=== PATIENT | male | born 1960 | race Caucasian/White ===

== ENCOUNTER → 2016-12-30 | Outpatient (CLI) | payer BC ==
[~2016-12-30] MED LIST: ALL300 PO; ATOR-22 PO; CALC667C4 PO; CARV12.52 PO; CINA0.42 PO; METO5TAB25 PO; NXM/40 PO; SUCR1TAB29 PO
== END | disposition home or self-care (01) ==
LOC: C.LABPBG 09:39
PROVIDERS: ATTEND Internal Medicine
DX: N18.4 Chronic kidney disease, stage 4 (severe) (principal)

== ENCOUNTER → 2017-01-04 | Outpatient (CLI) | payer BC ==
--- NOTE | 2017-01-04 16:09 | DIAGNOSTIC IMAGING REPORT ---
ABDOMEN AND PELVIS CT WITHOUT CONTRAST CT DOSE: 1066.80 mGycm HISTORY: Nephrocalcinosis flank pain TECHNIQUE: Multiaxial CT images of the abdomen and pelvis were performed without contrast. COMPARISON STUDY: 02/15/2006 FINDINGS: Liver spleen and pancreas are unremarkable in general configuration. There is a trace amount of air within the gallbladder neck as well as one small focus within the gallbladder fundus. There is trace amount of air within the left hepatic ductal system. Bowel pattern is considered nonobstructive. The appendix is normal. There is no evidence for an obstructing urinary tract calculus. Kidneys show a showed evidence for stone or progressive atrophy compared to the prior study. IMPRESSION: 1. Trace amount of air within the gallbladder and biliary ductal system possibly a postoperative or postsphincterotomy bases. 2. This finding should be correlated with patient's clinical history. 3. Nonobstructive bowel pattern with the appendix normal. 4. Progressive atrophy of the kidneys with no evidence for an obstructing hernia tract calculus. Electronically signed by: Jaziel Hernandez M.D. 01/04/2017 4:07 PM Dictated Date/Time: 01/04/2017 4:02 PM
== END | disposition home or self-care (01) ==
LOC: C.CTS 15:44
PROVIDERS: ATTEND Internal Medicine
DX: I10 Essential (primary) hypertension (principal); I27.2 Other secondary pulmonary hypertension; N18.4 Chronic kidney disease, stage 4 (severe); Z01.810 Encounter for preprocedural cardiovascular examination; N26.1 Atrophy of kidney (terminal)

== ENCOUNTER → 2017-03-18 | Outpatient (CLI) | payer BC ==
--- NOTE | 2017-03-18 16:21 | DIAGNOSTIC IMAGING REPORT ---
CHEST 2 VIEWS ROUTINE HISTORY: N18.4 Chronic kidney disease, stage IV (severe)I42.0 Dilated cardiomyopathy COMPARISON: Chest 12/13/2014. FINDINGS: Stable 11 mm calcified granuloma within the left upper lobe. No pleural effusions. No pneumothorax. Moderate cardiomegaly has slightly improved. No focal lung consolidations to suggest pneumonia. No evidence for pulmonary edema. Stable mild engorgement of the central pulmonary vessels. IMPRESSION: Slight improvement in the moderate cardiomegaly. No acute process within the chest. Electronically signed by: Juan Thompson M.D. 03/18/2017 4:20 PM Dictated Date/Time: 03/18/2017 4:18 PM
== END | disposition home or self-care (01) ==
LOC: C.RAD1850 15:56
PROVIDERS: ATTEND Internal Medicine
DX: N18.4 Chronic kidney disease, stage 4 (severe) (principal); I42.0 Dilated cardiomyopathy

== ENCOUNTER → 2017-03-25 | Outpatient (CLI) | payer BC ==
[2017-03-25 13:00] LABS: HEMATOCRIT 39.2 % (42-52); MEAN CELL VOLUME 102.3 fL (80-100); MEAN CORPUSCULAR HEMOGLOBIN 33.4 pg (25-34); MEAN CORPUSCULAR HGB CONC 32.7 g/dl (32-36); PLATELET COUNT 106 K/uL (130-400); RED BLOOD COUNT 3.83 M/uL (4.7-6.1)
[2017-03-25 13:04] LABS: INR 1.1 (0.9-1.1); PARTIAL THROMBOPLASTIN RATIO 1.1; PROTHROMBIN TIME (PATIENT) 11.7 SECONDS (9.0-12.0)
[2017-03-25 13:17] LABS: BASO % 0.2 %; BASO ABS # 0.01 K/uL (0-0.2); COMPLETE YES; IG% 0.2 %; LYMPH % 24.2 %; LYMPH ABS # 1.45 K/uL (1.2-3.4); NEUT % 59.4 %
[2017-03-25 13:44] LABS: BLOOD UREA NITROGEN 38 mg/dl (7-18); BUN/CREATININE RATIO 4.4 (10-20); CALCIUM 9.1 mg/dl (8.5-10.1); CARBON DIOXIDE 31 mmol/L (21-32); CHLORIDE 99 mmol/L (98-107); GLUCOSE 112 mg/dl (70-99); POTASSIUM 4.7 mmol/L (3.5-5.1); SODIUM 139 mmol/L (136-145)
== END | disposition home or self-care (01) ==
LOC: C.LABPBG 08:35
PROVIDERS: ATTEND Internal Medicine
DX: Z01.810 Encounter for preprocedural cardiovascular examination (principal); D64.9 Anemia, unspecified; N18.4 Chronic kidney disease, stage 4 (severe); I27.2 Other secondary pulmonary hypertension; I42.0 Dilated cardiomyopathy

== ENCOUNTER 2017-04-21 12:00 | Inpatient (IN) | payer BC ==
[~2017-04-21] VITALS: Ht 182.9 cm; Wt 100.9 kg
[~2017-04-21 12:00] MED LIST changes: -NXM/40 PO; -SUCR1TAB29 PO
[2017-04-21] MEDS ORDERED: OCTREOTIDE IV BOLUS & DRIP IV STA (12:14)
[2017-04-21] MEDS ORDERED: SODIUM CHLORIDE 0.9% 1000ML 1,000 ML IV STA (12:14)
[2017-04-21 12:24] LABS: BASO % 0.3 %; BASO ABS # 0.03 K/uL (0-0.2); COMPLETE YES; EOS % 3.6 %; HEMATOCRIT 30.5 % (42-52); IG% 0.3 %; LYMPH % 11.5 %; LYMPH ABS # 1.11 K/uL (1.2-3.4); MEAN CORPUSCULAR HEMOGLOBIN 33.1 pg (25-34); MEAN CORPUSCULAR HGB CONC 32.8 g/dl (32-36); MEAN PLATELET VOLUME 10.5 fL (7.4-10.4); MONO % 5.8 %; NEUT % 78.5 %; PLATELET COUNT 109 K/uL (130-400); RED BLOOD COUNT 3.02 M/uL (4.7-6.1); WHITE BLOOD COUNT 9.68 K/uL (4.8-10.8)
[2017-04-21 12:35] LABS: INR 1.1 (0.9-1.1); PARTIAL THROMBOPLASTIN RATIO 0.9; PROTHROMBIN TIME (PATIENT) 12.2 SECONDS (9.0-12.0)
--- NOTE | 2017-04-21 12:44 | DIAGNOSTIC IMAGING REPORT ---
SINGLE VIEW CHEST CLINICAL HISTORY: GI bleeding. FINDINGS: An AP, portable, upright chest radiograph is compared to study dated 03/18/2017. The examination is degraded by portable technique and patient rotation. The heart is markedly enlarged and there is atherosclerotic calcification of the thoracic aorta. The pulmonary vasculature is noncongested. No airspace consolidation, large pleural effusion, or pneumothorax is seen. A calcified granuloma in the left upper lobe is similar to previous. The skeletal structures appear osteopenic. The bony thorax is grossly intact. IMPRESSION: Marked cardiomegaly with no acute cardiopulmonary abnormality. Electronically signed by: Dameon Bunn M.D. 04/21/2017 12:43 PM Dictated Date/Time: 04/21/2017 12:42 PM
[2017-04-21] MEDS ORDERED: PANTOprazole INJ 80 MG in DEXTROSE 5% 100ML IV ONE (12:45)
[2017-04-21] MEDS ORDERED: OCTREOTIDE ACETATE INJ 100 MCG in SYRINGE 9 ML IV ONE (12:45)
[2017-04-21] MEDS ORDERED: OCTREOTIDE ACETATE INJ 500 MCG in NSS 100ML IV SCH (12:45)
[2017-04-21 12:59] LABS: BUN/CREATININE RATIO 3.6 (10-20); CALCIUM 8.6 mg/dl (8.5-10.1); CKMB/CK RATIO 2.1 (0-3.0); CREATININE 5.7 mg/dl (0.60-1.40); POTASSIUM 4.7 mmol/L (3.5-5.1)
[2017-04-21] MEDS ORDERED: PANTOprazole INJ 40 MG in DEXTROSE 5% 100ML IV SCH (13:00)
--- NOTE | 2017-04-21 14:29 | NEPHROLOGY CONSULTATION ---
DATE OF CONSULTATION: 04/21/2017 DATE OF CONSULTATION: 04/21/2017 SUBJECTIVE: Mr. Carbajal is a 56-year-old gentleman from [place], [place]. He has been a long time patient of mine. I have managed the problems and complications of his end-stage renal disease. Mr. Carbajal has a history of chronic kidney disease dating back many years. He never had a kidney biopsy. Presumably his chronic kidney disease is secondary to chronic glomerulonephritis. He had a sister who had end-stage renal disease as well and had had 2 heart transplants. She also had cardiac issues and had a heart transplant. She has since . Nonetheless, Mr. Carbajal has done remarkably well over the years. He progressed to end-stage renal disease in September of 2014 and was begun on maintenance dialysis at that time. Currently he is dialyzed at the [facility]. He dialyzes 3 times per week. He has been remarkably stable on dialysis. Even prior to initiating dialysis he has been on a transplant list at [facility]. There are some concerns about his acceptability as a transplant candidate because of previously recognized pulmonary hypertension as well as a low cardiac ejection fraction. Nonetheless, Mr. Carbajal has had no problems with shortness of breath. He has never had any indication of congestive heart failure. He has no problems with chest pain and he has not been recognized as having chronic pulmonary disease other than the elevated pulmonary artery pressure. During a recent cardiac catheterization, his AV fistula was occluded and there was a dramatic decrease in the degree of his elevated pulmonary artery pressure. Therefore, that change made him a more acceptable dialysis candidate. However, his ejection fraction is just below an acceptable range. Nonetheless, his evaluation for transplant is ongoing both at [facility] in [place] as well as the [facility] in [place]. As noted, his dialysis treatments are uncomplicated. He feels remarkably well. He works 5-6 days a week. 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 He remains physically active as a worker in that company as well. He leaves dialysis treatments and go straight to work for he will put in an additional 8 hours a day or more doing relatively heavy work. He has a secondary anemia associated with his dialysis treatments. That has been controlled with erythrocyte stimulating agents. His other health issues include a history of hypertension, but his blood pressure is controlled with dialysis. He also has a history of hypercholesterolemia. That is controlled with atorvastatin 20 mg daily. He also has a history of gout but that has been controlled well with allopurinol 300 mg daily. His immediate problem is one of generalized weakness, orthostasis and hematemesis and bloody stools. Apparently, his symptoms began late last week. Even before that he was complaining of some low back pain principally on the right side of his abdomen. He was treated with a Medrol Dosepak with prompt relief. He had no symptoms of abdominal pain or nausea at that time. He was seen by me as well as my PA, Ira Atkinson, on . At that time he was feeling remarkably well. On 04/16/2017, he felt nauseated during his dialysis treatment. He went on to develop pain in the abdomen just to the umbilicus. He had no vomiting. That evening he went out to eat. He continued to have some pain, but the discomfort was not severe. He had no problems with hematochezia and no problems with hematemesis. On Wednesday, he developed a more intense pain that he described as being "terrible." He said that the pain was severe and sharp in the right side of his abdomen just to the right of the umbilicus. The pain tended to wax and wane. There was no radiation of the discomfort. He did not eat Wednesday or Wednesday during the day. He felt better Wednesday evening. He apparently had some toast to eat and felt fine. On Wednesday04/19/2017 he said that he felt better and ate normally with no problems. However, the following day, 04/20/2017, he said that he felt fine and worked regularly. However, the pain returned late in the morning. It was somewhat severe. This morning he had a normal bowel movement. He went to dialysis. His dialysis treatment was uncomplicated, the nurses said that he looked fine and seemed to feel fine. He went to work but redeveloped his pain and went home. He had 2 bowel movements when he was home which were "dark red to purple". He also vomited blood on 2 occasions. After having one of his bowel movements he apparently passed out. This was observed by his when she heard him fall. She called an ambulance and he was brought to the hospital. Mr. Carbajal has a history of gastrointestinal disease. In 1999, he was complaining of abdominal pain. He underwent an EGD at that time. A biopsy of his duodenum and stomach were done. That showed changes of atrophy in the gastric antrum. He also had changes of mild chronic duodenitis. No particular therapy was given other than proton pump inhibitors. He took them for a brief period of time but had no further difficulties. During a hospitalization here in January of 2006 he was complaining of abdominal pain. An EGD was done at that time which showed evidence of a circumferential ulceration in the distal 2 cm of his esophagus. The duodenal mucosa was reported as being swollen and somewhat obstructive. A deep ulcer was noted in the pulse bulbar duodenum. He was treated with b.i.d. proton pump inhibitors with resolution of his symptoms. He discontinued the regular use of proton pump inhibitors several years ago. Of note, is the fact that in 2005 he was to Helicobacter pylori negative. He does not use nonsteroidal anti-inflammatory drugs. Specifically, he does not use aspirin because it gives him symptoms of dyspepsia. Additionally, he has not used any Advil or Aleve recently for his back pain. The remainder of his past medical history is as noted above. He has an anemia which is generally associated with his chronic kidney disease. He has the history of gout controlled with allopurinol. He has a history of herpes simplex type 1. He has a history of hypercholesterolemia and hypertension, both under good control. He has the history of pulmonary hypertension as described above and a low ejection fraction. However, his recent cardiac catheterization showed no evidence of significant atherosclerotic coronary disease. SURGICAL HISTORY: He has the history of the creation of AV fistula in his left upper arm for maintenance dialysis. He has had no other significant procedures done. CURRENT MEDICATIONS: His regular outpatient medications include allopurinol 300 mg daily, calcium acetate 667 mg 3 with each meal, Coreg 25 mg twice daily, Lipitor 20 mg at bedtime, and Sensipar 60 mg daily. ALLERGIES: No known drug allergies. TRANSFUSIONS: None to date. IMMUNIZATIONS: Routine childhood immunizations. He has had Pneumovax and influenza vaccine. FAMILY HISTORY: As noted above. He had a sister with end-stage renal disease as well as heart disease. His father is diabetic and hypertensive but those issues are well controlled. He has mild chronic renal insufficiency which has not been progressive. His mother is healthy. His children are healthy as well. SOCIAL HISTORY: Does not smoke and does not regularly drink alcohol. 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 REVIEW OF SYSTEMS: Unremarkable other than that noted above. OBJECTIVE: GENERAL: On physical exam, Mr. Carbajal appears to be acutely ill. He was lying in bed and during my interview and examination he did vomit some small amount of grossly bloody material. VITAL SIGNS: His blood pressure was 100/65, his pulse 60 and regular, respiratory rate 17, his pulse ox 99% on room air. His skin shows normal skin turgor. There is no rash or infiltrative skin disease. He does not appear pale to me. He has a left arm AV fistula which is functioning well with multiple dialysis needle tract leyva over the fistula. LYMPHATICS: Show no palpable lymphadenopathy. HEAD: Normal. EYES: Grossly normal. The ocular fundi were not examined. EARS, NOSE, MOUTH AND THROAT: Unremarkable. His oral mucous membranes are moist. NECK: Supple. He has no jugular venous distention lying at about 30 degrees. He has no carotid bruit and no thyromegaly. CHEST: Clear to auscultation. CARDIAC EXAMINATION: Shows a regular rhythm. S1 and S2 are normal. He has a grade 2/6 systolic murmur at the base radiating toward the neck. He also has a murmur radiating into his left chest from his left upper arm AV fistula. When the fistula is occluded that murmur disappears. ABDOMEN: Shows some tenderness in the right upper quadrant to deep palpation. He has no organomegaly or mass. Bowel sounds are present. EXTREMITIES: Show no cyanosis, clubbing or peripheral edema. Peripheral pulses are intact. He has a left upper arm AV fistula which functions well. NEUROLOGIC EXAMINATION: Completely normal with normal and symmetrical deep tendon reflexes throughout. His sensory exam has been normal to vibration and light touch. PERTINENT LABORATORY WORK: Back today shows a white count of 9680, with an essentially normal differential. His hemoglobin is 10.0. His hematocrit 30.5. His MCV is 101, his MCH 33.1. Platelet count is 109,000. His prothrombin time is 12.2 with an INR of 1.1. His PTT 23.9 with a PTTR of 0.9. Clinical chemistries show a sodium of 140 mmol/L, potassium 4.7 mmol/L, chloride 102 mmol/L, and CO2 content 33 mmol/L. His BUN is 21 and his creatinine 5.70. A random blood sugar was 117. His serum calcium is 8.6. His total bilirubin 0.7, direct bilirubin 0.2. His AST is 12. His ALT is 15. His alkaline phosphatase 77. His total CK is 43. His CK-MB is 0.9. His troponin is 0.314, his total protein 6.6, his albumin 3.2, his lipase 195. Electrocardiogram shows no acute changes. His chest x-ray done in the Emergency Room showed cardiomegaly without any acute cardiopulmonary changes. ASSESSMENT: Mr. Carbajal is a 56-year-old gentleman with a history of end-stage renal disease presumably from chronic glomerulonephritis. He is stable on dialysis and is being evaluated for transplant. He has a degree of pulmonary hypertension which to a significant degree is associated with a very large AV fistula in his left arm. He also has a reduced ejection fraction he has had for some time. He has cardiomegaly. He does not have coronary disease as documented with a recent cardiac catheterization. He now presents with abdominal pain and hematemesis in association with a history of a duodenal ulcer. I suspect that that is the source of his current GI bleeding. He did have a colonoscopy done 3 years ago which showed some diverticulosis but no other abnormalities other than a small hyperplastic polyp that was removed. RECOMMENDATIONS: He has already been started on Protonix. GI consultation should be obtained. Because of his pending transplant status any transfusion that would be necessary should be done with leukocyte poor irradiated cells. Leukocyte filter should be used as well. His regular medications should be resumed as soon as he is capable of eating. Daily partial metabolic profiles should be done to monitor his potassium given his GI bleeding. No other immediate recommendations. I will follow along with you. He will be dialyzed according to his regular schedule.
[2017-04-21] MEDS ORDERED: ONDANSETRON INJ 2 MG/ML 2 ML VIAL ONE (14:42)
[2017-04-21] MEDS ORDERED: ONDANSETRON INJ 2 MG/ML 2 ML VIAL IV STA (14:42)
[2017-04-21] MEDS ORDERED: METOCLOPRAMIDE HCL INJ 5 MG/ML 2 ML VIAL IV STA (14:51)
[2017-04-21] MEDS ORDERED: ACETAMINOPHEN 325 MG TAB PO PRN (15:00)
--- NOTE | 2017-04-21 15:13 | History and Physical ---
History & Physical Date & Time of Service: Apr 21, 2017 at 15:06 Chief Complaint: Gi Bleed Primary Care Physician: Nakul Becerra M.D. History of Present Illness Source: patient, family, clinic records, hospital records This patient is a pleasant 56-year-old male that came to the emergency department by ambulance from dialysis today with an episode of hematemesis and syncope. The patient is currently complaining of severe nausea. He did have abdominal pain. That has dissipated. He also had an episode of fairly bright red blood in his stool 4 days ago. The patient is followed by Dr. Becerra from nephrology. The patient denies any NSAID use given his kidney disease. He also denies any alcohol or nicotine use. The patient reportedly had a normal colonoscopy a few years back. Past Medical/Surgical History Medical Problems: (1) Hypertension Status: Chronic (2) Kidney disease Status: Chronic Dilated cardiomyopathy with an ejection fraction of 40% ESRD dialysis Wednesday, Wednesday, Wednesday Status with arthroscopic of the knee Family History Diabetes mellitus FH: heart disease Kidney disease Social History Smoking Status: Never Smoker Smokeless Tobacco Use: No Alcohol Use: none Drug Use: none Occupational Status: employed Immunizations History of Influenza Vaccine: Yes History of Tetanus Vaccine?: Unknown History of Pneumococcal: No History of Hepatitis B Vaccine: No Multi-Drug Resistant Organisms History of MDRO: No Allergies Coded Allergies: No Known Allergies (Verified , 04/21/17) Home Medications Scheduled Allopurinol (Zyloprim *), 300 MG PO QAM Atorvastatin (Lipitor), 20 MG PO QAM Calcium Acetate (Phoslo 667 Mg), 3 CAP PO TID Carvedilol (Coreg), 1 TAB PO BID Cinacalcet (Sensipar), 30 MG PO HS Review of Systems 10 system review performed and negative unless noted in HPI or below Physical Exam Vital Signs Date Time Temp Pulse Resp B/P (MAP) Pulse Ox O2 Delivery O2 Flow Rate FiO2 04/21/17 14:20 62 14 100 04/21/17 14:01 109/73 04/21/17 13:59 110/72 04/21/17 13:50 64 12 100 04/21/17 13:45 62 12 110/72 100 04/21/17 13:30 66 15 99 04/21/17 13:15 64 14 95 04/21/17 13:00 76 20 100 04/21/17 12:45 59 17 98 04/21/17 12:42 60 17 100/65 99 Room Air 04/21/17 12:31 97/62 04/21/17 12:30 60 12 100 04/21/17 12:22 94/57 04/21/17 12:15 58 19 100 04/21/17 12:11 60 04/21/17 12:08 36.6 60 16 104/65 100 Room Air 04/21/17 12:04 104/65 General Appearance: + moderate distress (diaphoretic) Head: normocephalic Eyes: EOMI ENT: + pertinent finding (oral mucosa dry) Neck: no JVD Respiratory/Chest: lungs clear Cardiovascular: regular rate, rhythm Abdomen/GI: non tender, soft, + pertinent finding (bowel sounds hypoactive. No guarding or rebound tenderness.) Extremities/Musculoskelatal: no calf tenderness, no pedal edema Neurologic/Psych: no motor/sensory deficits, oriented x 3 Skin: + pertinent finding (warm and moist) Diagnostics Laboratory Results Results Past 24 Hours Test 04/21/17 12:07 04/21/17 14:51 Range/Units White Blood Count 9.68 4.8-10.8 K/uL Red Blood Count 3.02 4.7-6.1 M/uL Hemoglobin 10.0 14.0-18.0 g/dL Hematocrit 30.5 42-52 % Mean Corpuscular Volume 101.0 80-100 fL Mean Corpuscular Hemoglobin 33.1 25-34 pg Mean Corpuscular Hemoglobin Concent 32.8 32-36 g/dl Platelet Count 109 130-400 K/uL Mean Platelet Volume 10.5 7.4-10.4 fL Neutrophils (%) (Auto) 78.5 % Lymphocytes (%) (Auto) 11.5 % Monocytes (%) (Auto) 5.8 % Eosinophils (%) (Auto) 3.6 % Basophils (%) (Auto) 0.3 % Neutrophils # (Auto) 7.60 1.4-6.5 K/uL Lymphocytes # (Auto) 1.11 1.2-3.4 K/uL Monocytes # (Auto) 0.56 0.11-0.59 K/uL Eosinophils # (Auto) 0.35 0-0.5 K/uL Basophils # (Auto) 0.03 0-0.2 K/uL RDW Standard Deviation 53.0 36.4-46.3 fL RDW Coefficient of Variation 14.6 11.5-14.5 % Immature Granulocyte % (Auto) 0.3 % Immature Granulocyte # (Auto) 0.03 0.00-0.02 K/uL Prothrombin Time 12.2 9.0-12.0 SECONDS Prothromb Time International Ratio 1.1 0.9-1.1 Activated Partial Thromboplast Time 23.9 21.0-31.0 SECONDS Partial Thromboplastin Ratio 0.9 Sodium Level 140 136-145 mmol/L Potassium Level 4.7 3.5-5.1 mmol/L Chloride Level 102 98-107 mmol/L Carbon Dioxide Level 33 21-32 mmol/L Anion Gap 5.0 3-11 mmol/L Blood Urea Nitrogen 21 7-18 mg/dl Creatinine 5.70 0.60-1.40 mg/dl Est Creatinine Clear Calc Drug Dose 18.5 ml/min Estimated GFR () 11.9 Estimated GFR (Non- 10.3 BUN/Creatinine Ratio 3.6 10-20 Random Glucose 117 70-99 mg/dl Calcium Level 8.6 8.5-10.1 mg/dl Total Bilirubin 0.7 0.2-1 mg/dl Direct Bilirubin 0.2 0-0.2 mg/dl Aspartate Amino Transf (AST/SGOT) 12 15-37 U/L Alanine Aminotransferase (ALT/SGPT) 15 12-78 U/L Alkaline Phosphatase 77 45-117 U/L Total Creatine Kinase 43 39-308 U/L Creatine Kinase MB 0.9 0.5-3.6 ng/ml Creatine Kinase MB Ratio 2.1 0-3.0 Troponin I 0.314 0-0.045 ng/ml Total Protein 6.6 6.4-8.2 gm/dl Albumin 3.2 3.4-5.0 gm/dl Lipase 195 73-393 U/L Diagnostic Radiology SINGLE VIEW CHEST CLINICAL HISTORY: GI bleeding. FINDINGS: An AP, portable, upright chest radiograph is compared to study dated 03/18/2017. The examination is degraded by portable technique and patient rotation. The heart is markedly enlarged and there is atherosclerotic calcification of the thoracic aorta. The pulmonary vasculature is noncongested. No airspace consolidation, large pleural effusion, or pneumothorax is seen. A calcified granuloma in the left upper lobe is similar to previous. The skeletal structures appear osteopenic. The bony thorax is grossly intact. IMPRESSION: Marked cardiomegaly with no acute cardiopulmonary abnormality. EKG Sinus bradycardia 55 bpm No ischemic changes noted Impression Assessment and Plan 56-year-old male presented to the emergency department with an episode of syncope, hematemesis and bright red blood in his stool. Cause of his GI bleed is unknown as the patient does not take any NSAIDs or anticoagulation. GI bleed -Admit to telemetry -Protonix drip -GI consult-discussed with Dr. Chaves the plans on taking the patient to the OR for scope today pending clearance from anesthesia -NPO -Reglan 10 mg IV now -Zofran 4 mg IV every 6 hours prn Elevated troponin-likely a mixture of demand ischemia and end-stage renal disease -tele monitoring -Cardiac enzymes 3 -Repeat EKG in the morning or chest pain occurs -Continue carvedilol 25 mg po BID Dilated cardiomyopathy with an ejection fraction of 40% -This must be taken into consideration with fluid resuscitation and the patient is going to receive blood products ESRD -Nephrology consult -Continue Sensipar 30 mg daily -Continue PhosLo 667 mg 3 tabs TID DVT prophylaxis -Chemical means contraindicated -Teds, SCDs CODE STATUS -LEVEL I FULL CODE This chart was completed in part utilizing [employer] Speech Voice Recognition software. Attempts were made to minimize the grammatical errors, random word insertions, pronoun errors and incomplete sentences. Any formal questions or concerns about the content, text or information contained within the body of this dictation should be directly addressed to the provider for clarification. Attending Addendum: I have physically seen and examined this patient, have directed the physician assistants medical activities, and agree with the H&P as noted above with the following exceptions: NONE The patient is awake, well-developed and adequately nourished, alert and oriented 3, normocephalic and atraumatic, mildly diaphoretic, lying in bed and in otherwise no acute distress. HEENT--PERRL, EOMI, mucous membranes and oropharynx dry. Neck--supple, no JVD or bruits, thyroid normal, trachea midline, no adenopathy. Heart--normal S1 and S2, no extra beats, no murmurs, rubs or gallops. Lungs--clear bilaterally with good air movement, no respiratory distress, no accessory muscle use. Abdomen--normal bowel sounds and soft, nontender and nondistended, no hernias or masses, no organomegaly. Extremities--no cyanosis, clubbing or edema. There are good distal pulses b/l. Dermatologic--normal skin turgor, normal color, warm and dry, no abnormal lymph nodes, no rash. Neurologic--cranial nerves II through XII grossly intact. Rheumatologic--normal range of motion. Psychiatric--normal affect. Assessment and Plan: 1. GI bleed--admit to telemetry for close monitoring. H&H every 6 hours for next 24 hours. Protonix bolus then drip. Nothing by mouth status. Zofran 4 mg IV every 6 hours when necessary. GI consult with Dr. Rodolfo Chaves with plans to take patient to the OR for scoping procedure today. 2. Hypertension/elevated troponin/dilated cardiomyopathy with ejection fraction 40%--The patient will be admitted to telemetry for serial cardiac enzymes, cardiac rhythm monitoring and a 2-D echocardiogram with Dopplers. May be associated with supply demand mismatch and/or end-stage renal disease. Continue carvedilol 25 mg by mouth twice a day. Level of Care Telemetry Advanced Directives Existing Advance Directive: No Existing Living Will: No Existing Power of Sales Representative [employer]arel: No Resuscitation Status FULL RESUSCITATION VTE Prophylaxis VTE Risk Assessment Done? Y/N: Yes Risk Level: Low Given or contraindicated: T.E.D. Stockings, SCD's, Contraindicated Social Service Consult None Apply
[2017-04-21 15:37] LABS: HEMATOCRIT 29.3 % (42-52)
[2017-04-21] MEDS ORDERED: LIDOCAINE HCL 2% 2 ML VIAL (20MG/ML) ONE (16:14)
[2017-04-21] MEDS ORDERED: SUCCINYLCHOLINE CHLORIDE 20 MG/ML 10 ML VIAL IV ONE (16:14)
[2017-04-21] MEDS ORDERED: PROPOFOL IV EMULSION 10 MG/ML 20 ML VIAL IV ONE (16:14)
--- NOTE | 2017-04-21 16:15 | Gastrointestinal Consultation ---
Gastrointestinal Consultation Date of Consultation: Apr 21, 2017 Attending Physician: Radha Barnes PA-C Consulting Physician: Dr. Chaves/LISSET Bruce Reason for Consultation: GIB History of Present Illness Patient is a 56 year old male with a history of end-stage renal disease presumably from glomerulonephritis receiving dialysis on MWF. He had reported some nausea at dialysis last Wednesday. Over the weekend, he states he was having some mild abdominal pains with some bright red rectal bleeding. The abdominal pain has since resolved. He again reported nausea on Wednesday but was well enough to work yesterday. Today, he states he was having having several bowel movements that were bloody. After dialysis, he went to work but left early as he was feeling dizzy and lightheaded and syncopal. At home, he passed a few more bloody stools and then began vomiting. Per his , the emesis was bloody mixed with clots. Hemoglobin one month ago was noted to be 12.8 and down to 10.0 on arrival with repeat down to 9.7. Hematocrit is 29.3. His blood pressure is adequate at 127/73 and pulse rate is 65. He is 100% O2 sat on room air. He denies any chest pain, palpitations, shortness of breath or cough. No abdominal pain at present. Last emesis was approximately one hour ago. He has been started on Protonix and Octreotide drips. Denies any alcohol, aspirin or NSAID use. Past medical history is significant for a duodenal ulceration in the early . Last colonoscopy was performed by Dr. Timmons in 2012 and significant only for a single hyperplastic polyp and mild diverticulosis. Past Medical/Surgical History Past Medical History: 1. Hypertension 2. ESRD 3. Duodenal ulcer 4. Diverticulosis Past Surgical History: 1. EGD 2. Colonoscopy 3. Knee arthroscopy 4. AV fistula Family History Diabetes mellitus FH: heart disease Kidney disease Negative for GI malignancy or IBD Social History Smoking Status: Never Smoker Alcohol Use: none Drug Use: none Marital Status: Occupation Status: employed Allergies Coded Allergies: No Known Allergies (Verified , 04/21/17) Current Medications Home Meds and Scripts Medications Dose Route/Sig Max Daily Dose Days Date Category Coreg (Carvedilol) 12.5 Mg Tab 1 Tab PO BID 04/23/15 Reported Sensipar (Cinacalcet) 30 Mg Tab 30 Mg PO HS 10/23/14 Reported Phoslo 667 Mg (Calcium Acetate) 667 Mg Cap 3 Cap PO TID 10/23/14 Reported Lipitor (Atorvastatin Calcium) 20 Mg Tab 20 Mg PO QAM 10/01/08 Reported Zyloprim * (Allopurinol) 300 Mg Tab 300 Mg PO QAM 10/01/08 Reported Review of Systems See HPI for pertinent positives & negatives. A total of 10 systems reviewed and were otherwise negative. Physical Exam Date Time Temp Pulse Resp B/P (MAP) Pulse Ox O2 Delivery O2 Flow Rate FiO2 04/21/17 15:25 72 18 100 04/21/17 15:10 69 14 93 04/21/17 15:01 123/73 04/21/17 14:55 65 15 96 04/21/17 14:40 61 12 100 04/21/17 14:25 60 6 99 04/21/17 14:20 62 14 100 04/21/17 14:01 109/73 04/21/17 13:59 110/72 04/21/17 13:50 64 12 100 04/21/17 13:45 62 12 110/72 100 04/21/17 13:30 66 15 99 04/21/17 13:15 64 14 95 04/21/17 13:00 76 20 100 04/21/17 12:45 59 17 98 04/21/17 12:42 60 17 100/65 99 Room Air 04/21/17 12:31 97/62 04/21/17 12:30 60 12 100 04/21/17 12:22 94/57 04/21/17 12:15 58 19 100 04/21/17 12:11 60 04/21/17 12:08 36.6 60 16 104/65 100 Room Air 04/21/17 12:04 104/65 General Appearance: WD/WN, no apparent distress Eyes: EOMI ENT: hearing grossly normal Neck: supple Respiratory/Chest: lungs clear, normal breath sounds, no respiratory distress Cardiovascular: regular rate, rhythm, no gallop, no murmur Abdomen: non tender, soft, + abnormal bowel sounds (hyperactive) Extremities: normal inspection Neurologic/Psych: alert, normal mood/affect, oriented x 3 Skin: warm/dry Laboratory Results Last 24 Hours Test 04/21/17 12:07 04/21/17 15:15 White Blood Count 9.68 K/uL Red Blood Count 3.02 M/uL Hemoglobin 10.0 g/dL 9.7 g/dL Hematocrit 30.5 % 29.3 % Mean Corpuscular Volume 101.0 fL Mean Corpuscular Hemoglobin 33.1 pg Mean Corpuscular Hemoglobin Concent 32.8 g/dl Platelet Count 109 K/uL Mean Platelet Volume 10.5 fL Neutrophils (%) (Auto) 78.5 % Lymphocytes (%) (Auto) 11.5 % Monocytes (%) (Auto) 5.8 % Eosinophils (%) (Auto) 3.6 % Basophils (%) (Auto) 0.3 % Neutrophils # (Auto) 7.60 K/uL Lymphocytes # (Auto) 1.11 K/uL Monocytes # (Auto) 0.56 K/uL Eosinophils # (Auto) 0.35 K/uL Basophils # (Auto) 0.03 K/uL RDW Standard Deviation 53.0 fL RDW Coefficient of Variation 14.6 % Immature Granulocyte % (Auto) 0.3 % Immature Granulocyte # (Auto) 0.03 K/uL Prothrombin Time 12.2 SECONDS Prothromb Time International Ratio 1.1 Activated Partial Thromboplast Time 23.9 SECONDS Partial Thromboplastin Ratio 0.9 Sodium Level 140 mmol/L Potassium Level 4.7 mmol/L Chloride Level 102 mmol/L Carbon Dioxide Level 33 mmol/L Anion Gap 5.0 mmol/L Blood Urea Nitrogen 21 mg/dl Creatinine 5.70 mg/dl Est Creatinine Clear Calc Drug Dose 18.5 ml/min Estimated GFR () 11.9 Estimated GFR (Non- 10.3 BUN/Creatinine Ratio 3.6 Random Glucose 117 mg/dl Calcium Level 8.6 mg/dl Total Bilirubin 0.7 mg/dl Direct Bilirubin 0.2 mg/dl Aspartate Amino Transf (AST/SGOT) 12 U/L Alanine Aminotransferase (ALT/SGPT) 15 U/L Alkaline Phosphatase 77 U/L Total Creatine Kinase 43 U/L Creatine Kinase MB 0.9 ng/ml Creatine Kinase MB Ratio 2.1 Troponin I 0.314 ng/ml Total Protein 6.6 gm/dl Albumin 3.2 gm/dl Lipase 195 U/L Impression Patient is a 56 year old male with ESRD on dialysis brought to the ER via EMS with syncope, bloody stools, nausea with vomiting and hematemesis. Plan 1. Keep NPO for now. 2. Continue PPI and Octreotide ggts for now. 3. EGD emergently with Dr. Chaves in the OR. 4. Additional recommendations pending results of testing. Thank you for allowing us to participate in the care of this pleasant patient. If you have any questions or concerns, please do not hesitate to contact me. Agree with LISSET Bruce as above Abd: Soft, NT, ND, hyperactive bowel sounds Discussed Case with Radha Cameron, PAC and recommended Protonix gtt, NPO and Reglan 10mg IV x 1 Emergent EGD now
--- NOTE | 2017-04-21 17:17 | EMERGENCY ROOM VISIT NOTE ---
History Report prepared by Aysha: Kina Clifford Under the Supervision of: Dr. Luis Alberto Putnam D.O. First contact with patient: 12:04 Chief Complaint: GI ASSESSMENT Stated Complaint: GI BLEED History of Present Illness The patient is a 56 year old male who presents to the Emergency Room with complaints of persistent hematemesis starting 1030 today. The patient presents to the ED by EMS. He received fluids and Zofran in route. He was not feeling well last week. He had some nausea and an episode of bloody stools 4 days ago. Today he was feeling well in the morning. He went to dialysis today and upon returning home he was feeling unwell. He had bloody stools today. He had an episode of syncope while in the bathroom. He then started having hematemesis. The blood was dark red. He reports nausea, weakness, and lightheadedness. He did not eat today. He is not on blood thinners. He has a history of kidney disease and high cholesterol. He denies any history of liver problems. He had an endoscopy several years ago which was normal. He has had a colonoscopy in the past which was normal. Source of History: patient, spouse/significant other Onset: 1030 Position: other (global) Quality: other (hematemesis) Timing: other (persistent) Associated Symptoms: + nausea, + weakness Note: Pt reports bloody stool, lightheadedness, syncope. Review of Systems See HPI for pertinent positives & negatives. A total of 10 systems reviewed and were otherwise negative. Past Medical & Surgical Medical Problems: (1) GI bleed (2) Hypertension (3) Kidney disease Family History Diabetes mellitus FH: heart disease Kidney disease Social History Smoking Status: Never Smoker Drug Use: none Occupation Status: employed Current/Historical Medications Scheduled Allopurinol (Zyloprim *), 300 MG PO QAM Atorvastatin (Lipitor), 20 MG PO QAM Calcium Acetate (Phoslo 667 Mg), 3 CAP PO TID Carvedilol (Coreg), 1 TAB PO BID Cinacalcet (Sensipar), 30 MG PO HS Allergies Coded Allergies: No Known Allergies (Verified , 04/21/17) Physical Exam Vital Signs Date Time Temp Pulse Resp B/P (MAP) Pulse Ox O2 Delivery O2 Flow Rate FiO2 04/21/17 16:15 67 14 99 04/21/17 16:01 124/76 8/2/17 16:00 70 22 100 04/21/17 15:45 65 14 98 04/21/17 15:30 66 18 100 04/21/17 15:25 72 18 100 04/21/17 15:10 69 14 93 04/21/17 15:01 123/73 04/21/17 14:55 65 15 96 04/21/17 14:40 61 12 100 04/21/17 14:25 60 6 99 04/21/17 14:20 62 14 100 04/21/17 14:01 109/73 04/21/17 13:59 110/72 04/21/17 13:50 64 12 100 04/21/17 13:45 62 12 110/72 100 04/21/17 13:30 66 15 99 04/21/17 13:15 64 14 95 04/21/17 13:00 76 20 100 04/21/17 12:45 59 17 98 04/21/17 12:42 60 17 100/65 99 Room Air 04/21/17 12:31 97/62 04/21/17 12:30 60 12 100 04/21/17 12:22 94/57 04/21/17 12:15 58 19 100 04/21/17 12:11 60 04/21/17 12:08 36.6 60 16 104/65 100 Room Air 04/21/17 12:04 104/65 Physical Exam CONSTITUTIONAL/VITAL SIGNS: Reviewed / noted above. GENERAL: Non-toxic in appearance. INTEGUMENTARY: Warm, dry, and slightly pale. HEAD: Normocephalic. EYES: without scleral icterus or trauma. ENT/OROPHARYNX: clear and moist. LYMPHADENOPATHY/NECK: Is supple without lymphadenopathy or meningismus. RESPIRATORY: Lungs clear and equal. CARDIOVASCULAR: Regular rate and rhythm. GI/ABDOMEN: Soft and nontender. No organomegaly or pulsatile mass. No rebound or guarding. Normal bowel sounds. EXTREMITIES: Warm and well perfused. BACK: No CVA tenderness. NEUROLOGICAL: Intact without focal deficits. PSYCHIATRIC: normal affect. MUSCULOSKELETAL: Normally developed with good muscle tone. Medical Decision & Procedures ER Provider Diagnostic Interpretation: X ray results and stated below per my interpretation and radiology interpretation. SINGLE VIEW CHEST CLINICAL HISTORY: GI bleeding. FINDINGS: An AP, portable, upright chest radiograph is compared to study dated 03/18/2017. The examination is degraded by portable technique and patient rotation. The heart is markedly enlarged and there is atherosclerotic calcification of the thoracic aorta. The pulmonary vasculature is noncongested. No airspace consolidation, large pleural effusion, or pneumothorax is seen. A calcified granuloma in the left upper lobe is similar to previous. The skeletal structures appear osteopenic. The bony thorax is grossly intact. IMPRESSION: Marked cardiomegaly with no acute cardiopulmonary abnormality. Electronically signed by: Dameon Bunn M.D. 04/21/2017 12:43 PM Dictated Date/Time: 04/21/2017 12:42 PM Laboratory Results 04/21/17 12:07 Red Blood Count 3.02, Mean Corpuscular Volume 101.0, Mean Corpuscular Hemoglobin 33.1, Mean Corpuscular Hemoglobin Concent 32.8, Mean Platelet Volume 10.5, Neutrophils (%) (Auto) 78.5, Lymphocytes (%) (Auto) 11.5, Monocytes (%) ( Auto) 5.8, Eosinophils (%) (Auto) 3.6, Basophils (%) (Auto) 0.3, Neutrophils # ( Auto) 7.60, Lymphocytes # (Auto) 1.11, Monocytes # (Auto) 0.56, Eosinophils # ( Auto) 0.35, Basophils # (Auto) 0.03 04/21/17 15:15 04/21/17 12:07 Test 04/21/17 12:07 White Blood Count 9.68 K/uL (4.8-10.8) Red Blood Count 3.02 M/uL (4.7-6.1) Hemoglobin 10.0 g/dL (14.0-18.0) Hematocrit 30.5 % (42-52) Mean Corpuscular Volume 101.0 fL (80-100) Mean Corpuscular Hemoglobin 33.1 pg (25-34) Mean Corpuscular Hemoglobin Concent 32.8 g/dl (32-36) Platelet Count 109 K/uL (130-400) Mean Platelet Volume 10.5 fL (7.4-10.4) Neutrophils (%) (Auto) 78.5 % Lymphocytes (%) (Auto) 11.5 % Monocytes (%) (Auto) 5.8 % Eosinophils (%) (Auto) 3.6 % Basophils (%) (Auto) 0.3 % Neutrophils # (Auto) 7.60 K/uL (1.4-6.5) Lymphocytes # (Auto) 1.11 K/uL (1.2-3.4) Monocytes # (Auto) 0.56 K/uL (0.11-0.59) Eosinophils # (Auto) 0.35 K/uL (0-0.5) Basophils # (Auto) 0.03 K/uL (0-0.2) RDW Standard Deviation 53.0 fL (36.4-46.3) RDW Coefficient of Variation 14.6 % (11.5-14.5) Immature Granulocyte % (Auto) 0.3 % Immature Granulocyte # (Auto) 0.03 K/uL (0.00-0.02) Prothrombin Time 12.2 SECONDS (9.0-12.0) Prothromb Time International Ratio 1.1 (0.9-1.1) Activated Partial Thromboplast Time 23.9 SECONDS (21.0-31.0) Partial Thromboplastin Ratio 0.9 Anion Gap 5.0 mmol/L (3-11) Est Creatinine Clear Calc Drug Dose 18.5 ml/min Estimated GFR () 11.9 Estimated GFR (Non- 10.3 BUN/Creatinine Ratio 3.6 (10-20) Calcium Level 8.6 mg/dl (8.5-10.1) Total Bilirubin 0.7 mg/dl (0.2-1) Direct Bilirubin 0.2 mg/dl (0-0.2) Aspartate Amino Transf (AST/SGOT) 12 U/L (15-37) Alanine Aminotransferase (ALT/SGPT) 15 U/L (12-78) Alkaline Phosphatase 77 U/L (45-117) Total Creatine Kinase 43 U/L (39-308) Creatine Kinase MB 0.9 ng/ml (0.5-3.6) Creatine Kinase MB Ratio 2.1 (0-3.0) Troponin I 0.314 ng/ml (0-0.045) Total Protein 6.6 gm/dl (6.4-8.2) Albumin 3.2 gm/dl (3.4-5.0) Lipase 195 U/L (73-393) Laboratory results as stated above per my review. Medications Administered Medications (Trade) Dose Ordered Sig/Inés Route Start Time Stop Time Status Last Admin Dose Admin Sodium Chloride 1,000 ml @ 999 mls/hr Q1H1M STAT IV 04/21/17 12:14 04/21/17 13:14 DC 04/21/17 12:14 999 MLS/HR Octreotide Acetate 100 mcg/ Syringe 10 ml @ 3 mls/min NOW ONCE IV 04/21/17 12:45 04/21/17 12:48 DC 04/21/17 12:54 3 MLS/MIN Octreotide Acetate 500 mcg/ Sodium Chloride 105 ml @ 10 mls/hr [id number] IV 04/21/17 12:45 04/21/17 23:14 04/21/17 12:54 10 MLS/HR Pantoprazole Sodium 80 mg/ Dextrose 120 ml @ 480 mls/hr NOW ONCE IV 04/21/17 12:45 04/21/17 12:59 DC 04/21/17 12:54 480 MLS/HR Pantoprazole Sodium 40 mg/ Dextrose 100 ml @ 20 mls/hr Q5H IV 04/21/17 13:00 04/21/17 17:59 04/21/17 12:54 20 MLS/HR Ondansetron HCl (Zofran Inj) 4 mg NOW STAT IV 04/21/17 14:42 04/21/17 14:44 DC 04/21/17 14:42 4 MG Metoclopramide HCl (Reglan Inj) 10 mg NOW STAT IV 04/21/17 14:51 04/21/17 14:52 DC 04/21/17 14:51 10 MG ECG Indication: syncope Rate (beats per minute): 55 Rhythm: sinus bradycardia Findings: no ectopy, other (no acute injury) ED Course 1205: Previous medical records were reviewed. The patient was evaluated in room B1. A complete history and physical examination was performed. 1214: NSS 1000 ml @ 999 mls/hr IV. 1223: I discussed the patient's case with [place]. [place]erra [facility] [place]. He will evaluate the patient. 1229: I discussed the patient's case with KANDI Fraire gastroenterology. She will come evaluate the patient. 1245: Pantoprazole Sodium 80 mg/Dextrose 120 ml @ 480 mls/hr IV, Octreotide Acetate 500 mcg/Sodium Chloride 105 ml @ 10 mls/hr IV, Octreotide Acetate 100 mcg/Syringe 10 ml @ 3 mls/min IV. 1300: Pantoprazole Sodium 40 mg/Dextrose 100 ml @ 20 mls/hr IV. 1409: I discussed the patient's case with Dr. Lopez, [facility] [place]. The patient will be evaluated for further treatment and disposition. 1420: On reevaluation, the patient is stable. I discussed the results and findings with the patient and his . They verbalized agreement of the treatment plan. The patient will be evaluated for further management and care. Medical Decision Differential diagnosis: Etiologies such as diverticulosis, AVM, coagulopathy, colitis, inflammatory bowel disease, malignancy, Marlys-Mccarthy tear, esophagitis, peptic ulcer disease , variceal bleed, gastritis, epistaxis, fissure, hemorrhoids, as well as others were entertained. This is a 56-year-old male who presents to the ED with a chief complaint of GI bleed. The patient states that he has not felt well for about a week. He states that on Wednesday he had a bloody bowel movement. His symptoms resolved until today. After dialysis today, the patient had a bloody bowel movement. He vomited some blood shortly thereafter and had a syncopal episode. He was brought into the ED for evaluation. The patient denies any additional symptoms at this time. No chest pains or shortness of breath. He denies any previous history of GI bleeds. The patient's physical exam was relatively unremarkable. He is not on anticoagulants. Hemoglobin was 10. Troponin is slightly elevated. Chemistry panel was unremarkable. The patient was demented and was stable. I spoke with the hospitalist. Dr. Becerra saw the patient in the emergency department. I also spoke with the GI service. The patient will be admitted for further evaluation and care. Medication Reconcilliation Current Medication List: was personally reviewed by me Blood Pressure Screening Patient's blood pressure: Normal blood pressure Blood pressure disposition: Did not require urgent referral Consults Time Called: 1220 Consulting Physician: Dr. Becerra [facility] [place] Returned Call: [phone] I discussed the patient's case with him. He will evaluate the patient. Additional Consults: Time Called: 1227 Consulted Physician: KANDI Fraire gastroenterology Returned Call: [phone] Additional Comments: I discussed the patient's case with KANDI Fraire gastroenterology. She will come evaluate the patient. Time Called: 1358 Consulted Physician: SERGIO Vasquez hospitalist Returned Call: [phone] Additional Comments: Discussed the patient's case. The patient will be evaluated for further treatment and disposition. Impression Primary Impression: GI bleed Scribe Attestation The scribe's documentation has been prepared under my direction and personally reviewed by me in its entirety. I confirm that the note above accurately reflects all work, treatment, procedures, and medical decision making performed by me. Departure Information Dispostion Being Evaluated By Hospitalist Referrals Nakul Becerra M.D. (PCP) Patient Instructions My [facility]
--- NOTE | 2017-04-21 17:19 | GI REPORT ---
Procedure Date: 04/21/2017 4:17 PM Procedure: Upper GI endoscopy Indications: Coffee-ground emesis, Melena, Active gastrointestinal bleeding Medicines: General Anesthesia Complications: No immediate complications. Estimated Blood Loss: Estimated blood loss: none. Procedure: Pre-Anesthesia Assessment: - Prior to the procedure, a History and Physical was performed, and patient medications and allergies were reviewed. The patient's tolerance of previous anesthesia was also reviewed. The risks and benefits of the procedure and the sedation options and risks were discussed with the patient. All questions were answered, and informed consent was obtained. Prior Anticoagulants: The patient has taken no previous anticoagulant or antiplatelet agents. ASA Grade Assessment: E - Emergency. After reviewing the risks and benefits, the patient was deemed in satisfactory condition to undergo the procedure. After obtaining informed consent, the endoscope was passed under direct vision. Throughout the procedure, the patient's blood pressure, pulse, and oxygen saturations were monitored continuously. The Scope was introduced through the mouth, and advanced to the second part of duodenum. The upper GI endoscopy was accomplished without difficulty. The patient tolerated the procedure well. Findings: A non-obstructing Schatzki ring (acquired) was found at the gastroesophageal junction. The entire examined stomach was normal. Biopsies were taken with a cold forceps for histology. One oozing cratered duodenal ulcer with a visible vessel was found in the duodenal bulb. The lesion was 10 mm in largest dimension. Area was successfully injected with 2 mL of a 1:10,000 solution of epinephrine for hemostasis. Fulguration to ablate the remaining base of the lesion by heater probe was successful. Impression: - Non-obstructing Schatzki ring. - Normal stomach. Biopsied. - One oozing duodenal ulcer with a visible vessel. Injected. Treated with a heater probe. Recommendation: - Admit the patient to hospital [facility] for ongoing care. - Clear liquid diet today. - Give Protonix (pantoprazole): initiate therapy with 80 mg IV bolus, then 8 mg/hr IV by continuous infusion for 3 days. - Await pathology results. Rodolfo Chaves DO 04/21/2017 5:18:48 PM This report has been signed electronically. Note Initiated On: 04/21/2017 4:17 PM I attest to the content of the Intraoperative Record and orders documented therein, exceptions below
[2017-04-21] MEDS ORDERED: EpINEphrine INJ 1MG/ML AMP 1 MG/ML AMP INJ ONE (17:23)
[2017-04-21] MEDS ORDERED: EpHEDrine SULFATE INJ 50 MG/ML AMP IV PRN (17:30)
[2017-04-21] MEDS ORDERED: FENTANYL CITRATE INJ 50 MCG/1 ML 2 ML VIAL IV PRN (17:30)
[2017-04-21] MEDS ORDERED: HYDROmorphone INJ 1 MG/ML SYR IV PRN (17:30)
[2017-04-21] MEDS ORDERED: ATROPINE SULFATE 0.1 MG/ML 5ML SYR IV PRN (17:30)
[2017-04-21] MEDS ORDERED: ONDANSETRON INJ 2 MG/ML 2 ML VIAL IV PRN (17:30)
[2017-04-21] MEDS: PANTOprazole INJ 40 MG in DEXTROSE 5% 100ML IV SCH ×2 (17:45→21:51)
--- NOTE | 2017-04-21 18:16 | Anesthesiology Progress Note ---
Anesthesia Post Op Note Date & Time Apr 21, 2017 at 18:15 Vital Signs Pain Intensity: 0 Vital Signs Past 12 Hours Date Time Temp Pulse Resp B/P (MAP) Pulse Ox O2 Delivery O2 Flow Rate FiO2 04/21/17 17:50 36.9 67 16 118/70 100 Nasal Cannula 2 04/21/17 17:40 66 15 119/71 100 Oxymask 6 04/21/17 17:30 71 15 119/66 100 Oxymask 10 04/21/17 17:20 36.2 72 19 115/75 100 Oxymask 10 04/21/17 16:15 67 14 99 04/21/17 16:01 124/76 04/21/17 16:00 70 22 100 04/21/17 15:45 65 14 98 04/21/17 15:30 66 18 100 04/21/17 15:25 72 18 100 04/21/17 15:10 69 14 93 04/21/17 15:01 123/73 04/21/17 14:55 65 15 96 04/21/17 14:40 61 12 100 04/21/17 14:25 60 6 99 04/21/17 14:20 62 14 100 04/21/17 14:01 109/73 04/21/17 13:59 110/72 04/21/17 13:50 64 12 100 04/21/17 13:45 62 12 110/72 100 04/21/17 13:30 66 15 99 04/21/17 13:15 64 14 95 04/21/17 13:00 76 20 100 04/21/17 12:45 59 17 98 04/21/17 12:42 60 17 100/65 99 Room Air 04/21/17 12:31 97/62 04/21/17 12:30 60 12 100 04/21/17 12:22 94/57 04/21/17 12:15 58 19 100 04/21/17 12:11 60 04/21/17 12:08 36.6 60 16 104/65 100 Room Air 04/21/17 12:04 104/65 Notes Mental Status: alert / awake / arousable, participated in evaluation Pt Amnestic to Procedure: Yes Nausea / Vomiting: adequately controlled Pain: adequately controlled Airway Patency, RR, SpO2: stable & adequate BP & HR: stable & adequate Hydration State: stable & adequate Anesthetic Complications: no major complications apparent
[2017-04-21 19:11] VITALS: BP 115/69; PULSE 69; TEMP 36.7; Ht 182.9 cm; Wt 100.9 kg
[2017-04-21 19:38] VITALS: O2SAT 100
[2017-04-21 21:41] LABS: HEMATOCRIT 25.6 % (42-52)
[2017-04-21] MEDS: CARVEDILOL 12.5 MG TAB PO SCH (21:50)
[2017-04-21 22:06] LABS: CKMB/CK RATIO 3.1 (0-3.0)
[2017-04-21 22:47] VITALS: O2SAT 96
[2017-04-21 23:47] VITALS: BP 114/65; PULSE 73; TEMP 36.9; O2SAT 99
[2017-04-21] MEDS: SENSIPAR~ORDER AWAITING ACTION SCH (23:53)
[2017-04-22] VITALS (7 sets, daily range): BP systolic 89–125; BP diastolic 38–77; PULSE 57–68; TEMP 36.5–37; O2SAT 97–100
[2017-04-22] MEDS: PANTOprazole INJ 40 MG in DEXTROSE 5% 100ML IV SCH ×4 (03:38→19:13)
[2017-04-22 04:30] LABS: HEMATOCRIT 26.1 % (42-52)
[2017-04-22 05:06] LABS: BUN/CREATININE RATIO 4.3 (10-20); CALCIUM 8.3 mg/dl (8.5-10.1); CKMB/CK RATIO 3.9 (0-3.0); CREATININE 7.4 mg/dl (0.60-1.40); POTASSIUM 5.1 mmol/L (3.5-5.1)
[2017-04-22] MEDS: SENSIPAR~ORDER AWAITING ACTION SCH ×2 (08:00→15:40)
[2017-04-22] MEDS: CALCIUM ACETATE 667MG GELCAP PO SCH ×3 (08:00→17:03)
--- NOTE | 2017-04-22 08:33 | Anesthesiology Progress Note ---
Anesthesia Post Op Note Date & Time Apr 22, 2017 at 08:33 Vital Signs Pain Intensity: 0.0 Vital Signs Past 12 Hours Date Time Temp Pulse Resp B/P (MAP) Pulse Ox O2 Delivery O2 Flow Rate FiO2 04/22/17 08:22 Room Air 04/22/17 07:50 36.7 65 16 125/77 (93) 98 Room Air 04/22/17 04:08 36.7 62 16 99/65 (76) 97 Room Air 04/22/17 04:00 Room Air 04/22/17 00:00 Room Air 04/21/17 23:47 36.9 73 18 114/65 (81) 99 04/21/17 22:47 96 Room Air Notes Mental Status: alert / awake / arousable Pt Amnestic to Procedure: No Nausea / Vomiting: adequately controlled Pain: adequately controlled Airway Patency, RR, SpO2: stable & adequate BP & HR: stable & adequate Hydration State: stable & adequate
[2017-04-22] MEDS: CARVEDILOL 12.5 MG TAB PO SCH ×2 (08:51→21:17)
--- NOTE | 2017-04-22 09:19 | Gastroenterology Progress Note ---
Progress Note Date of Service: Apr 22, 2017 Subjective Pt evaluation today including: conversation w/ patient, physical exam, chart review, lab review, review of studies, review of inpatient medication list Patient reports feeling well today status post EGD last evening with Dr. Chaves with finding of duodenal ulcer and visible vessel requiring hemostasis. No further episodes of any bleeding or vomiting. H&H has stabilized and was noted to be 8.4 today. Patient remains on a Protonix drip at 8 mg/hr. Tolerating clear liquids. No other complaints. Review of Systems Constitutional: No problem reported Respiratory: No problem reported Cardiac: No problem reported Abdomen: + see HPI Medications Current Inpatient Medications Medications (Trade) Dose Ordered Sig/Inés Route Start Time Stop Time Status Last Admin Dose Admin Acetaminophen (Tylenol Tab) 650 mg Q4H PRN PO 04/21/17 15:00 05/21/17 14:59 Ondansetron HCl (Zofran Inj) 4 mg Q6H PRN IV 04/21/17 15:00 05/21/17 14:59 Calcium Acetate (Phoslo Cap) 2,001 mg TIDM PO 04/22/17 08:00 05/22/17 07:59 Carvedilol (Coreg Tab) 12.5 mg BID PO 04/21/17 21:00 05/21/17 20:59 04/22/17 08:51 12.5 MG Miscellaneous Information (Order Awaiting Action) 1 ea QS N/A 04/22/17 00:00 05/22/17 00:00 Pantoprazole Sodium 40 mg/ Dextrose 100 ml @ 20 mls/hr Q5H IV 04/21/17 17:45 05/21/17 17:44 04/22/17 08:51 20 MLS/HR Objective Vital Signs Date Time Temp Pulse Resp B/P (MAP) Pulse Ox O2 Delivery O2 Flow Rate FiO2 04/22/17 08:22 Room Air 04/22/17 07:50 36.7 65 16 125/77 (93) 98 Room Air 04/22/17 04:08 36.7 62 16 99/65 (76) 97 Room Air 04/22/17 04:00 Room Air 04/22/17 00:00 Room Air 04/21/17 23:47 36.9 73 18 114/65 (81) 99 04/21/17 22:47 96 Room Air 04/21/17 19:38 100 Room Air 2.0 04/21/17 19:11 36.7 69 20 115/69 04/21/17 17:50 36.9 67 16 118/70 100 Nasal Cannula 2 04/21/17 17:40 66 15 119/71 100 Oxymask 6 04/21/17 17:30 71 15 119/66 100 Oxymask 10 04/21/17 17:20 36.2 72 19 115/75 100 Oxymask 10 04/21/17 16:15 67 14 99 04/21/17 16:01 124/76 04/21/17 16:00 70 22 100 04/21/17 15:45 65 14 98 04/21/17 15:30 66 18 100 04/21/17 15:25 72 18 100 04/21/17 15:10 69 14 93 04/21/17 15:01 123/73 04/21/17 14:55 65 15 96 04/21/17 14:40 61 12 100 04/21/17 14:25 60 6 99 04/21/17 14:20 62 14 100 04/21/17 14:01 109/73 04/21/17 13:59 110/72 04/21/17 13:50 64 12 100 04/21/17 13:45 62 12 110/72 100 04/21/17 13:30 66 15 99 04/21/17 13:15 64 14 95 04/21/17 13:00 76 20 100 04/21/17 12:45 59 17 98 04/21/17 12:42 60 17 100/65 99 Room Air 04/21/17 12:31 97/62 04/21/17 12:30 60 12 100 04/21/17 12:22 94/57 04/21/17 12:15 58 19 100 04/21/17 12:11 60 04/21/17 12:08 36.6 60 16 104/65 100 Room Air 04/21/17 12:04 104/65 Physical Exam General Appearance: no apparent distress Eyes: EOMI Respiratory/Chest: lungs clear, normal breath sounds, no respiratory distress Cardiovascular: regular rate, rhythm Abdomen: normal bowel sounds, non tender, soft Extremities: no pedal edema Neurologic/Psych: alert, normal mood/affect, oriented x 3 Skin: warm/dry Laboratory Results Last 24 Hours Test 04/21/17 12:07 04/21/17 15:15 04/21/17 21:16 04/22/17 04:03 White Blood Count 9.68 K/uL Red Blood Count 3.02 M/uL Hemoglobin 10.0 g/dL 9.7 g/dL 8.5 g/dL 8.4 g/dL Hematocrit 30.5 % 29.3 % 25.6 % 26.1 % Mean Corpuscular Volume 101.0 fL Mean Corpuscular Hemoglobin 33.1 pg Mean Corpuscular Hemoglobin Concent 32.8 g/dl Platelet Count 109 K/uL Mean Platelet Volume 10.5 fL Neutrophils (%) (Auto) 78.5 % Lymphocytes (%) (Auto) 11.5 % Monocytes (%) (Auto) 5.8 % Eosinophils (%) (Auto) 3.6 % Basophils (%) (Auto) 0.3 % Neutrophils # (Auto) 7.60 K/uL Lymphocytes # (Auto) 1.11 K/uL Monocytes # (Auto) 0.56 K/uL Eosinophils # (Auto) 0.35 K/uL Basophils # (Auto) 0.03 K/uL RDW Standard Deviation 53.0 fL RDW Coefficient of Variation 14.6 % Immature Granulocyte % (Auto) 0.3 % Immature Granulocyte # (Auto) 0.03 K/uL Prothrombin Time 12.2 SECONDS Prothromb Time International Ratio 1.1 Activated Partial Thromboplast Time 23.9 SECONDS Partial Thromboplastin Ratio 0.9 Sodium Level 140 mmol/L 141 mmol/L Potassium Level 4.7 mmol/L 5.1 mmol/L Chloride Level 102 mmol/L 104 mmol/L Carbon Dioxide Level 33 mmol/L 34 mmol/L Anion Gap 5.0 mmol/L 3.0 mmol/L Blood Urea Nitrogen 21 mg/dl 32 mg/dl Creatinine 5.70 mg/dl 7.40 mg/dl Est Creatinine Clear Calc Drug Dose 18.5 ml/min 14.3 ml/min Estimated GFR () 11.9 8.7 Estimated GFR (Non- 10.3 7.5 BUN/Creatinine Ratio 3.6 4.3 Random Glucose 117 mg/dl 110 mg/dl Calcium Level 8.6 mg/dl 8.3 mg/dl Total Bilirubin 0.7 mg/dl Direct Bilirubin 0.2 mg/dl Aspartate Amino Transf (AST/SGOT) 12 U/L Alanine Aminotransferase (ALT/SGPT) 15 U/L Alkaline Phosphatase 77 U/L Total Creatine Kinase 43 U/L 39 U/L 33 U/L Creatine Kinase MB 0.9 ng/ml 1.2 ng/ml 1.3 ng/ml Creatine Kinase MB Ratio 2.1 3.1 3.9 Troponin I 0.314 ng/ml 0.292 ng/ml 0.282 ng/ml Total Protein 6.6 gm/dl Albumin 3.2 gm/dl Lipase 195 U/L Assessment and Plan Patient is a 56 year old male with ESRD on dialysis brought to the ER via EMS with syncope, bloody stools, nausea with vomiting and hematemesis noted to have a duodenal ulcer with visible vessel requiring hemostasis. 1. Clear liquid diet today. Can advance diet tomorrow as tolerated. 2. Continue Protonix ggt at 8 mg/hr for a total of 72 hours. 3. Await pathology as pending. 4. Supportive measures per primary team. Agree with LISSET Bruce as above Abd: Soft, NT, ND, +BS Doing much better today Tolerating PO intake Continue Protonix gtt for 72 hours
[2017-04-22] MEDS ORDERED: EPOETIN ALFA 10,000 UNITS/ML VIAL IV. ONE (10:15)
--- NOTE | 2017-04-22 10:44 | NEPHROLOGY PROGRESS NOTE ---
DATE: 04/22/2017 SUBJECTIVE: Mr. Carbajal says that he is feeling dramatically better today. Yesterday, shortly after admission, he underwent an EGD by Dr. Rodolfo Chaves. The findings included a nonobstructing Schatzki's ring at the gastroesophageal junction. The stomach appeared normal, although biopsies were taken for histology. One oozing crater duodenal ulcer with a visible vessel was found in the duodenal bulb. The lesion was 10 mm in largest diameter. The area was injected with 2 mL of 1:10,000 epinephrine for hemostasis. Fulguration was then done to ____ remaining base of the lesion. Mr. Carbajal was placed on a Protonix drip. He feels dramatically better. He has had no abdominal pain and he has no nausea or vomiting. He has passed a small amount of dark blood per rectum, but is not having diarrhea. He denies lightheadedness or dizziness. He has no symptoms of uremia or volume overload and in general feels relatively well. OBJECTIVE: GENERAL: On physical exam when seen by me, he appeared perfectly comfortable. He was lying in bed. VITAL SIGNS: He is afebrile (36.7), his blood pressure 125/77, his pulse is 65 and regular, respiratory rate is 16, and his pulse ox 98% on room air. SKIN: Shows normal skin turgor. He has scars from prior surgical procedures including a left antecubital scar from the creation of his AV fistula, which is grossly dilated in the left upper arm. He has multiple dialysis needle tract leyva over the fistula. His skin turgor is normal. In general, he appears a bit pale. LYMPHATICS: Show no palpable lymphadenopathy. HEAD: Normal. EYES: Grossly normal. The ocular fundi were not examined. EARS, NOSE, MOUTH AND THROAT: Normal. His oral mucous membranes are moist. NECK: Supple. He has no jugular venous distention, carotid bruit or thyromegaly. He does have a murmur transmitted from a murmur at the base of his heart. CHEST: Clear to auscultation. He has a murmur transmitted into the left upper chest area from his left upper arm AV fistula. CARDIAC: Shows a regular rhythm. S1 and S2 are normal. He has a grade 2-3/6 systolic murmur at the base radiating toward the neck. No diastolic murmurs are heard. He has no gallop sounds. ABDOMEN: Nontender even in the right upper quadrant. There is no obvious organomegaly or mass. Bowel sounds are normal. EXTREMITIES: Show no cyanosis, clubbing or peripheral edema. He has a left upper arm AV fistula. NEUROLOGIC: Unremarkable. PERTINENT LABORATORY WORK: From today shows a hemoglobin of 8.4 and a hematocrit of 26.1. His sodium is 141 mmol/L, potassium 5.1 mmol/L, chloride is 104 mmol/L, and CO2 content 34 mmol/L. His BUN is 32 and his creatinine 7.40. A random blood sugar is 110 with an IV running. His total CK is 33 with a CK-MB of 1.3. His troponin is stable at 0.282. ASSESSMENT: Mr. Carbajal was found to be bleeding from a duodenal ulcer. The ulcer was cauterized. Biopsies were taken. RECOMMENDATIONS: Would try to avoid transfusion. We will treat his anemia with IV iron and erythropoietin. However, if his hemoglobin drops below 8, he may require transfusion. If so, as previously noted it should be done with leukocyte poor blood. Nonetheless, because of an impending transplant status, I would try to avoid that as much as possible. Continue with his Protonix drip. We would check a stool for Helicobacter pylori antigen. We will schedule for hemodialysis tomorrow. We will give him IV iron with his dialysis treatment as well as erythropoietin. Would check his serum ferritin to recheck his iron stores. He did not have a recent serum ferritin, although his recent transferrin saturation was 34%.
[2017-04-22 11:52] LABS: HEMATOCRIT 24.5 % (42-52)
[2017-04-23] VITALS (24 sets, daily range): BP systolic 92–168; BP diastolic 53–83; PULSE 57–86; TEMP 36.4–36.9; O2SAT 95–100
[2017-04-23] MEDS: PANTOprazole INJ 40 MG in DEXTROSE 5% 100ML IV SCH ×5 (00:27→19:56)
--- NOTE | 2017-04-23 04:58 | Progress Note ---
Subjective Date of Service: late entry for visit on Apr 22, 2017. Subjective Pt evaluation today including: conversation w/ patient, conversation w/ family (multiple at bedside), physical exam, chart review, lab review, review of studies (EGD), conversation w/ business intelligence consultant (nephrology), review of inpatient medication list Pain: no abd pain PO Intake: tolerating clears tele with 3-beat run VT this afternoon - no symptoms he otherwise denies abd pain, nausea, emesis, any sign of recurrent GI bleeding Review of Systems Respiratory: No shortness of breath Cardiac: No chest pain, No orthopnea Abdomen: No pain Objective Vital Signs Date Time Temp Pulse Resp B/P (MAP) Pulse Ox O2 Delivery O2 Flow Rate FiO2 04/23/17 04:00 Room Air 04/23/17 00:00 Room Air 04/22/17 23:57 36.7 65 20 91/58 (69) 97 Room Air 04/22/17 20:10 Room Air 04/22/17 19:04 37.0 68 18 107/71 (83) 97 Room Air 04/22/17 16:23 36.6 61 20 97/62 (74) 100 Room Air 04/22/17 16:10 Room Air 04/22/17 12:00 Room Air 04/22/17 11:36 36.5 57 16 99/63 (75) 100 Room Air 04/22/17 08:22 Room Air 04/22/17 07:50 36.7 65 16 125/77 (93) 98 Room Air Physical Exam General Appearance: no apparent distress ENT: pharynx normal Neck: no JVD Respiratory/Chest: lungs clear, no respiratory distress, no accessory muscle use Cardiovascular: regular rate, rhythm, no gallop, + systolic murmur (2/6 heard all over chest) Abdomen: normal bowel sounds, non tender, soft, no organomegaly Extremities: no pedal edema Laboratory Results Last 24 Hours Test 04/22/17 11:19 04/23/17 04:44 Hemoglobin 8.1 g/dL Hematocrit 24.5 % Ferritin 917.5 ng/ml Assessment and Plan 56yo male: 1. upper GI bleeding 2nd to duodenal ulcer s/p EGD on day of admission with successful treatment of the ulcer by Dr. Chaves - reinier PPI drip x 3 days, then oral PPI indefinitely. has had multiple ulcers in the past - reason?? denies etoh, NSAIDs, etc. 2. acute blood loss anemia 2nd to #1 - repeat CBC in am for stability. If he needed PRBCs these would be given on HD. 3. chronic anemia 2nd to ESRD 4. ESRD on HD M/W/F - HD tomorrow, care of Dr. Becerra. 5. chronic systolic CHF 2nd to dilated cardiomyopathy - compensated; cont BB. 6. DVT proph - SCDs, chemical means contraindicated. 7. +troponin - likely myocardial demand ischemia in setting of #1 VS due to ESRD. No symptoms to suggest true ACS. 8. FEN - defer diet management to GI. Continued [facility] stay due to: inadequate po fluid intake, multiple IV medications needed Discharge planning: home
[2017-04-23 05:33] LABS: HEMATOCRIT 24.3 % (42-52); MEAN CELL VOLUME 102.1 fL (80-100); MEAN CORPUSCULAR HEMOGLOBIN 33.6 pg (25-34); MEAN CORPUSCULAR HGB CONC 32.9 g/dl (32-36); RED BLOOD COUNT 2.38 M/uL (4.7-6.1); WHITE BLOOD COUNT 5.64 K/uL (4.8-10.8)
[2017-04-23 05:43] LABS: PLATELET COUNT 87 K/uL (130-400)
[2017-04-23 05:55] LABS: PLT ESTIMATE DECREASED
[2017-04-23] MEDS ORDERED: EPOETIN ALFA INJ 15,000 UNITS in SYRINGE 0 ML IV. SCH (06:00)
[2017-04-23] MEDS ORDERED: IRON SUCROSE INJ 100 MG in SYRINGE 0 ML IV SCH (06:00)
[2017-04-23] MEDS ORDERED: SODIUM CHLORIDE 0.9% 1000ML 1,000 ML IV PRN (06:00)
[2017-04-23 06:12] LABS: BUN/CREATININE RATIO 4.6 (10-20); CALCIUM 8.3 mg/dl (8.5-10.1); POTASSIUM 5.2 mmol/L (3.5-5.1)
[2017-04-23] MEDS: CARVEDILOL 12.5 MG TAB PO SCH ×2 (07:51→20:46)
[2017-04-23] MEDS: CALCIUM ACETATE 667MG GELCAP PO SCH ×3 (07:51→18:32)
[2017-04-23] MEDS: SENSIPAR~ORDER AWAITING ACTION SCH ×4 (08:00→23:42)
--- NOTE | 2017-04-23 09:25 | Gastroenterology Progress Note ---
Progress Note Date of Service: Apr 23, 2017 Subjective Pt evaluation today including: conversation w/ patient, physical exam, lab review, review of studies Patient is a 56 yo male GI is following for a bleeding duodenal ulcer. He underwent an EGD on 04/21 that indicated a duodenal ulcer with visible vessel requiring hemostasis. He denies abdominal pain. He denies nausea or vomiting. He reports he is greatly improved. His H/H is stable at 8.0/24.3. He is presently on a Protonix drip at 8 mg/hr. He tolerated a clear liquid diet well. He offers no further complaints. Review of Systems Constitutional: No fever, No chills Eyes: No problem reported Respiratory: No cough, No shortness of breath Cardiac: No chest pain Abdomen: No pain, No nausea, No vomiting, No GI bleeding Musculoskeletal: No joint pain Psych: No problem reported Skin: No problem reported Medications Current Inpatient Medications Medications (Trade) Dose Ordered Sig/Inés Route Start Time Stop Time Status Last Admin Dose Admin Acetaminophen (Tylenol Tab) 650 mg Q4H PRN PO 04/21/17 15:00 05/21/17 14:59 Ondansetron HCl (Zofran Inj) 4 mg Q6H PRN IV 04/21/17 15:00 05/21/17 14:59 Calcium Acetate (Phoslo Cap) 2,001 mg TIDM PO 04/22/17 08:00 05/22/17 07:59 04/23/17 07:51 2,001 MG Carvedilol (Coreg Tab) 12.5 mg BID PO 04/21/17 21:00 05/21/17 20:59 04/23/17 07:51 12.5 MG Miscellaneous Information (Order Awaiting Action) 1 ea QS N/A 04/22/17 00:00 05/22/17 00:00 Pantoprazole Sodium 40 mg/ Dextrose 100 ml @ 20 mls/hr Q5H IV 04/21/17 17:45 05/21/17 17:44 04/23/17 05:29 20 MLS/HR Iron Sucrose 100 mg/Syringe 5 ml @ 1 mls/min TODAY@0600 IV 04/23/17 06:00 04/23/17 23:59 Sodium Chloride 1,000 ml @ 0 mls/hr Q0M PRN IV 04/23/17 06:00 04/23/17 23:59 Heparin Sodium (Porcine) (No Heparin In Dialysis) 1 ea TODAY@0600 N/A 04/23/17 06:00 04/23/17 23:59 Epoetin Andrew 34723 units/ Syringe 0.75 ml @ 1 mls/min TODAY@0600 IV. 04/23/17 06:00 04/23/17 23:59 Objective Vital Signs Date Time Temp Pulse Resp B/P (MAP) Pulse Ox O2 Delivery O2 Flow Rate FiO2 04/23/17 08:26 Room Air 04/23/17 08:00 Room Air 04/23/17 07:57 36.5 61 16 98/60 (73) 98 04/23/17 05:11 36.6 58 20 106/67 (80) 98 Room Air 04/23/17 04:00 Room Air 04/23/17 00:00 Room Air 04/22/17 23:57 36.7 65 20 91/58 (69) 97 Room Air 04/22/17 20:10 Room Air 04/22/17 19:04 37.0 68 18 107/71 (83) 97 Room Air 04/22/17 16:23 36.6 61 20 97/62 (74) 100 Room Air 04/22/17 16:10 Room Air 04/22/17 12:00 Room Air 04/22/17 11:36 36.5 57 16 99/63 (75) 100 Room Air Physical Exam General Appearance: WD/WN, no apparent distress Eyes: normal inspection, PERRL Respiratory/Chest: lungs clear, normal breath sounds Cardiovascular: regular rate, rhythm Abdomen: normal bowel sounds, non tender, soft Extremities: non-tender Neurologic/Psych: alert, oriented x 3 Skin: normal color Laboratory Results Last 24 Hours Test 04/22/17 11:19 04/23/17 05:19 Hemoglobin 8.1 g/dL 8.0 g/dL Hematocrit 24.5 % 24.3 % Ferritin 917.5 ng/ml White Blood Count 5.64 K/uL Red Blood Count 2.38 M/uL Mean Corpuscular Volume 102.1 fL Mean Corpuscular Hemoglobin 33.6 pg Mean Corpuscular Hemoglobin Concent 32.9 g/dl RDW Standard Deviation 55.5 fL RDW Coefficient of Variation 15.3 % Platelet Count 87 K/uL Mean Platelet Volume 10.0 fL Platelet Estimate DECREASED Sodium Level 140 mmol/L Potassium Level 5.2 mmol/L Chloride Level 103 mmol/L Carbon Dioxide Level 31 mmol/L Anion Gap 6.0 mmol/L Blood Urea Nitrogen 46 mg/dl Creatinine 10.00 mg/dl Est Creatinine Clear Calc Drug Dose 10.6 ml/min Estimated GFR () 6.0 Estimated GFR (Non- 5.2 BUN/Creatinine Ratio 4.6 Random Glucose 96 mg/dl Calcium Level 8.3 mg/dl Assessment and Plan Patient is a 56 yo male who underwent an EGD on 04/22 that indicated a duodenal ulcer with a visible vessel requiring hemostasis. He is feeling well at present. 1) Continue Protonix drip at 8 mg/hr for a total of 72 hours. Upon completion of 72 hours of IV treatment, patient can be transitioned to po Protonix 40 mg BID. 2) Can proceed with diet as tolerated. 3) Await pathology results. 4) Supportive care per primary team. Thank you for allowing us to participate in the care of this patient. If you should have any further questions or concerns, do not hesitate to contact us. Agree with ILYA Mendoza as above Abd: Soft, NT, ND, +BS Continue Protonix gtt
--- NOTE | 2017-04-23 10:46 | NEPHROLOGY PROGRESS NOTE ---
DATE: 04/23/2017 DATE: 04/23/2017 SUBJECTIVE: Mr. Carbajal continues to feel quite well. He denies having any abdominal pain. His appetite has returned to normal. He has had no hematemesis over the course of the past 24 hours. He denies having any bright red blood in his stools. He did have 2 bowel movements this morning. He has no symptoms of uremia and no symptoms of volume overload. He had been on a communications equipment operator and 3 apparent premature ventricular contractions occurred in sequence. He had no symptoms. He does have a history of cardiac enlargement and a low ejection fraction. However, he has no coronary disease. He has some degree of pulmonary hypertension, the degree to which is questionable and, at least to some extent is related to the very large AV fistula that he has in his left arm. OBJECTIVE: GENERAL: On physical examination at the current time, Mr. Carbajal appears relatively healthy and well and not at all chronically ill. VITAL SIGNS: His blood pressure today is 98/60, his pulse 61 and regular, respiratory rate 16, his pulse ox 98% on room air. He is afebrile. SKIN: Shows normal skin turgor. He has no rash or infiltrative skin disease. He has a scar in the left antecubital fossa from the creation of his left upper arm AV fistula which is significantly dilated. He has multiple dialysis needle track leyva over the fistula. LYMPHATICS: Show no palpable lymphadenopathy. HEAD: Normal. EYES: Grossly normal. There is no conjunctival icterus. The conjunctivae however do appear somewhat pale. The ocular fundi were not examined. EARS, NOSE, MOUTH AND THROAT: All unremarkable. His oral mucous membranes are moist. NECK: Supple. He has no jugular venous distention, carotid bruit or thyromegaly. CHEST: Clear to auscultation. CARDIAC EXAMINATION: Shows a regular rhythm. S1 and S2 are normal. He has a grade 2/6 systolic murmur at the base radiating toward the neck. He also has a murmur radiating into his left chest from his left upper arm AV fistula. When the fistula is occluded the murmur disappears. ABDOMEN: Nontender. There is no obvious organomegaly or mass. He has no CVA tenderness. There is no peripheral edema. LABORATORY DATA: Pertinent laboratory work from today shows a white count of 5640. His hemoglobin is 8.0. His hematocrit 24.3. Red cell indices are slightly macrocytic. His platelet count was 87,000. Clinical chemistries from today show a sodium of 140 mmol/L, potassium 5.2 mmol/L, chloride is 103 mmol/L, and CO2 content 31 mmol/L. His BUN is 46, his creatinine 10.00. A random blood sugar was 96. His urine calcium 8.3. His ferritin was 917.5. ASSESSMENT: Mr. Carbajal appears to be stable after his episode of gastrointestinal bleeding from a duodenal ulcer. The ulcer was treated with cautery. He is asymptomatic. PLAN: Hemodialysis today as ordered. Assuming he remains stable after his full 3 days of the Protonix drip he can be discharged but should be discharged on Protonix 40 mg b.i.d. Otherwise, he should stay on all of his usual medications. He will receive dialysis at the [facility] in [place]. If he is discharged, we will notify them that he will be returning for his regular dialysis schedule on Wednesday. We will continue to try to avoid blood. He will be getting erythropoietin in the dialysis unit.
[2017-04-23] MEDS: ONDANSETRON INJ 2 MG/ML 2 ML VIAL IV PRN (13:00)
[2017-04-24] VITALS (7 sets, daily range): BP systolic 88–106; BP diastolic 60–70; PULSE 59–68; TEMP 36.6–36.8; O2SAT 95–100
[2017-04-24] MEDS: PANTOprazole INJ 40 MG in DEXTROSE 5% 100ML IV SCH ×3 (00:17→09:56)
--- NOTE | 2017-04-24 06:39 | Progress Note ---
Subjective Date of Service: late entry for visit Apr 23, 2017. Subjective Pt evaluation today including: conversation w/ patient, conversation w/ family (), physical exam, chart review, lab review Pain: following lunch today had mild abd pain, lasted 20-30 minutes, then resolve PO Intake: tolerating diet no issues overnight tele stable feels good except for 1 abdominal pain episode no nausea or emesis having stool - old melena seen but nothing new remains on PPI drip Review of Systems Respiratory: No shortness of breath Cardiac: No chest pain Abdomen: + see HPI, + pain, No GI bleeding Objective Vital Signs Date Time Temp Pulse Resp B/P (MAP) Pulse Ox O2 Delivery O2 Flow Rate FiO2 04/24/17 04:27 36.8 61 18 103/65 (78) 95 Room Air 04/24/17 04:00 Room Air 04/24/17 00:00 Room Air 04/23/17 23:17 36.8 65 16 102/64 (77) 97 Room Air 04/23/17 20:20 Room Air 04/23/17 18:47 Room Air 04/23/17 18:41 36.8 60 100/55 (70) 04/23/17 18:33 36.5 69 16 115/72 (86) 100 Room Air 04/23/17 18:00 58 106/62 04/23/17 17:45 60 106/54 04/23/17 17:30 64 105/55 04/23/17 17:15 61 105/55 04/23/17 17:00 60 100/59 04/23/17 16:30 60 99/55 04/23/17 16:15 64 102/55 04/23/17 16:00 63 100/59 04/23/17 15:45 63 99/55 04/23/17 15:30 57 99/55 04/23/17 15:15 58 100/55 04/23/17 15:00 58 102/59 04/23/17 14:45 62 101/53 04/23/17 14:30 63 99/55 04/23/17 14:15 62 92/54 04/23/17 14:04 36.7 63 100/57 (71) 04/23/17 12:34 Room Air 04/23/17 12:19 36.6 59 16 98/60 (73) 99 04/23/17 12:17 36.4 64 16 99/63 (75) 95 04/23/17 08:26 Room Air 04/23/17 08:00 Room Air 04/23/17 07:57 36.5 61 16 98/60 (73) 98 Physical Exam General Appearance: no apparent distress ENT: pharynx normal Neck: no JVD Respiratory/Chest: lungs clear, no respiratory distress, no accessory muscle use Cardiovascular: regular rate, rhythm, no gallop, + systolic murmur (2/6 MICHAEL RUSB/LUSB) Abdomen: normal bowel sounds, non tender, soft, no organomegaly Extremities: no pedal edema, + pertinent finding (LUE AV fistula ) Laboratory Results Last 24 Hours Test 04/24/17 06:31 Assessment and Plan 56yo male: 1. upper GI bleeding 2nd to duodenal ulcer s/p EGD on day of admission with successful treatment of the ulcer by Dr. Chaves - cont PPI drip x 3 days, then oral PPI indefinitely. PPI drip will finish tomorrow. has had multiple ulcers in the past - reason?? gastrin level years ago was normal. denies etoh, NSAIDs, etc. CBC in am. 2. acute blood loss anemia 2nd to #1 - repeat CBC in am for stability. H/H today acceptable. If he needed PRBCs these would be given on HD. 3. chronic anemia 2nd to ESRD - check b12/folate to be complete 4. ESRD on HD M/W/F - HD today, care of Dr. Becerra. 5. chronic systolic CHF 2nd to dilated cardiomyopathy - compensated; cont BB. 6. DVT proph - SCDs, chemical means contraindicated. 7. +troponin - likely myocardial demand ischemia in setting of #1 VS due to ESRD. No symptoms to suggest true ACS. 8. FEN - diet has been advanced, lytes stable updated anticipate d/c tomorrow if stable Continued [facility] stay due to: multiple IV medications needed Discharge planning: home
[2017-04-24 07:21] LABS: HEMATOCRIT 25.7 % (42-52); MEAN CELL VOLUME 100.8 fL (80-100); MEAN CORPUSCULAR HEMOGLOBIN 34.1 pg (25-34); MEAN CORPUSCULAR HGB CONC 33.9 g/dl (32-36); RED BLOOD COUNT 2.55 M/uL (4.7-6.1); WHITE BLOOD COUNT 4.64 K/uL (4.8-10.8)
[2017-04-24 07:55] LABS: MEAN PLATELET VOLUME 10.4 fL (7.4-10.4); PLATELET COUNT 91 K/uL (130-400)
[2017-04-24] MEDS: SENSIPAR~ORDER AWAITING ACTION SCH (08:00)
[2017-04-24] MEDS: CARVEDILOL 12.5 MG TAB PO SCH (08:01)
[2017-04-24] MEDS: CALCIUM ACETATE 667MG GELCAP PO SCH ×2 (08:02→12:00)
[2017-04-24] MEDS: ONDANSETRON INJ 2 MG/ML 2 ML VIAL IV PRN (08:13)
[2017-04-24] MEDS: SUCRALFATE 1 GM/10 ML UDC PO SCH ×2 (09:53→12:30)
--- NOTE | 2017-04-24 11:31 | Nephrology Progress Note ---
Nephrology Progress Note Date of Service Apr 24, 2017. Chief Complaint Follow-up for end-stage renal disease on hemodialysis. Subjective Gentleman seen and examined in his room this morning. Has been otherwise feeling well, denies any dizziness lightheadedness. No further episode of bright red blood per rectum or melena. hemoglobin remained stable. had dialysis yesterday as regular schedule. Tolerating regular diet and hoping to get discharged soon. Still on IV Protonix. Review of Systems A complete review of systems was performed. Pertinent positives are noted above. All other systems are negative. Vital Signs Last 8 Hrs Date Time Temp Pulse Resp B/P (MAP) Pulse Ox O2 Delivery O2 Flow Rate FiO2 04/24/17 09:00 36.8 68 18 106/65 (79) 100 Room Air 04/24/17 08:00 97 Room Air 04/24/17 06:57 36.8 64 18 88/60 (69) 97 Room Air 04/24/17 04:27 36.8 61 18 103/65 (78) 95 Room Air 04/24/17 04:00 Room Air Last Recorded Weight Weight (Kilograms): 100.900 Physical Exam GENERAL: Middle-aged male, AAA x 3, pleasant, healthy-appearing, not in any distress. NECK: Supple, no JVD. RESPIRATORY: Normal breathing efforts, no accessory muscle use, clear to auscultation bilaterally, no wheezes or rales. CARDIOVASCULAR: S1, S2 normal, rate rhythm regular. EXTREMITY: No lower extremity edema NEURO: speech fluent. PSYCHIATRY: Normal mood and judgment Family History Diabetes mellitus FH: heart disease Kidney disease Social History Smoking Status: Never smoker Alcohol Use: none Drug Use: none Marital Status: Occupation: employed Laboratory Results Past 24 Hours 04/24/17 07:06 Test 04/24/17 07:06 Red Blood Count 2.55 M/uL (4.7-6.1) Mean Corpuscular Volume 100.8 fL (80-100) Mean Corpuscular Hemoglobin 34.1 pg (25-34) Mean Corpuscular Hemoglobin Concent 33.9 g/dl (32-36) RDW Standard Deviation 54.3 fL (36.4-46.3) RDW Coefficient of Variation 15.1 % (11.5-14.5) Mean Platelet Volume 10.4 fL (7.4-10.4) Vitamin B12 Level 956 pg/mL (211-911) Folate 7.44 ng/mL (>5.38) Allergies Coded Allergies: No Known Allergies (Verified , 04/21/17) Medications Current Inpatient Medications Medications (Trade) Dose Ordered Sig/Inés Route Start Time Stop Time Status Last Admin Dose Admin Acetaminophen (Tylenol Tab) 650 mg Q4H PRN PO 04/21/17 15:00 05/21/17 14:59 Ondansetron HCl (Zofran Inj) 4 mg Q6H PRN IV 04/21/17 15:00 05/21/17 14:59 04/24/17 08:13 4 MG Calcium Acetate (Phoslo Cap) 2,001 mg TIDM PO 04/22/17 08:00 05/22/17 07:59 04/24/17 08:02 2,001 MG Carvedilol (Coreg Tab) 12.5 mg BID PO 04/21/17 21:00 05/21/17 20:59 04/23/17 20:46 12.5 MG Miscellaneous Information (Order Awaiting Action) 1 ea QS N/A 04/22/17 00:00 05/22/17 00:00 Pantoprazole Sodium 40 mg/ Dextrose 100 ml @ 20 mls/hr Q5H IV 04/21/17 17:45 05/21/17 17:44 04/24/17 09:56 20 MLS/HR Sucralfate (Carafate Susp) 1 gm QID PO 04/24/17 09:00 05/24/17 08:59 04/24/17 09:53 1 GM Impression (1) End stage renal disease (2) GI bleed (3) Hypertension (4) Secondary hyperparathyroidism of renal origin (5) Anemia Ambika is a 56-year-old male with end-stage renal disease currently on hemodialysis Wednesday, Wednesday, Wednesday. Admitted with them anemia secondary to GI bleeding. Had EGD, currently no active bleeding,on PPI. Did not require blood transfusion. Hemoglobin remained stable, 8.7 this morning. Patient is active on transplant list. Recommendations --Currently blood pressure, volume status and electrolyte acceptable, had dialysis yesterday as regular schedule. Next dialysis Wednesday. --Hemoglobin remained stable, on IV drip PPI, did not require blood transfusion. Currently no indication for blood transfusion. Received high dose of Epogen yesterday. With possibility for renal transplant in future, will try to avoid blood transfusion as much as possible. -- Monitor over the weekend however, okay to discharge, has outpatient spot for dialysis at [facility] on Wednesday. --as per GI recommendation, once his 72 hours of IV Protonix drip done, he can be switched to Protonix 40 b.i.d. and discharged home
[2017-04-24] MEDS ORDERED: SUCR1TAB29 PO (13:12)
[2017-04-24] MEDS ORDERED: NXM/40 PO (13:12)
--- NOTE | 2017-04-24 13:22 | Discharge Instructions ---
Discharge Instructions Date of Service Apr 24, 2017. Admission Reason for Admission: Gi Bleed Discharge Discharge Diagnosis / Problem: GI bleeding due to duodenal ulcer Discharge Goals Goal(s): Learn about illness, Diagnostic testing, Therapeutic intervention Activity Recommendations Activity Limitations: as noted below For the next 2-3 days take it easy - no heavy lifting over 20 pounds, no heavy exertional yard work or household work, no going to the gym, etc. . Instructions / Follow-Up Instructions / Follow-Up From Dr. Burns - 1. For your duodenal ulcer - * take nexium 40mg twice daily starting TONIGHT * take carafate (sulcrafate) 4 times a day for 10 days; it is best to take this medication about 30 minutes prior to meals * see Dr. Chaves in 1 month * have Dr. Becerra or his PA check a blood count next week to ensure your blood counts are stable 2. Diet - * for the rest of today I would recommend a "full liquid diet" - this includes ALL liquids as well as milk products (would avoid high-fat ice cream) and cream- based soups * tomorrow you can gradually introduce soft, bland foods into your diet (boiled chicken, toast, applesauce, etc) * for the next 7-10 day really limit your consumption of all caffeinated beverages (coffee, tea, soda) and alcohol; avoid chocolate as well 3. And, of course - especially in light of your kidney disease - no aspirin, motrin, etc 4. Return to [facility] if you have any of the following - * vomiting of blood or coffee-ground like material (dark, black material) * dizziness, lightheadedness, etc * tarry, black stools * any concern you are bleeding again 5. For the next 1-3 days you may have some modestly dark stools from the OLD blood but this should resolve by early this week. 6. Resume your dialysis on Wednesday as scheduled. Current Hospital Diet Patient's current hospital diet: Full Liquid Diet Discharge Diet Recommended Diet: Full Liquid Diet Procedures Procedures Performed: Esophagogastroduodenoscopy (upper endoscopy), biopsy of stomach, injection of duodenal ulcer and cautery with heater probe. Pending Studies Studies pending at discharge: yes List of pending studies: biopsy of stomach Medical Emergencies . Who to Call and When: Medical Emergencies: If at any time you feel your situation is an emergency, please call 911 immediately. . Non-Emergent Contact Non-Emergency issues call your: Primary Care Provider Call Non-Emergent contact if: temperature is above 100.5, your pain is not controlled, your pain is worsening, your pain is unusual for you, your pain is concerning you, you have any medication questions . . "Provider Documentation" section prepared by Nakul Burns. . VTE Core Measure Inpt VTE Proph given/why not?: T.E.D. Stockings, SCD's, Contraindicated
--- NOTE | 2017-04-24 13:29 | GASTROENTEROLOGY PROGRESS NOTE ---
DATE: 04/24/2017 DATE: 04/24/2017 SUBJECTIVE: I had the pleasure of seeing Nura Carbajal at his bedside today. He states that he is feeling better than yesterday. He tolerated some cream of chicken soup today without difficulty following administration of Carafate. He states that he is feeling much better and is requesting to go home. He had a small bowel movement today. He states it had some mild dark stools, though nothing like previous. He denies any further complaints. REVIEW OF SYSTEMS: Negative times 10 system review. PHYSICAL EXAMINATION: VITAL SIGNS: Temp 36.6, pulse 59, respirations 18, blood pressure 106/70, pulse ox 98% on room air. GENERAL EXAMINATION: He is alert, oriented x3. He is cooperative in no acute distress. HEAD: Normocephalic, atraumatic. EYES: Pupils equally round. Extraocular muscles are intact. EARS, NOSE, THROAT: External evaluation of ears and nose are normal. CHEST: Clear to auscultation bilaterally. CARDIOVASCULAR SYSTEM: Regular rate and rhythm. ABDOMEN: Soft, nontender, nondistended. Positive bowel sounds. There is no hepatosplenomegaly or stigmata of chronic liver disease. EXTREMITIES: No clubbing, cyanosis, or edema. LABORATORY STUDIES: From today include an H&H of 8.7 and 25.7 with an MCV of 100.8. IMPRESSION: A 56-year-old male status post acute blood loss anemia secondary to bleeding duodenal ulcer for which he underwent endoscopic therapy. PLAN: Currently, the patient has had no signs of overt GI bleeding. I would recommend continuing on Protonix 40 mg p.o. b.i.d. indefinitely. I would also recommend that he be on Carafate 1 gram p.o. q.i.d. a.c. and at bedtime for 10 days. I discussed the case with Dr. Burns in detail and did recommend the patient follow up visit with us in our office in 6 weeks. I also informed the patient to contact our office with any change in symptoms or worsening symptoms as the next test may be an upper GI with small bowel follow through if he would continue to have pain post meals. I will follow his clinical course and make further recommendations. Once again, thanks for allowing me to participate in the care of this patient. If you have any further questions, please do not hesitate in contacting me. Thanks.
--- NOTE | 2017-04-28 22:40 | Discharge Summary ---
Discharge Summary Date of Service Apr 28, 2017. Discharge Summary Admission Date: Apr 21, 2017 at 15:01 Discharge Date: Apr 24, 2017 Discharge Disposition: Home Principal Diagnosis: upper GI bleeding 2nd to duodenal ulcer Problems/Secondary Diagnoses: 1. ESRD on HD Wed/Wed/Wednesday 2. gastric antrum atrophy and chronic duodenitis - 1999 3. esophageal ulcer & duodenal ulcer - 2005 4. pulmonary HTN 5. chronic systolic CHF 6. HTN 7. hyperlipidemia 8. gout 9. anemia of chronic kidney disease 10. acute blood loss anemia 2nd to upper GI bleeding 11. +troponin, likely 2nd to myocardial demand ischemia in the setting of his acute upper GI bleeding Immunizations: Have You Had Influenza Vaccine: Yes History of Tetanus Vaccine?: Unknown History of Pneumococcal: No History of Hepatitis B Vaccine: No Procedures: 1. EGD - Dr. Rodolfo Chaves - Impression: - Non-obstructing Schatzki ring. - Normal stomach. Biopsied. - One oozing duodenal ulcer with a visible vessel. Injected. Treated with a heater probe. Consultations: gastroenterology - Rodolfo Chaves, DO nephrology - Nakul Becerra MD Medication Reconciliation New Medications: Esomeprazole Magnesium (Nexium) 40 Mg Cap 1 CAP PO BID for 30 Days, #60 CAP 2 Refills Sucralfate (Carafate) 1 Gm Tab 1 TAB PO ACHS for 10 Days, #40 TAB 0 Refills take 30 minutes prior to meals Continued Medications: Allopurinol (Zyloprim *) 300 Mg Tab 300 MG PO QAM, 0 Refills Atorvastatin (Lipitor) 20 Mg Tab 20 MG PO QAM, 0 Refills Calcium Acetate (Phoslo 667 Mg) 667 Mg Cap 3 CAP PO TID Carvedilol (Coreg) 12.5 Mg Tab 1 TAB PO BID Cinacalcet (Sensipar) 30 Mg Tab 30 MG PO HS Referrals At Discharge Follow up Referrals: Inspector Shells Referral - Within a Month with Rodolfo Chaves D.O. Discharge Exam Physical Exam: General Appearance: WD/WN, no apparent distress ENT: pharynx normal Neck: no JVD Respiratory/Chest: lungs clear, no respiratory distress, no accessory muscle use Cardiovascular: regular rate, rhythm, no gallop, normal peripheral pulses, + systolic murmur (2/6 MICHAEL RUSB & LUSB) Abdomen / GI: normal bowel sounds, non tender, soft, no organomegaly Extremities: no pedal edema, + pertinent finding (AV fistula in place, left upper extremity ) Neurologic/Psychiatric: alert, oriented x 3 Hospital Course HISTORY OF PRESENT ILLNESS: The patient is a pleasant 56-year-old male that came to the emergency department by ambulance from dialysis today with an episode of hematemesis and syncope. The patient is currently complaining of severe nausea. He did have abdominal pain. That has dissipated. He also had an episode of fairly bright red blood in his stool 4 days ago. The patient is followed by Dr. Becerra from nephrology. The patient denies any NSAID use given his kidney disease. He also denies any alcohol or nicotine use. The patient reportedly had a normal colonoscopy a few years back. HOSPITAL COURSE: The patient's presenting hemoglobin was 10. In light of his significant upper GI symptoms as well as the syncopal episode from such he underwent urgent EGD by Dr. Rodolfo Chaves on hospital day #1 demonstrating a large bleeding duodenal ulcer that was successfully injected and treated with a heater probe. Following his EGD he was admitted to the telemetry unit and was placed on a PPI drip for 3 days. He remained hemodynamically stable for the remainder of his stay. Hemoglobin drifted down mildly following his EGD but he never required PRBCs. Hemoglobin on day of discharge was 8.7. He was ultimately resumed on a diet and this was advanced slowly as tolerated. He had just mild intermittent abdominal discomfort later in his stay. He was advised to take a PPI twice daily for 30 days followed by once daily dosing indefinitely thereafter. Carafate four times daily for 10 days was also recommended. The exact cause of his severe duodenal ulcer was unclear. A biopsy for h. pylori was pending at time of discharge. During his stay he was seen in consult by nephrology and underwent routine hemodialysis on his normal schedule of Wed/Wed/Wednesday. All other medical problems including his chronic systolic CHF were stable. He had a very mild troponin elevation while here but this was likely due to myocardial demand ischemia. Within 5 days of discharge it is recommended that a repeat CBC be obtained to ensure stability. He may also need a repeat EGD by Dr. Chaves in the future to ensure proper healing. Total Time Spent: Greater than 30 minutes This includes examination of the patient, discharge planning, medication reconciliation, and communication with other providers. Discharge Instructions Please refer to the electronic Patient Visit Report (Discharge Instructions) for additional information. Follow-Up 1. regularly scheduled hemodialysis on 04/26/[address] Becerra, scout leaser, within [address] Chaves, gastroenterology, within 1 month Additional Copies To Rodolfo Chaves D.O.; Nakul Becerra M.D.
== END 2017-04-24 15:48 | disposition home or self-care (01) | DRG 326 ==
LOC: EDBD 12:00 → C.EDB 12:01 → C.MED 15:01 → EDBEDREQ 15:26 → ENRESERV 15:53
PROVIDERS: ADMIT Hospitalist; ATTEND Internal Medicine
PROC: 0DB68ZX Excision of Stomach, Via Natural or Artificial Opening Endoscopic, Diagnostic (ICD-10-PCS; principal; 2017-04-21 16:00)
PROC: 0DQ98ZZ Repair Duodenum, Via Natural or Artificial Opening Endoscopic (ICD-10-PCS; principal; 2017-04-21 16:00)
DX: K26.4 Chronic or unspecified duodenal ulcer with hemorrhage (principal); N18.6 End stage renal disease; I12.0 Hypertensive chronic kidney disease with stage 5 chronic kidney disease or end stage renal disease; D62 Acute posthemorrhagic anemia; I42.0 Dilated cardiomyopathy; I50.22 Chronic systolic (congestive) heart failure; D63.1 Anemia in chronic kidney disease; R79.89 Other specified abnormal findings of blood chemistry; I27.2 Other secondary pulmonary hypertension; E78.00 Pure hypercholesterolemia, unspecified; M10.9 Gout, unspecified; Z99.2 Dependence on renal dialysis; Z79.899 Other long term (current) drug therapy; Z84.1 Family history of disorders of kidney and ureter; Z83.3 Family history of diabetes mellitus; Z82.49 Family history of ischemic heart disease and other diseases of the circulatory system

== ENCOUNTER 2017-12-15 06:04 | Inpatient (IN) | payer OTHER, BC ==
[~2017-12-15] VITALS: Ht 182.9 cm; Wt 97.3 kg
[~2017-12-15 06:04] MED LIST changes: -METO5TAB25 PO; +NXM/40 PO; +SUCR1TAB29 PO
[2017-12-15] MEDS ORDERED: LIDOCAINE HCL 2% VISC SOLN 20 ML UDC PO STA (06:18)
[2017-12-15] MEDS ORDERED: ALUMINUM/MAGNESIUM SUSP 30 ML UDC PO STA (06:18)
[2017-12-15] MEDS ORDERED: ASPIRIN 81 MG CHEW PO STA (06:27)
[2017-12-15 06:28] LABS: HEMATOCRIT 28.5 % (42-52); HEMOGLOBIN 10.2 g/dL (14.0-18.0); MEAN CELL VOLUME 96.9 fL (80-100); MEAN CORPUSCULAR HEMOGLOBIN 34.7 pg (25-34); MEAN CORPUSCULAR HGB CONC 35.8 g/dl (32-36); RED CELL DISTRIBUTION WIDTH CV 14.4 % (11.5-14.5); RED CELL DISTRIBUTION WIDTH SD 50.5 fL (36.4-46.3); WHITE BLOOD COUNT 3.75 K/uL (4.8-10.8)
[2017-12-15] MEDS ORDERED: PANT40TA PO (06:29)
[2017-12-15] MEDS ORDERED: TAMS0.4C38 PO (06:30)
[2017-12-15] MEDS ORDERED: SULF400T7 PO (06:32)
[2017-12-15] MEDS ORDERED: NYSS/ PO (06:34)
--- NOTE | 2017-12-15 06:35 | EMERGENCY ROOM VISIT NOTE ---
History Report prepared by Aysha: Bernardo Romo Under the Supervision of: Dr. Radha Frey M.D. First contact with patient: 06:14 Chief Complaint: CHEST PAIN Stated Complaint: CHEST PAIN Nursing Triage Summary: patient states around 0400 he woke up with discomfort to center of his chest described as heaviness. patient states pain was 10/10 but has lessened since arrival. patient recently had kidney transplant on 11/18/17 and was told not to take any aspirin. History of Present Illness The patient is a 57 year old male who presents to the Emergency Room with complaints of constant chest pain that began this morning at 0400, 2 hours ago. He rates his pain as a 6/10 in severity. Walking around seemed to make the pain better. He took Tums without relief. There is no radiation of the pain into his arm, neck, or back. The patient did have a kidney transplant on the 18 of November , 27 days ago. He had a stress test before surgery. Source of History: patient Onset: 2 hours TAX CLERK Position: chest Symptom Intensity: 6/10 Timing: constant Modifying Factors (Relieving): other (Walking around) Review of Systems See HPI for pertinent positives & negatives. A total of 10 systems reviewed and were otherwise negative. Past Medical & Surgical Medical Problems: (1) Anemia (2) Duodenal ulcer (3) GI bleed (4) Hypertension (5) Kidney disease (6) Secondary hyperparathyroidism of renal origin Family History Diabetes mellitus FH: heart disease Kidney disease Social History Smoking Status: Never Smoker Alcohol Use: none Drug Use: none Marital Status: Occupation Status: employed Current/Historical Medications Scheduled Acyclovir (Zovirax), 400 MG PO BID Allopurinol (Zyloprim *), 300 MG PO QAM Atorvastatin (Lipitor), 20 MG PO QAM Carvedilol (Coreg), 6.25 MG PO BIDM Mycophenolate Mofetil (Cellcept), 500 MG PO QID Nystatin (Nystatin Suspension), 500,000 PO QID Pantoprazole (Protonix), 40 MG PO BID Prednisone (Prednisone), 15 MG PO QAM Prednisone (Prednisone), 5 MG PO DIRECTED Prednisone Tab (Prednisone), 10 MG PO DIRECTED Sulfamethoxazole-Trimethoprim (Bactrim 400MG/80MG), 1 TAB PO DAILY Tacrolimus (Prograf), 2 MG PO QAM Tacrolimus (Prograf), 1 MG PO QPM Tamsulosin Hcl (Flomax), 0.4 MG PO HS Allergies Coded Allergies: No Known Allergies (Verified , 12/15/17) Physical Exam Vital Signs Date Time Temp Pulse Resp B/P (MAP) Pulse Ox O2 Delivery O2 Flow Rate FiO2 12/15/17 06:35 70 18 109/71 100 Room Air 12/15/17 06:13 100 Room Air 12/15/17 06:12 72 12/15/17 06:08 36.6 77 18 112/70 98 Room Air Physical Exam Vital signs reviewed. General: 57-year-old chronically ill-appearing male, in some discomfort. HEENT: No scleral icterus, PERRLA, neck supple. Atraumatic. Cardiovascular: Regular rate and rhythm, no extra sounds. Post-operative bandages to the right lower abdomen Pulmonary: Clear to auscultation bilaterally, normal work of breathing. Abdomen: Soft, nontender, nondistended, positive bowel sounds. Musculoskeletal: Atraumatic, no peripheral edema. Neurologic: Patient awake alert and oriented x 3, full strength in all 4 extremities. Cranial nerves 2 through 12 grossly intact. Rectal, normal mucosa, guaiac negative brown stool. Skin: Warm, dry, no rash Medical Decision & Procedures ER Provider Diagnostic Interpretation: Radiology results as stated below per my review and radiologist interpretation: CHEST 2 VIEWS ROUTINE CLINICAL HISTORY: Atypical chest pain. History of kidney transplant. COMPARISON STUDY: April 21, 2017 FINDINGS: The heart remains enlarged. There is no failure. There is no focal pulmonary consolidation. There are no pleural effusions. There is a presumed bone island within the left anterior second rib.[ IMPRESSION: Cardiomegaly. No acute findings. Electronically signed by: Don Christianson M.D. 12/15/2017 6:39 AM Dictated Date/Time: 12/15/2017 6:39 AM Laboratory Results 12/15/17 06:21 Red Blood Count 2.94, Mean Corpuscular Volume 96.9, Mean Corpuscular Hemoglobin 34.7, Mean Corpuscular Hemoglobin Concent 35.8, Mean Platelet Volume 9.8, Neutrophils (%) (Auto) 87.2, Lymphocytes (%) (Auto) 9.6, Monocytes (%) (Auto) 0.3, Eosinophils (%) (Auto) 2.1, Basophils (%) (Auto) 0.3, Neutrophils # (Auto) 3.27, Lymphocytes # (Auto) 0.36, Monocytes # (Auto) 0.01, Eosinophils # (Auto) 0.08, Basophils # (Auto) 0.01 12/15/17 06:21 12/15/17 07:09 Test 12/15/17 06:21 12/15/17 07:09 White Blood Count 3.75 K/uL (4.8-10.8) Red Blood Count 2.94 M/uL (4.7-6.1) Hemoglobin 10.2 g/dL (14.0-18.0) Hematocrit 28.5 % (42-52) Mean Corpuscular Volume 96.9 fL (80-100) Mean Corpuscular Hemoglobin 34.7 pg (25-34) Mean Corpuscular Hemoglobin Concent 35.8 g/dl (32-36) Platelet Count 98 K/uL (130-400) Mean Platelet Volume 9.8 fL (7.4-10.4) Neutrophils (%) (Auto) 87.2 % Lymphocytes (%) (Auto) 9.6 % Monocytes (%) (Auto) 0.3 % Eosinophils (%) (Auto) 2.1 % Basophils (%) (Auto) 0.3 % Neutrophils # (Auto) 3.27 K/uL (1.4-6.5) Lymphocytes # (Auto) 0.36 K/uL (1.2-3.4) Monocytes # (Auto) 0.01 K/uL (0.11-0.59) Eosinophils # (Auto) 0.08 K/uL (0-0.5) Basophils # (Auto) 0.01 K/uL (0-0.2) RDW Standard Deviation 50.5 fL (36.4-46.3) RDW Coefficient of Variation 14.4 % (11.5-14.5) Immature Granulocyte % (Auto) 0.5 % Immature Granulocyte # (Auto) 0.02 K/uL (0.00-0.02) Platelet Estimate DECREASED Anion Gap 8.0 mmol/L (3-11) Est Creatinine Clear Calc Drug Dose 48.5 ml/min Estimated GFR () 40.5 Estimated GFR (Non- 35.0 BUN/Creatinine Ratio 19.2 (10-20) Calcium Level 9.1 mg/dl (8.5-10.1) Total Bilirubin 0.9 mg/dl (0.2-1) Alanine Aminotransferase (ALT/SGPT) 117 U/L (12-78) Alkaline Phosphatase 196 U/L (45-117) Troponin I 0.421 ng/ml (0-0.045) Total Protein 5.6 gm/dl (6.4-8.2) Albumin 2.8 gm/dl (3.4-5.0) Magnesium Level 1.6 mg/dl (1.8-2.4) Direct Bilirubin 0.6 mg/dl (0-0.2) Aspartate Amino Transf (AST/SGOT) 269 U/L (15-37) Total Creatine Kinase 29 U/L (39-308) Laboratory results per my review. Medications Administered Medications (Trade) Dose Ordered Sig/Inés Route Start Time Stop Time Status Last Admin Dose Admin Lidocaine HCl (Viscous Lidocaine 2% Soln) 10 ml NOW STAT PO 12/15/17 06:18 12/15/17 06:20 DC 12/15/17 06:18 10 ML Al Hydroxide/Mg Hydroxide (Maalox Susp) 30 ml NOW STAT PO 12/15/17 06:18 12/15/17 06:20 DC 12/15/17 06:34 30 ML Sucralfate (Carafate Susp) 1 gm NOW STAT PO 12/15/17 06:38 12/15/17 06:39 DC 12/15/17 07:27 1 GM Pantoprazole Sodium 80 mg/ Dextrose 120 ml @ 400 mls/hr NOW IV 12/15/17 06:45 01/14/18 06:44 12/15/17 07:26 400 MLS/HR Morphine Sulfate (MoRPHine SULFATE INJ) 4 mg NOW STAT IV 12/15/17 06:53 12/15/17 06:55 DC 12/15/17 07:29 4 MG ECG Per My Interpretation Indication: chest pain Rate (beats per minute): 65 Rhythm: normal sinus Findings: other (No PVCs, no BURT/STD) Comparison ECG Date: 04/23/2017 Change: no significant change ED Course 0616: Past medical records reviewed. The patient was evaluated in room A10. A complete history and physical examination was performed. 0618: Ordered Maalox Susp 30 mL PO, Lidocaine HCl 10 mL PO. 0627: Ordered Aspirin 324 mg PO. 07: I discussed the case with Dr. Pedro Solis Cardiology. He asked me to order and echocardiogram for the patient, and he will come to see him. Medical Decision Differential diagnosis: Etiologies such as cardiac ischemia, aortic dissection, pulmonary embolism, pneumonia, pneumothorax, musculoskeletal, infections, pericarditis, myocarditis , esophageal rupture, gastrointestinal, as well as others were entertained. This patient was evaluated and appeared to be in some discomfort. EKG reveals no evidence of acute ischemic change. There is no ectopy appreciated. Patient was advised not to take aspirin previously secondary to bleeding duodenal ulcer and his recent kidney transplant. IV Protonix 80 mg was ordered, p.o. Carafate. Patient continued to have significant discomfort was ordered IV morphine and Zofran. He subsequently vomited. Laboratory work reveals a creatinine of 2.06 with a troponin of 0.4. The patient did have a chronic troponin elevation prior to his transplant, the significance of this troponin elevation is uncertain. I did speak with Dr. Vasquez of cardiology who has requested a stat echo. Dr. Arredondo of the hospitalist service was consulted for admission. Patient was reevaluated and was feeling slightly improved. Blood pressure is borderline, therefore no nitroglycerin was ordered. A stool guaiac was performed and was negative. Patient and family are aware of the plans for admission and further management. Medication Reconcilliation Current Medication List: was personally reviewed by me Blood Pressure Screening Patient's blood pressure: Normal blood pressure Consults Time Called: 1910 Consulting Physician: Dr. Vasquez - Cardiology Returned Call: [id number] I discussed the case with Dr. Pedro Olvera. He asked me to order and echocardiogram for the patient, and he will come to see him. Impression Primary Impression: Substernal precordial chest pain Additional Impressions: Kidney disease Renal transplant recipient Elevated troponin Scribe Attestation The scribe's documentation has been prepared under my direction and personally reviewed by me in its entirety. I confirm that the note above accurately reflects all work, treatment, procedures, and medical decision making performed by me. Departure Information Dispostion Being Evaluated By Hospitalist Referrals Nakul Becerra M.D. (PCP) Patient Instructions My [facility] Problem Qualifiers
[2017-12-15] MEDS ORDERED: ACYC-57 PO (06:36)
[2017-12-15] MEDS ORDERED: TACR1CAP PO ×2 (06:37)
[2017-12-15] MEDS ORDERED: SUCRALFATE 1 GM/10 ML UDC PO STA (06:38)
[2017-12-15] MEDS ORDERED: PRED10TA PO ×2 (06:38→06:39)
--- NOTE | 2017-12-15 06:40 | DIAGNOSTIC IMAGING REPORT ---
CHEST 2 VIEWS ROUTINE CLINICAL HISTORY: Atypical chest pain. History of kidney transplant. COMPARISON STUDY: April 21, 2017 FINDINGS: The heart remains enlarged. There is no failure. There is no focal pulmonary consolidation. There are no pleural effusions. There is a presumed bone island within the left anterior second rib.[ IMPRESSION: Cardiomegaly. No acute findings. Electronically signed by: Don Christianson M.D. 12/15/2017 6:39 AM Dictated Date/Time: 12/15/2017 6:39 AM
[2017-12-15] MEDS ORDERED: PRED-301 PO (06:41)
[2017-12-15] MEDS ORDERED: MYCO500T4 PO (06:43)
[2017-12-15] MEDS ORDERED: PANTOprazole INJ 80 MG in DEXTROSE 5% 100ML 100 ML IV SCH (06:45)
[2017-12-15] MEDS ORDERED: MoRPHine SULFATE 4 MG/ML 1 ML CARP\\VIAL IV STA (06:53)
[2017-12-15] MEDS ORDERED: ONDANSETRON INJ 2 MG/ML 2 ML VIAL IV STA ×2 (06:53→07:47)
[2017-12-15 06:57] LABS: BASO % 0.3 %; BASO ABS # 0.01 K/uL (0-0.2); EOS % 2.1 %; EOS ABS # 0.08 K/uL (0-0.5); IG# 0.02 K/uL (0.00-0.02); LYMPH % 9.6 %; LYMPH ABS # 0.36 K/uL (1.2-3.4); MEAN PLATELET VOLUME 9.8 fL (7.4-10.4); MONO % 0.3 %; MONO ABS # 0.01 K/uL (0.11-0.59); NEUT % 87.2 %; NEUT ABS # 3.27 K/uL (1.4-6.5); PLATELET COUNT 98 K/uL (130-400)
[2017-12-15 06:58] LABS: ALBUMIN 2.8 gm/dl (3.4-5.0); TOTAL PROTEIN 5.6 gm/dl (6.4-8.2)
[2017-12-15 07:06] LABS: CREATININE 2.06 mg/dl (0.60-1.40)
[2017-12-15 07:07] LABS: CALCIUM 9.1 mg/dl (8.5-10.1)
[2017-12-15] MEDS ORDERED: FENTANYL CITRATE INJ 50 MCG/1 ML 2 ML VIAL IV STA (07:51)
[2017-12-15] MEDS ORDERED: POLYETHYLENE (MIRALAX) 17 GM PACK PO PRN (08:45)
[2017-12-15] MEDS ORDERED: ACETAMINOPHEN 325 MG TAB PO PRN (08:45)
[2017-12-15] MEDS ORDERED: MAGNESIUM HYDROXIDE SUSP 30 ML UDC PO PRN (08:45)
[2017-12-15] MEDS ORDERED: ALUMINUM/MAGNESIUM/SIMETH (MAALOX MAX) 30 ML UDC PO PRN (08:45)
[2017-12-15] MEDS ORDERED: HYDROmorphone INJ 0.5 MG/0.5 ML SYR IV PRN (08:45)
[2017-12-15] MEDS ORDERED: NITROGLYCERIN 0.4 MG SL PER TAB CHARGE SL PRN (08:45)
[2017-12-15] MEDS ORDERED: ONDANSETRON INJ 2 MG/ML 2 ML VIAL IV PRN (08:45)
[2017-12-15] MEDS ORDERED: PANTOprazole SOD 40 MG TAB PO SCH (09:00)
[2017-12-15 09:11] LABS: CKMB 2.4 ng/ml (0.5-3.6); LIPASE 144 U/L (73-393)
--- NOTE | 2017-12-15 09:12 | History and Physical ---
History & Physical Date & Time of Service: Dec 15, 2017 at 08:50 Chief Complaint: Chest Pain Primary Care Physician: Nakul Becerra M.D. History of Present Illness Source: patient, family (/mother), clinic records, hospital records Patient is a pleasant 57 y/o male, with PMHx of ESRD s/p renal transplant on 09/2017 on immunosuppressants, chronic duodenitis, esophageal ulcer & duodenal ulcer, dilated cardiomyopathy w/ EF of 40-45%, pulmonary HTN, HTN, HLD, anemia of chronic kidney disease, and gout, who presented to the ED because of epigastric/RUQ pain that woke him from his sleep at 0400. Patient did have associate N/V. Currently, he is pain free. He does still have his gallbladder- denies any issues. Trop mildly elevated at 0.421, but chronically elevated around 0.2. He had a negative stress test prior to undergoing kidney transplant. Patient denies any fever, chills, sweats, lightheadedness, dizziness , vision changes, CP, palpitations, edema, SOB, wheezing, cough, diarrhea, urinary symptoms, melena, numbness/tingling, weakness, muscle/joint pain, anxiety/depression, active bleeding, or new skin discoloration/changes. Past Medical/Surgical History Medical Problems: ESRD s/p renal transplant on 11/18/2017 on immunosuppressants anemia of chronic kidney disease, chronic duodenitis h/o esophageal ulcer & duodenal ulcer dilated cardiomyopathy w/ EF of 40-45% pulmonary HTN HTN HLD gout Surgical history: s/p renal transplant LUE AVF Family History Diabetes mellitus FH: heart disease Kidney disease Social History Smoking Status: Never Smoker Drug Use: none Marital Status: Housing status: lives with significant other Occupational Status: employed Immunizations History of Influenza Vaccine: Yes History of Tetanus Vaccine?: Unknown History of Pneumococcal: No History of Hepatitis B Vaccine: No Allergies Coded Allergies: No Known Allergies (Verified , 12/15/17) Home Medications Scheduled Acyclovir (Zovirax), 400 MG PO BID Allopurinol (Zyloprim *), 300 MG PO QAM Atorvastatin (Lipitor), 20 MG PO QAM Carvedilol (Coreg), 6.25 MG PO BIDM Mycophenolate Mofetil (Cellcept), 500 MG PO QID Nystatin (Nystatin Suspension), 500,000 PO QID Pantoprazole (Protonix), 40 MG PO BID Prednisone (Prednisone), 15 MG PO QAM Prednisone (Prednisone), 5 MG PO DIRECTED Prednisone Tab (Prednisone), 10 MG PO DIRECTED Sulfamethoxazole-Trimethoprim (Bactrim 400MG/80MG), 1 TAB PO DAILY Tacrolimus (Prograf), 2 MG PO QAM Tacrolimus (Prograf), 1 MG PO QPM Tamsulosin Hcl (Flomax), 0.4 MG PO HS Physical Exam Vital Signs Date Time Temp Pulse Resp B/P (MAP) Pulse Ox O2 Delivery O2 Flow Rate FiO2 12/15/17 06:35 70 18 109/71 100 Room Air 12/15/17 06:13 100 Room Air 12/15/17 06:12 72 12/15/17 06:08 36.6 77 18 112/70 98 Room Air General Appearance: no apparent distress Head: normocephalic, atraumatic Eyes: normal inspection, PERRL ENT: hearing grossly normal Neck: supple Respiratory/Chest: lungs clear, no respiratory distress, no accessory muscle use Cardiovascular: regular rate, rhythm, + systolic murmur Abdomen/GI: normal bowel sounds, soft, + tenderness (epigastic/RUQ), + pertinent finding (MISBAH drain RLQ w/ serous output ) Back: normal inspection Extremities/Musculoskelatal: no calf tenderness, no pedal edema Neurologic/Psych: alert, normal mood/affect, oriented x 3 Skin: normal color, warm/dry, no rash Diagnostics Laboratory Results Results Past 24 Hours Test 12/15/17 06:21 12/15/17 07:09 12/15/17 08:37 Range/Units White Blood Count 3.75 4.8-10.8 K/uL Red Blood Count 2.94 4.7-6.1 M/uL Hemoglobin 10.2 14.0-18.0 g/dL Hematocrit 28.5 42-52 % Mean Corpuscular Volume 96.9 80-100 fL Mean Corpuscular Hemoglobin 34.7 25-34 pg Mean Corpuscular Hemoglobin Concent 35.8 32-36 g/dl Platelet Count 98 130-400 K/uL Mean Platelet Volume 9.8 7.4-10.4 fL Neutrophils (%) (Auto) 87.2 % Lymphocytes (%) (Auto) 9.6 % Monocytes (%) (Auto) 0.3 % Eosinophils (%) (Auto) 2.1 % Basophils (%) (Auto) 0.3 % Neutrophils # (Auto) 3.27 1.4-6.5 K/uL Lymphocytes # (Auto) 0.36 1.2-3.4 K/uL Monocytes # (Auto) 0.01 0.11-0.59 K/uL Eosinophils # (Auto) 0.08 0-0.5 K/uL Basophils # (Auto) 0.01 0-0.2 K/uL RDW Standard Deviation 50.5 36.4-46.3 fL RDW Coefficient of Variation 14.4 11.5-14.5 % Immature Granulocyte % (Auto) 0.5 % Immature Granulocyte # (Auto) 0.02 0.00-0.02 K/uL Platelet Estimate DECREASED Sodium Level 138 136-145 mmol/L Potassium Level 4.0 3.5-5.1 mmol/L Chloride Level 109 98-107 mmol/L Carbon Dioxide Level 21 21-32 mmol/L Anion Gap 8.0 3-11 mmol/L Blood Urea Nitrogen 40 7-18 mg/dl Creatinine 2.06 0.60-1.40 mg/dl Est Creatinine Clear Calc Drug Dose 48.5 ml/min Estimated GFR () 40.5 Estimated GFR (Non- 35.0 BUN/Creatinine Ratio 19.2 10-20 Random Glucose 130 70-99 mg/dl Calcium Level 9.1 8.5-10.1 mg/dl Magnesium Level 1.6 1.8-2.4 mg/dl Total Bilirubin 0.9 0.2-1 mg/dl Direct Bilirubin 0.6 0-0.2 mg/dl Aspartate Amino Transf (AST/SGOT) 269 15-37 U/L Alanine Aminotransferase (ALT/SGPT) 117 12-78 U/L Alkaline Phosphatase 196 45-117 U/L Total Creatine Kinase 29 39-308 U/L Troponin I 0.421 0-0.045 ng/ml Total Protein 5.6 6.4-8.2 gm/dl Albumin 2.8 3.4-5.0 gm/dl Diagnostic Radiology CHEST 2 VIEWS ROUTINE CLINICAL HISTORY: Atypical chest pain. History of kidney transplant. COMPARISON STUDY: April 21, 2017 FINDINGS: The heart remains enlarged. There is no failure. There is no focal pulmonary consolidation. There are no pleural effusions. There is a presumed bone island within the left anterior second rib.[ IMPRESSION: Cardiomegaly. No acute findings. Electronically signed by: Don Christianson M.D. 12/15/2017 6:39 AM Dictated Date/Time: 12/15/2017 6:39 AM The status of this report is Signed. Draft = Not yet reviewed or approved by Radiologist. Signed = Reviewed and approved by Radiologist. EKG MYLA BARGER ID:[id number] 15-DEC-2017 06:07:22 [facility] Normal sinus rhythm Possible Left atrial enlargement Borderline ECG When compared with ECG of 23-APR-2017 07:25, No significant change was found 25mm/s 10mm/mV 150Hz 8.0 SP2 12SL 241 LOTTIE: 0 Referred by: Referred Self Unconfirmed Vent. rate 65 BPM MA interval 194 ms QRS duration 114 ms QT/QTc 392/407 ms P-R-T axes 52 32 78 1960 (57 yr) Male Room: Loc:15 Associate Dean Of Women:Shad Lewis Test ind: Impression Assessment and Plan Patient is a pleasant 57 y/o male, with PMHx of ESRD s/p renal transplant on 09/2017 on immunosuppressants, chronic duodenitis, esophageal ulcer & duodenal ulcer, dilated cardiomyopathy w/ EF of 40-45%, pulmonary HTN, HTN, HLD, anemia of chronic kidney disease, and gout, who presented to the ED because of epigastric/RUQ pain that woke him from his sleep at 0400. Epigastric/RUQ pain- ACS r/o vs gallbladder disease vs GERD: - Admit to tele for cardiac monitoring - Trend cardiac enzymes - EKG QAM and PRN for chest pain - Nitro PRN for pain - ECHO pending - Elevated LFTs- trend- pending RUQ US - IV Protonix daily while NPO - Will make NPO pending ECHO/RUQ US - Consult cardiology, appreciate recommendations - Consider general surgery consultation pending RUQ US Hypomagnesemia: Replace w/ IV Mag 1 gm x1- follow mag level and replace PRN ESRD s/p renal transplant on 11/18/2017 on immunosuppressants, anemia of chronic kidney disease- follows w/ Dr. Becerra: - Continue Cellcept 500 mg WID, Acyclovir 400 mg BID, Prednisone 15 mg daily ( decreases to 10 mg on 12/17, then 5 mg on 12/30), Prograf 2 mg QAM and 1 mg HS, Bactrim - H&H- STABLE- baseline around 10- continue to follow - Pancytopenia- STABLE- continue to follow - Consult nephrology in case procedure needed, appreciate recommendations Dilated cardiomyopathy w/ EF of 40-45%, pulmonary HTN, HTN, HLD- follows w/ Dr. Lebron: Continue Coreg 6.25 mg BID, Lipitor 20 mg HS Gout: Continue Allopurinol Chronic duodenitis, esophageal ulcer & duodenal ulcer- follows w/ Case: IV Protonix DVT prophylaxis: TEDs/SCDs; hold chemical anticoagulation due to pancytopenia/? need for procedure Code status: LEVEL I, FULL Dispo: From home, lives w/ - no discharge needs anticipated Resuscitation Status LEVEL I, FULL VTE Prophylaxis Will order VTE Prophylaxis: Yes Reviewed: Pt Seen/Exam by Me History Physician Director Video Supervision Note: I interviewed and examined the patient. Discussed with MACARENA Moreira and agree with findings and plan as documented in the note. Any exceptions or clarifications are listed here: Pt presented with severe RUQ and epigastric pain that awoke him from sleep at 0400 today. He had associated N/V. Pain was finally relieved after receiving morphine and then Fentanyl in the ER. He had an elevated troponin but STAT ECHO performed and read by Cardiology as no WMAs, and ECGs without acute ischemia. He had elevated LFTs and a RUQ US was obtained which showed a significant amount of gallbladder sludge, but no stones, no pericholecystic fluid, and no GB wall thickening, no mention of CBD dilatation. Case discussed with Nephrology here, and his Transplant Surgeon at [facility] (Dr. Jose Alejandro Dominguez [phone]). When I initially saw the pt, he was actively vomiting bilious clear fluid into an emesis bag. He had just received IV Zofran. He was no longer having any abd pain at all. Denied chest pain or SOB. Denies bloody stools, no melena, no hematemesis. When I saw him again later to review results of GB US and my discussion with Transplant Surgeon, he was feeling completely back to normal. Past history all as above per MACARENA H&P and agree. ROS as above Vitals reviewed NAD, AAOx3 oropharynx clear, MMM RRR no mgr CTAB no wcr +BS soft NT ND, neg Joy's sign, +MISBAH drain coming from RLQ with minimal serosanguineous fluid, +palpable transplant kidney in RLQ Ext: LUE with AVF in place, no edema in LEs, no calf tenderness Skin-no rash, no jaundice Labs reviewed and show significantly elevated transaminases and Alk phos, normal TBili but with elevated DBili, no leukocytosis, but rather with pancytopenia fairly stable from previous, Troponin mildly elevated at 0.4, and Herpetologist lower than previous at 2.0. CXR image personally reviewed and clear Pt is a 57 yo male with a h/o ESRD now s/o recent Renal transplant, on immunosuppressive therapy, chronic systolic CHF, duodenal ulcer, HTN, HL, gout, and Pulm HTN, here with acute RUQ/epigastric pain with N/V and elevated LFTs. All seems consistent with symptomatic cholelithiasis or from GB sludge. Does not seem consistent with recurrent duodenal ulcer, no evidence of free air under diaphragm on CXR, and now completely symptoms-free, hgb stable from previous, Hemoccult negative in ER, no h/o GI bleeding recently. -r/o ACS with serial troponin, ECHO no WMAs, not likely ACS and is demand ischemia -keep hydrated with IVFs, keep NPO except ice chips -GB US with significant sludge, no evidence of acute cholecystitis--> cannot have HIDA for 3 days as he received Fentanyl in the ER and could cause false positive--> given clinical picture, most likely consistent with passage of gallstone and/or sludge, no evidence of biliary obstruction and now symptoms free -d/w transplant Surgeon who agreed that if pt has improved, not requiring opioids or antiemetics, LFTs trending downward, no further pain, remains afebrile, no need fo rurgent transfer to [facility]--> HOWEVER, if any of the above occur, should be transferred urgently to [facility] for inpatient cholecystectomy -otherwise, should cool down here and then be discharged with elective uriel to be done at [facility] next week -continue antirejection meds -follow LFTs, lipase (which was negative) Documented By: Minerva Sagastume
--- NOTE | 2017-12-15 09:37 | ECHOCARDIOGRAM REPORT ---
*NOTICE TO RECEIVING LIBERTARIAN AGENCY This information is strictly Confidential and protected under [place] law. [place] law prohibits you from making any further disclosure of this information unless further disclosure is expressly permitted by the written consent of the person to whom it pertains or is authorized by law. A general authorization for the release of medical or other information is not sufficient for this purpose. Hospital accepts no responsibility if the information is made available to any other person, INCLUDING THE PATIENT. Interpretation Summary * Name: MYLA BARGER II Study Date: 12/15/2017 07:59 AM BP: 109/71 mmHg * Patient Location: [facility] HR: 80 * : 1960 (M/d/yyyy) Gender: Male Height: 72 in * Age: 57 yrs Ethnicity: CA Weight: 215 lb * Ordering Physician: Radha Frey * Referring Physician: Self, Referred * Performed By: Elizabeth Santoro RDCS * * Reason For Study: CHEST PAIN * BSA: 2.2 m2 * -- Conclusions -- * Left ventricular systolic function is normal. * No regional wall motion abnormalities noted. * Ejection Fraction = 50-55%. * There is mild concentric left ventricular hypertrophy. * Diastolic dysfunction, Grade II (pseudonormalization pattern). * There is mild tricuspid regurgitation. Procedure Details * A complete two-dimensional transthoracic echocardiogram was performed (2D, M-mode, Doppler and color flow Doppler). Left Ventricle * The left ventricle is normal in size. * There is mild concentric left ventricular hypertrophy. * Left ventricular systolic function is normal. * Ejection Fraction = 50-55%. * No regional wall motion abnormalities noted. Right Ventricle * The right ventricle is grossly normal size. * The right ventricular systolic function is normal as assessed by tricuspid annular plane systolic excursion (TAPSE) (normal >1.5 cm). Atria * The left atrium is mildly dilated. * The right atrium is mildly dilated. * No ASD detected; PFO is not assessed. Mitral Valve * Mitral valve sclerosis without significant stenosis. * Significant mitral regurgitation is absent. Tricuspid Valve * The tricuspid valve anatomy is normal. * Tricuspid stenosis is absent. * There is mild tricuspid regurgitation. Aortic Valve * The aortic valve is tricuspid. The leaflet thickness if normal. There is no aortic stenosis, and no significant insufficiency. * Aortic valve sclerosis moderate, without significant aortic valvular stenosis. * No aortic regurgitation is present. Pulmonic Valve * The pulmonary valve is not well seen, but the Doppler examination is normal without significant regurgitation or stenosis. Great Vessels * The aortic root is normal size. * The pulmonary is not well visualized. Pericardium/Pleural * There is no pericardial effusion. Great Vessels * Normal inferior vena cava size and collapsability with sniff indicates a normal right atrial pressure of 3 mmHg Left Ventricular Diastolic Function * Diastolic dysfunction, Grade II (pseudonormalization pattern). MMode 2D Measurements and Calculations IVSd 1.8 cm IVSs 2.2 cm LVIDd 5.8 cm LVIDs 4.2 cm LVPWd 1.4 cm LVPWs 1.7 cm IVS/LVPW 1.3 FS 28.3 % EDV(Teich) 166.6 ml ESV(Teich) 76.7 ml EF(Teich) 54.0 % EDV(cubed) 195.2 ml ESV(cubed) 71.9 ml EF(cubed) 63.2 % % IVS thick 21.7 % % LVPW thick 26.5 % LV mass(C)d 443.6 grams LV mass(C)dI 201.9 grams/m\S\2 LV mass(C)s 384.5 grams LV mass(C)sI 175.0 grams/m\S\2 SV(Teich) 89.9 ml SI(Teich) 40.9 ml/m\S\2 SV(cubed) 123.3 ml SI(cubed) 56.1 ml/m\S\2 Ao root diam 3.9 cm Ao root area 12.2 cm\S\2 LA dimension 4.3 cm LA/Ao 1.1 LVAd ap4 44.9 cm\S\2 LVLd ap4 10.7 cm EDV(MOD-sp4) 156.1 ml EDV(sp4-el) 159.7 ml LVAs ap4 27.2 cm\S\2 LVLs ap4 9.0 cm ESV(MOD-sp4) 71.6 ml ESV(sp4-el) 70.2 ml EF(MOD-sp4) 54.1 % EF(sp4-el) 56.0 % LVAd ap2 47.4 cm\S\2 LVLd ap2 10.3 cm EDV(MOD-sp2) 181.9 ml EDV(sp2-el) 184.3 ml LVAs ap2 30.7 cm\S\2 LVLs ap2 8.8 cm ESV(MOD-sp2) 92.1 ml ESV(sp2-el) 91.1 ml EF(MOD-sp2) 49.3 % EF(sp2-el) 50.6 % LVLd %diff -3.60 % EDV(MOD-bp) 172.3 ml LVLs %diff -2.03 % ESV(MOD-bp) 79.6 ml EF(MOD-bp) 53.8 % SV(MOD-sp4) 84.5 ml SI(MOD-sp4) 38.5 ml/m\S\2 SV(MOD-sp2) 89.7 ml SI(MOD-sp2) 40.8 ml/m\S\2 SV(MOD-bp) 92.6 ml SI(MOD-bp) 42.2 ml/m\S\2 SV(sp4-el) 89.5 ml SI(sp4-el) 40.7 ml/m\S\2 SV(sp2-el) 93.2 ml SI(sp2-el) 42.4 ml/m\S\2 Doppler Measurements and Calculations MV E max manuela 123.1 cm/sec MV A max manuela 106.9 cm/sec MV E/A 1.2 MV dec time 0.29 sec Ao V2 max 211.2 cm/sec Ao max PG 17.8 mmHg Ao max PG (full) 10.6 mmHg Ao V2 mean 141.2 cm/sec Ao mean PG 9.2 mmHg Ao mean PG (full) 4.8 mmHg Ao V2 VTI 43.8 cm LV V1 max PG 7.3 mmHg LV V1 mean PG 4.4 mmHg LV V1 max 134.8 cm/sec LV V1 mean 98.4 cm/sec LV V1 VTI 32.4 cm SV(Ao) 535.5 ml SI(Ao) 243.8 ml/m\S\2 TR max manuela 402.5 cm/sec
--- NOTE | 2017-12-15 11:07 | CARDIOLOGY CONSULTATION REPORT ---
DATE OF CONSULTATION: 12/15/2017 REASON FOR CONSULTATION: Elevated troponin I level. HISTORY OF PRESENT ILLNESS: Mr. Carbajal is a very pleasant 57-year-old white male with a history of longstanding Dilated Cardiomyopathy (LVEF 50%), Minimal CAD on Cardiac Catheterization 04/01/2017 (luminal irregularities only), [id number] Pulmonary Hypertension, Hypertension, Dyslipidemia, history of PVCs, Palpitations, Gout, Chronically Elevated Troponin I, and ESRD s/p Renal Transplant 11/18/2017 at [facility]. The patient's renal transplant was largely uncomplicated. Since being home, he is doing quite well -- although his creatinine is still elevated. The patient was in his usual state of health, but was awakened this morning at approximately 0400 complaining of midepigastric pain which was constant, did not radiate, and was without any associated symptoms. He specifically denies any associated chest pain, heaviness, tightness, pressure. No associated nausea, vomiting, diaphoresis, or dyspnea. He has not had any recent changes in his exertional tolerance. He denies any palpitations, syncope, or near syncope. He tried Tums without relief. Once he was admitted to the emergency room, he received Morphine and developed some mild nausea. He was subsequently given Fentanyl and Zofran -- and has had complete relief of his midepigastric discomfort and nausea. His troponin I level is mildly elevated at 0.421 ng/mL, but he appears to have chronic elevation of the troponin I level throughout all his checks here at [facility]. His CK is within normal limits, and a CK-MB was not checked. His EKG thus far shows normal sinus rhythm at the rate of 65 beats per minutes, possible left atrial enlargement, mild intraventricular conduction delay. No change compared to 04/23/2017 tracing. HOME MEDICATIONS: 1. Acyclovir 400 mg b.i.d. 2. Allopurinol 300 mg daily. 3. Lipitor 20 mg q.a.m. 4. Coreg 6.25 mg b.i.d. 5. CellCept 500 mg p.o. q.i.d. 6. Nystatin suspension 500,000 units p.o. q.i.d. 7. Protonix 40 mg b.i.d. 8. Prednisone 15 mg q.a.m. 9. Bactrim DS 1 tablet daily. 10. Prograf 2 mg q.a.m., 1 mg q.p.m. 11. Flomax 0.4 mg p.o. at bedtime. ALLERGIES: NKDA. PAST MEDICAL HISTORY: 1. History of anemia. 2. Carpal tunnel syndrome. 3. Dilated Cardiomyopathy, most recent LVEF 50% on Echocardiogram today. 4. Mild concentric LVH. 5. Grade 2 LV diastolic dysfunction. 6. Mild MR. 7. Mild TR. 8. Status post Renal Transplant, 11/18/2017. 9. History of PUD, on chronic Protonix. 10. History of gout. 11. History of herpes simplex type 1. 12. Hypertension. 13. Hypercholesterolemia. 14. Moderate to severe pulmonary hypertension. 15. History of Schatzki's ring. 16. History of obstructive sleep apnea. 17. History of esophageal ulcer. 18. History of duodenal ulcer. 19. Cardiac Catheterization 04/01/2017 showed a dilated LV with an LVEF of 30% with global hypokinesis, mild luminal irregularities in 3 coronary arteries, severe pulmonary hypertension. 20. Echocardiogram, September 2017, showed LVEF of 40% to 45%, global hypokinesis of the left ventricle, mild concentric LVH with grade 2 diastolic dysfunction, mild MR, mild TR. SOCIAL HISTORY: The patient is and lives with his in [place], [place]. He is a lifelong nonsmoker. FAMILY HISTORY: Significant for diabetes mellitus, heart disease and kidney disease. PHYSICAL EXAMINATION: VITAL SIGNS: Temperature is 36.6 degree Celsius, pulse is 70 and regular with occasional ectopy, respiratory rate is 14, nonlabored, blood pressure is 110/71, SpO2 is 98% on room air. GENERAL: The patient is in no acute distress. HEENT: Head is atraumatic, normocephalic. EOMs intact. Sclerae are anicteric. Face is symmetric. No perioral cyanosis. Mucous membranes moist. NECK: Without thyromegaly, adenopathy, or JVD. Carotid upstrokes +2 bilaterally without bruits. CHEST AND LUNGS: Clear to auscultation throughout the lung dubois, no wheezes, rales or rhonchi. CARDIOVASCULAR: S1 and S2 are regular with a grade 1/6 systolic murmur heard at the right upper sternal border and left lower sternal border. No diastolic murmurs appreciated. No obvious gallops or rubs. PMI is displaced laterally. No lifts, heaves or thrills. No abdominal, aortic or renal bruits. ABDOMEN: Bowel sounds are present. No tenderness. There is a surgical tube in the right lower quadrant, site of his renal graft. EXTREMITIES: Without clubbing, cyanosis or edema. AV fistula is present on the left upper extremity. NEUROLOGIC: The patient is awake, alert and oriented. Pleasant and cooperative. He answers questions appropriately. Speech is clear. Normal movement in all 4 extremities. Murray pattern not assessed. EKG shows a normal sinus rhythm, no acute changes. Telemetry monitoring reveals predominantly sized rhythm with relatively frequent PVCs. Echocardiogram was done earlier today. His LVEF appears to have normalized at 50%. Full echo report is pending. LABORATORY DATA: Troponin I level is 0.421 ng/mL, total CK is 29 units per liter, CK-MB is pending. Sodium is 138 mmol/L, potassium 4.0 mmol/L, BUN 40 mg/dL, and creatinine 2.06 mg/dL. Random glucose 130 mg/dL. Magnesium level is slightly low at 1.6 mg/dL. LFTs are abnormal. Lipase level is pending. White blood cell count is 3.75 with a hemoglobin of 10.2 g/dL, hematocrit 28.5% and platelet count 98,000. ASSESSMENT: 1. Elevated troponin I level, this does not appear to be an acute coronary syndrome. He appears to have chronically elevated troponin I levels. 2. Midepigastric pain without radiation, pain is currently controlled, possible gall bladder disease. 3. Dilated Cardiomyopathy -- LVEF 50%. 4. Usskeqor-sc-xwetvc pulmonary hypertension. 5. Hypertension. 6. Hypercholesterolemia. 7. Status post renal transplant 11/18/2017, [facility]. 8. Hypercholesterolemia. 9. Diagnoses mentioned above. PLAN: 1. Discussed with Dr. Lebron who also met with, interviewed and examined the patient. 2. This does not appears to be an acute coronary event. He appears to have a chronically elevated troponin I level which may be related to his chronic kidney disease. 3. Nonetheless we will check a CK-MB level as historically this has been normal along with a normal CK levels despite elevated troponin I levels. 4. Echocardiogram was already performed -- Normal EF, No RWMA's. 5. He appears stable from a cardiac standpoint. 6. Continue Coreg 6.25 mg b.i.d. 7. Continue Atorvastatin at usual dose. 9. Continue immunosuppressive agents for renal transplant. 10. We will continue to follow this patient along while hospitalized. MTDD
[2017-12-15 11:30] VITALS: BP 109/64; PULSE 92; TEMP 36.6; O2SAT 100; Ht 182.9 cm; Wt 97.3 kg
[2017-12-15] MEDS ORDERED: MAGNESIUM SULFATE 1GM / D5W 1 GM in PREMIXED IN D5W 100 ML IV ONE (12:15)
[2017-12-15] MEDS: ACYCLOVIR 200 MG CAP PO SCH ×2 (13:08→21:00)
[2017-12-15] MEDS: ALLOPURINOL 300 MG TAB PO SCH (13:08)
[2017-12-15] MEDS: SODIUM CHLORIDE 0.9% 1000ML 1,000 ML IV SCH (13:09)
[2017-12-15] MEDS: NYSTATIN SUSP 500,000 U/5 ML UDC PO SCH ×3 (13:30→21:00)
[2017-12-15] MEDS: SULFAMETHOXAZOLE/TRIMETHOPRIM 400/80MG TAB PO SCH (13:39)
[2017-12-15] MEDS: TACROLIMUS 1 MG CAP PO SCH (13:39)
[2017-12-15] MEDS: MYCOPHENOLATE MOFETIL 250 MG CAP (CELLCEPT) PO SCH ×3 (13:40→21:00)
[2017-12-15] MEDS ORDERED: NURSING VERBAL MED ORDER ONE (14:15)
[2017-12-15] MEDS ORDERED: ONDANSETRON INJ 2 MG/ML 2 ML VIAL IV ONE (14:30)
[2017-12-15] MEDS ORDERED: PROMETHAZINE HCL INJ 12.5 MG in SODIUM CHLORIDE 0.9% 50ML 50 ML IV PRN (14:30)
--- NOTE | 2017-12-15 14:39 | DIAGNOSTIC IMAGING REPORT ---
GALLBLADDER-ABD LIMITED CLINICAL HISTORY: 57 years-old Male presenting with elevated LFTs, chest pain, r/o gallstone. TECHNIQUE: Real-time grayscale and limited color Doppler ultrasound imaging of the abdomen limited to the right upper quadrant was performed. COMPARISON: CT from 01/04/2017. FINDINGS: Pancreas: Largely obscured due to overlying bowel gas. Liver: Hyperechogenic parenchyma with heterogeneous echotexture, likely indicating fibrosis or steatosis. The liver measures 17.7 cm in maximal sagittal dimension. No sonographic evidence of hepatic mass. Main portal vein patent with normal directional flow. Biliary: No intrahepatic biliary ductal dilatation. Common bile duct measures up to 3 mm in diameter. Gallbladder: Large amount of gallbladder sludge. The gallbladder is mildly distended measuring over 12 cm in length. No evidence of gallstones, gallbladder wall thickening, or pericholecystic fluid or inflammatory change. Right kidney: Highly atrophic not visualized. Ascites: None. Other: None. IMPRESSION: 1. Gallbladder contains a large amount of sludge and is mildly distended, which may be physiologic. No other findings to suggest cholecystitis. If there is continuing clinical concern for this diagnosis, nuclear medicine HIDA scan could be obtained. 2. Hyperechogenic and heterogeneous hepatic parenchyma could indicate underlying fibrosis or steatosis. Electronically signed by: Abimael Ashley M.D. 12/15/2017 2:38 PM Dictated Date/Time: 12/15/2017 2:34 PM
--- NOTE | 2017-12-15 14:51 | Discharge Instructions ---
Discharge Instructions Date of Service Dec 15, 2017. Admission Reason for Admission: Elevated Lft's, Elevated Troponin Discharge Discharge Diagnosis / Problem: Epigastric pain, elevated LFTs, elevated troponin Discharge Goals Goal(s): Decrease discomfort, Improve function, Improve disease control, Learn about illness, Diagnostic testing, Therapeutic intervention, Prevent Disease Progression Activity Recommendations Activity Limitations: per Instructions/Follow-up section . Instructions / Follow-Up Instructions / Follow-Up You were admitted to [facility] due to epigastric/RUQ pain, nausea, and vomiting. Your liver enzymes became significantly elevated despite your pain resolving. The cause of your symptoms at this time is most likely secondary to gallstones and sludge in your gallbladder. You should have further evaluation of this and possible surgery to remove your gallbladder. Due to your recent kidney transplant, [facility] Transplant Surgeon, Dr. Dominguez, would like you to be report to their facility. Please await a call back on further instructions as to where to report once you get down there, but plan on checking in to the ER at [facility] for now when you arrive. Please refer to discharge instructions as per Nura Margarita. FOLLOW-UPS: Follow-up with [facility] provider within 24 hours. Current Hospital Diet Patient's current hospital diet: Discharge Diet Recommended Diet: N/A Pending Studies Studies pending at discharge: no Medical Emergencies . Who to Call and When: Medical Emergencies: If at any time you feel your situation is an emergency, please call 911 immediately. . Non-Emergent Contact Non-Emergency issues call your: Primary Care Provider, Specialist Call Non-Emergent contact if: you have a fever, your pain is not controlled, your pain is worsening, your pain is unusual for you, your pain is concerning you, wound has increased drainage, wound has increased redness, wound has increased pain, you have any medication questions . . "Provider Documentation" section prepared by Gina Moreira. .
[2017-12-15 14:52] LABS: CKMB 1.9 ng/ml (0.5-3.6)
--- NOTE | 2017-12-15 15:06 | Discharge Summary ---
Discharge Summary Date of Service Dec 15, 2017. Discharge Summary Admission Date: Dec 15, 2017 at 08:49 Discharge Date: Dec 16, 2017 Discharge Disposition: Acute care facility (patient to report directly to [facility] ) Principal Diagnosis: Epigastric/RUQ pain, N/V Problems/Secondary Diagnoses: Gallbladder sludge ESRD s/p renal transplant on 11/18/2017 on immunosuppressants anemia of chronic kidney disease chronic duodenitis h/o esophageal ulcer & duodenal ulcer dilated cardiomyopathy w/ EF of 40-45%- RESOLVED, now EF of 50-55% grade II diastolic dysfunction pulmonary HTN mild tricuspid regurgitation HTN HLD gout Hypomagnesemia Immunizations: Have You Had Influenza Vaccine: Yes History of Tetanus Vaccine?: Unknown History of Pneumococcal: No History of Hepatitis B Vaccine: No Procedures: CHEST 2 VIEWS ROUTINE CLINICAL HISTORY: Atypical chest pain. History of kidney transplant. COMPARISON STUDY: April 21, 2017 FINDINGS: The heart remains enlarged. There is no failure. There is no focal pulmonary consolidation. There are no pleural effusions. There is a presumed bone island within the left anterior second rib.[ IMPRESSION: Cardiomegaly. No acute findings. Electronically signed by: Don Christianson M.D. 12/15/2017 6:39 AM Dictated Date/Time: 12/15/2017 6:39 AM The status of this report is Signed. Draft = Not yet reviewed or approved by Radiologist. Signed = Reviewed and approved by Radiologist. GALLBLADDER-ABD LIMITED CLINICAL HISTORY: 57 years-old Male presenting with elevated LFTs, chest pain, r/o gallstone. TECHNIQUE: Real-time grayscale and limited color Doppler ultrasound imaging of the abdomen limited to the right upper quadrant was performed. COMPARISON: CT from 01/04/2017. FINDINGS: Pancreas: Largely obscured due to overlying bowel gas. Liver: Hyperechogenic parenchyma with heterogeneous echotexture, likely indicating fibrosis or steatosis. The liver measures 17.7 cm in maximal sagittal dimension. No sonographic evidence of hepatic mass. Main portal vein patent with normal directional flow. Biliary: No intrahepatic biliary ductal dilatation. Common bile duct measures up to 3 mm in diameter. Gallbladder: Large amount of gallbladder sludge. The gallbladder is mildly distended measuring over 12 cm in length. No evidence of gallstones, gallbladder wall thickening, or pericholecystic fluid or inflammatory change. Right kidney: Highly atrophic not visualized. Ascites: None. Other: None. IMPRESSION: 1. Gallbladder contains a large amount of sludge and is mildly distended, which may be physiologic. No other findings to suggest cholecystitis. If there is continuing clinical concern for this diagnosis, nuclear medicine HIDA scan could be obtained. 2. Hyperechogenic and heterogeneous hepatic parenchyma could indicate underlying fibrosis or steatosis. Electronically signed by: Abimael Ashley M.D. 12/15/2017 2:38 PM Dictated Date/Time: 12/15/2017 2:34 PM The status of this report is Signed. Draft = Not yet reviewed or approved by Radiologist. Signed = Reviewed and approved by Radiologist. Interpretation Summary * Name: MYLA BARGER II Study Date: 12/15/2017 07:59 AM BP: 109/71 mmHg * Patient Location: [facility] HR: 80 * : 1960 (M/d/yyyy) Gender: Male Height: 72 in * Age: 57 yrs Ethnicity: [place] Weight: 215 lb * Ordering Physician: Radha Frey * Referring Physician: Self, Referred * Performed By: Elizabeth Santoro RDCS * * Reason For Study: CHEST PAIN * BSA: 2.2 m2 * -- Conclusions -- * Left ventricular systolic function is normal. * No regional wall motion abnormalities noted. * Ejection Fraction = 50-55%. * There is mild concentric left ventricular hypertrophy. * Diastolic dysfunction, Grade II (pseudonormalization pattern). * There is mild tricuspid regurgitation. Procedure Details * A complete two-dimensional transthoracic echocardiogram was performed (2D, M-mode, Doppler and color flow Doppler). Left Ventricle * The left ventricle is normal in size. * There is mild concentric left ventricular hypertrophy. * Left ventricular systolic function is normal. * Ejection Fraction = 50-55%. * No regional wall motion abnormalities noted. Right Ventricle * The right ventricle is grossly normal size. * The right ventricular systolic function is normal as assessed by tricuspid annular plane systolic excursion (TAPSE) (normal >1.5 cm). Atria * The left atrium is mildly dilated. * The right atrium is mildly dilated. * No ASD detected; PFO is not assessed. Mitral Valve * Mitral valve sclerosis without significant stenosis. * Significant mitral regurgitation is absent. Tricuspid Valve * The tricuspid valve anatomy is normal. * Tricuspid stenosis is absent. * There is mild tricuspid regurgitation. Aortic Valve * The aortic valve is tricuspid. The leaflet thickness if normal. There is no aortic stenosis, and no significant insufficiency. * Aortic valve sclerosis moderate, without significant aortic valvular stenosis. * No aortic regurgitation is present. Pulmonic Valve * The pulmonary valve is not well seen, but the Doppler examination is normal without significant regurgitation or stenosis. Great Vessels * The aortic root is normal size. * The pulmonary is not well visualized. Pericardium/Pleural * There is no pericardial effusion. Great Vessels * Normal inferior vena cava size and collapsability with sniff indicates a normal right atrial pressure of 3 mmHg Left Ventricular Diastolic Function * Diastolic dysfunction, Grade II (pseudonormalization pattern). Consultations: Cardiology- Dr. Lebron General surgery- Dr. Brayan MUKHERJEE- Amparo Head Medication Reconciliation Continued Medications: Acyclovir (Zovirax) 200 Mg Cap 400 MG PO BID, CAP Allopurinol (Zyloprim *) 300 Mg Tab 300 MG PO QAM, 0 Refills Atorvastatin (Lipitor) 20 Mg Tab 20 MG PO QAM, 0 Refills Carvedilol (Coreg) 12.5 Mg Tab 6.25 MG PO BIDM Mycophenolate Mofetil (Cellcept) 500 Mg Tab 500 MG PO QID, TAB Nystatin (Nystatin Suspension) 1 Ml Susp [id number] PO QID swish and swallow Pantoprazole (Protonix) 40 Mg Tab 40 MG PO BID, #30 TAB Prednisone (Prednisone) 10 Mg Tab 15 MG PO QAM, TAB Prednisone Tab (Prednisone) 10 Mg Tab 10 MG PO DIRECTED, TAB on 12/17 to decrease from 15mg to 10 mg Prednisone (Prednisone) 5 Mg Tab 5 MG PO DIRECTED, TAB decrease dose to 5 mg on 12/30/17 Sulfamethoxazole-Trimethoprim (Bactrim 400MG/80MG) 1 Tab Tab 1 TAB PO DAILY, TAB Tacrolimus (Prograf) 1 Mg Cap 2 MG PO QAM, CAP Tacrolimus (Prograf) 1 Mg Cap 1 MG PO QPM, CAP Tamsulosin Hcl (Flomax) 0.4 Mg Cap 0.4 MG PO HS, CAP Discharge Exam Review of Systems: Constitutional: No fever, No chills, No sweats, No weakness, No fatigue Eyes: No worsening of vision ENT: No hearing loss Respiratory: No cough, No shortness of breath, No hemoptysis Cardiovascular: No chest pain, No edema, No palpitations Abdomen: No pain, No nausea, No vomiting, No diarrhea, No constipation Musculoskeletal: No joint pain, No muscle pain, No swelling, No calf pain Genitourinary - Male: No hematuria, No dysuria Neurologic: No weakness, No numbness/tingling Psychiatric: No depression symptoms, No anxiety Endocrine: No fatigue Hematologic / Lymphatic: No abnormal bleeding/bruising Integumentary: No rash, No itch, No new/changing skin lesions Physical Exam: General Appearance: no apparent distress Eyes: normal inspection, PERRL ENT: hearing grossly normal Neck: supple Respiratory/Chest: lungs clear, no respiratory distress, no accessory muscle use Cardiovascular: regular rate, rhythm, + systolic murmur Abdomen / GI: normal bowel sounds, non tender, soft, + pertinent finding ( MISBAH drain RLQ w/ serous output) Extremities: no calf tenderness, no pedal edema Neurologic/Psychiatric: alert, normal mood/affect, oriented x 3 Skin: normal color, warm/dry, no rash Hospital Course Admission H&P: Patient is a pleasant 57 y/o male, with PMHx of ESRD s/p renal transplant on 11/18/2017 on immunosuppressants, chronic duodenitis, esophageal ulcer & duodenal ulcer, dilated cardiomyopathy w/ EF of 40-45%, pulmonary HTN, HTN, HLD, anemia of chronic kidney disease, and gout, who presented to the ED because of epigastric/RUQ pain that woke him from his sleep at 0400. Patient did have associate N/V. Currently, he is pain free. He does still have his gallbladder- denies any issues. Trop mildly elevated at 0.421, but chronically elevated around 0.2. He had a negative stress test prior to undergoing kidney transplant. Patient denies any fever, chills, sweats, lightheadedness, dizziness , vision changes, CP, palpitations, edema, SOB, wheezing, cough, diarrhea, urinary symptoms, melena, numbness/tingling, weakness, muscle/joint pain, anxiety/depression, active bleeding, or new skin discoloration/changes. Physical Exam Vital Signs Date Time Temp Pulse Resp B/P (MAP) Pulse Ox O2 Delivery O2 Flow Rate FiO2 12/15/17 06:35 70 18 109/71 100 Room Air 12/15/17 06:13 100 Room Air 12/15/17 06:12 72 12/15/17 06:08 36.6 77 18 112/70 98 Room Air General Appearance: no apparent distress Head: normocephalic, atraumatic Eyes: normal inspection, PERRL ENT: hearing grossly normal Neck: supple Respiratory/Chest: lungs clear, no respiratory distress, no accessory muscle use Cardiovascular: regular rate, rhythm, + systolic murmur Abdomen/GI: normal bowel sounds, soft, + tenderness (epigastic/RUQ), + pertinent finding (MISBAH drain RLQ w/ serous output ) Back: normal inspection Extremities/Musculoskelatal: no calf tenderness, no pedal edema Neurologic/Psych: alert, normal mood/affect, oriented x 3 Skin: normal color, warm/dry, no rash Patient is a pleasant 57 y/o male, with PMHx of ESRD s/p renal transplant on 09/2017 on immunosuppressants, chronic duodenitis, esophageal ulcer & duodenal ulcer, dilated cardiomyopathy w/ EF of 40-45%, pulmonary HTN, HTN, HLD, anemia of chronic kidney disease, and gout, who presented to the ED because of epigastric/RUQ pain that woke him from his sleep at 0400. Epigastric/RUQ pain- ACS r/o vs gallbladder disease vs GERD: - Admit to tele for cardiac monitoring- no acute events - Trend cardiac enzymes- 0.468 - EKG QAM and PRN for chest pain - Nitro PRN for pain - ECHO- EF 50-55%, grade II diastolic dysfunction, mild LVH, no wall abnormalities - Elevated LFTs- WORSENING- RUQ US w/ large amounts of sludge, no evidence of cholecystitis - Received Fentanyl on 12/15 in ED- cannot have HIDA for 3 days - Lipase WNL - UA w/ nitrates- IV Zosyn started on 12/16 - IV Protonix daily while NPO - NPO pending further workup - Consult cardiology, appreciate recommendations- does not believe ACS - Consult general surgery, appreciate recommendations- stable for transfer to [facility] - Consult GI, appreciate recommendations- stable for transfer to [facility] - Due to symptoms, worsening LFTs, and recent renal transplant, [facility] would like patient to be transferred to their facility Hypomagnesemia- RESOLVED: Replace w/ IV Mag 1 gm x1- follow mag level and replace PRN ESRD s/p renal transplant on 11/18/2017 on immunosuppressants, anemia of chronic kidney disease- follows w/ Dr. Becerra: - Continue Cellcept 500 mg WID, Acyclovir 400 mg BID, Prednisone 15 mg daily ( decreases to 10 mg on 12/17, then 5 mg on 12/30), Prograf 2 mg QAM and 1 mg HS, Bactrim - H&H- STABLE- baseline around 10- hgb 10.2 today, continue to follow - Pancytopenia- STABLE- continue to follow Dilated cardiomyopathy w/ EF of 40-45%- resolved now 50-55%, pulmonary HTN, HTN , HLD- follows w/ Dr. Lebron: Continue Coreg 6.25 mg BID, Lipitor 20 mg HS Gout: Continue Allopurinol Chronic duodenitis, esophageal ulcer & duodenal ulcer- follows w/ Case: IV Protonix while NPO DVT prophylaxis: TEDs/SCDs; hold chemical anticoagulation due to pancytopenia/? need for procedure Code status: LEVEL I, FULL Dispo: Discharge- patient to report directly to [facility] Total Time Spent: Greater than 30 minutes This includes examination of the patient, discharge planning, medication reconciliation, and communication with other providers. Discharge Instructions Please refer to the electronic Patient Visit Report (Discharge Instructions) for additional information. Follow-Up Follow-up with [facility] provider within 24 hours Additional Copies To Nakul Becerra M.D.
[2017-12-15 15:40] VITALS: BP 99/65; PULSE 78; TEMP 36.8; O2SAT 99
--- NOTE | 2017-12-15 15:42 | Nephrology Consultation ---
Nephrology Consultation Date & Providers Date of Consultation: Dec 15, 2017. Primary Care Provider: Nakul Becerra M.D. Referring Provider: Reason for Consultation Evaluation management for chronic kidney disease status post recent disease donor renal transplant History of Present Illness Nura is a 57-year-old gentlemen with past medical history significant for end- stage renal disease, recent renal transplant, history of cardiomyopathy, hypertension admitted to the hospital with chest pain. Nephrology consult was requested to manage chronic kidney disease and immunosuppressant medication in the setting of recent renal transplant. Electronic medical records including labs and imaging are reviewed in detail during patient's visit. Patient was seen with his family at bedside including his Lois, parents and brother. Nura has end-stage renal disease presumably secondary to chronic glomerulonephritis ( never had a renal biopsy), he was on hemodialysis via left upper arm AV fistula at [facility] until recently. He received a donor renal transplant on the 11/18/[address] [facility]. Transplant was uncomplicated and he has been doing well at home, tolerating immunosuppressant medications. Renal function has been progressively improving, creatinine was 2.0, electrolyte acceptable. His last Prograf level on 12/09/17 as per the transplant center his goal Prograf trough was relatively low. Currently he is on tacrolimus 2 mg in a.m. and 1 mg in p.m., CellCept 500 mg 4 times a day, prednisone 15 mg daily, on taper dose. He has been making decent amount of urine, blood pressure and volume status has been acceptable. He has history of cardiomyopathy with ejection fraction 40-45% and moderate to severe pulmonary hypertension. He presented to the hospital with an episode of chest and epigastric discomfort for last night which currently totally resolved. EKG with no new changes. Troponin was mildly elevated which was considered his baseline, chronically elevated. He was evaluated by Cardiology and considered the epigastric and chest pain was noncardiac in origin. He has been having nausea and vomiting, LFTs are mildly elevated. Her right upper quadrant ultrasound was just done which showed gallbladder sludge but no definitive cholecystitis. Allergies Coded Allergies: No Known Allergies (Verified , 12/15/17) Inpatient Medications Current Inpatient Medications Medications (Trade) Dose Ordered Sig/Inés Route Start Time Stop Time Status Last Admin Dose Admin Acetaminophen (Tylenol Tab) 650 mg Q4H PRN PO 3/28/18 08:45 01/14/18 08:44 Al Hydrox/Mg Hydrox/Simethicone (Maalox Max Susp) 15 ml Q4H PRN PO 12/15/17 08:45 01/14/18 08:44 Magnesium Hydroxide (Milk Of Magnesia Susp) 30 ml Q12H PRN PO 12/15/17 08:45 01/14/18 08:44 Ondansetron HCl (Zofran Inj) 4 mg Q6H PRN IV 12/15/17 08:45 01/14/18 08:44 Nitroglycerin (Nitrostat Tab) 0.4 mg UD PRN SL 12/15/17 08:45 01/14/18 08:44 Polyethylene (Miralax Powder Packet) 17 gm DAILY PRN PO 12/15/17 08:45 01/14/18 08:44 Magnesium Sulfate 1 gm/Prmx 100 ml @ 100 mls/hr NOW ONCE IV 12/15/17 12:15 12/15/17 13:14 Hydromorphone HCl (Dilaudid Inj) 0.5 mg Q3H PRN IV 12/15/17 08:45 12/29/17 08:44 Acyclovir (Zovirax Cap) 400 mg BID PO 12/15/17 09:00 01/14/18 08:59 UNV Allopurinol (Zyloprim Tab) 300 mg QAM PO 12/15/17 09:00 01/14/18 08:59 UNV Carvedilol (Coreg Tab) 6.25 mg BIDM PO 12/15/17 16:45 01/14/18 17:59 UNV Mycophenolate Mofetil (Cellcept Cap) 500 mg QID PO 12/15/17 09:00 01/14/18 08:59 UNV Nystatin (Mycostatin Susp) 1 ml QID PO 12/15/17 09:00 12/25/17 08:59 UNV Prednisone (PredniSONE TAB) 5 mg DAILY PO 12/30/17 09:00 01/29/18 08:59 UNV Prednisone (PredniSONE TAB) 15 mg QAM PO 12/15/17 09:00 12/16/17 21:00 UNV Prednisone (PredniSONE TAB) 10 mg DAILY PO 12/17/17 09:00 12/29/17 21:00 UNV Trimethoprim/ Sulfamethoxazole (Septra 400/80MG Tab) 1 tab DAILY PO 12/15/17 09:00 01/14/18 08:59 UNV Tacrolimus (Prograf Cap) 1 mg QPM PO 12/15/17 21:00 01/14/18 20:59 UNV Tacrolimus (Prograf Cap) 2 mg QAM PO 12/15/17 09:00 01/14/18 08:59 UNV Tamsulosin HCl (Flomax Cap) 0.4 mg HS PO 12/15/17 21:00 01/14/18 20:59 UNV Pantoprazole Sodium 40 mg/ Syringe 10 ml @ 5 mls/min DAILY@11 IV 12/16/17 11:00 01/15/18 10:59 UNV Sodium Chloride 1,000 ml @ 75 mls/hr [id number] IV 12/15/17 11:30 01/14/18 11:29 UNV Family History Diabetes mellitus FH: heart disease Kidney disease Social History Smoking Status: Never Smoker Drug Use: none Marital Status: Housing Status: lives with significant other Occupation: employed Review of Systems A complete review of systems was performed. Pertinent positives are noted above. All other systems are negative. Physical Exam Date Time Temp Pulse Resp B/P (MAP) Pulse Ox O2 Delivery O2 Flow Rate FiO2 12/15/17 11:30 36.6 92 16 109/64 100 Room Air 12/15/17 10:55 76 18 98 12/15/17 09:16 78 12/15/17 09:00 78 18 110/71 98 Room Air 12/15/17 06:35 70 18 109/71 100 Room Air 12/15/17 06:13 100 Room Air 12/15/17 06:12 72 12/15/17 06:08 36.6 77 18 112/70 98 Room Air GENERAL: Middle-aged male, AAA x 3, pleasant, healthy-appearing, not in any distress. HEENT: Atraumatic, normocephalic. NECK: Supple, no JVD, no carotid bruit appreciated. ENT: No sinus tenderness MOUTH and THROAT: Moist oral mucosa, no oral ulcer or pharyngeal erythema RESPIRATORY: Normal breathing efforts, no accessory muscle use, clear to auscultation bilaterally, no wheezes or rales. CARDIOVASCULAR: S1, S2 normal, rate rhythm regular. ABDOMEN: Soft, tenderness in right upper quadrant, positive bowel sound. MUSCULOSKELETAL: No CVA tenderness. No joint swelling, erythema or tenderness. Normal range of motion. SKIN: No skin rash EXTREMITY: No lower extremity edema NEURO: No gross focal neurological deficit, speech fluent. PSYCHIATRY: Normal mood and judgment Laboratory Results Last 24 Hours Test 12/15/17 06:21 12/15/17 07:09 White Blood Count 3.75 K/uL Red Blood Count 2.94 M/uL Hemoglobin 10.2 g/dL Hematocrit 28.5 % Mean Corpuscular Volume 96.9 fL Mean Corpuscular Hemoglobin 34.7 pg Mean Corpuscular Hemoglobin Concent 35.8 g/dl Platelet Count 98 K/uL Mean Platelet Volume 9.8 fL Neutrophils (%) (Auto) 87.2 % Lymphocytes (%) (Auto) 9.6 % Monocytes (%) (Auto) 0.3 % Eosinophils (%) (Auto) 2.1 % Basophils (%) (Auto) 0.3 % Neutrophils # (Auto) 3.27 K/uL Lymphocytes # (Auto) 0.36 K/uL Monocytes # (Auto) 0.01 K/uL Eosinophils # (Auto) 0.08 K/uL Basophils # (Auto) 0.01 K/uL RDW Standard Deviation 50.5 fL RDW Coefficient of Variation 14.4 % Immature Granulocyte % (Auto) 0.5 % Immature Granulocyte # (Auto) 0.02 K/uL Platelet Estimate DECREASED Sodium Level 138 mmol/L Potassium Level mmol/L 4.0 mmol/L Chloride Level 109 mmol/L Carbon Dioxide Level 21 mmol/L Anion Gap 8.0 mmol/L Blood Urea Nitrogen 40 mg/dl Creatinine 2.06 mg/dl Est Creatinine Clear Calc Drug Dose 48.5 ml/min Estimated GFR () 40.5 Estimated GFR (Non- 35.0 BUN/Creatinine Ratio 19.2 Random Glucose 130 mg/dl Calcium Level 9.1 mg/dl Magnesium Level mg/dl 1.6 mg/dl Total Bilirubin 0.9 mg/dl Direct Bilirubin mg/dl 0.6 mg/dl Aspartate Amino Transf (AST/SGOT) U/L 269 U/L Alanine Aminotransferase (ALT/SGPT) 117 U/L Alkaline Phosphatase 196 U/L Total Creatine Kinase U/L 29 U/L Troponin I 0.421 ng/ml Total Protein 5.6 gm/dl Albumin 2.8 gm/dl Creatine Kinase MB 2.4 ng/ml Creatine Kinase MB Ratio Lipase 144 U/L Impression 57-year-old gentlemen with end-stage renal disease status post recent donor renal transplant on 11/18/2017, uncomplicated, has been doing well since the transplant, renal function continues to improve, creatinine came down to 2.0 , electrolyte acceptable. Blood pressure and volume status acceptable. He has been tolerating immunosuppressants, on tacrolimus 2 mg in a.m., 1 mg p.m., CellCept and taper dose of prednisone. Also on Bactrim and acyclovir for prophylaxis. Presented to the hospital with an episode of epigastric and chest pain, no EKG changes, currently symptom resolved, troponin remain mildly elevated which is chronic. Evaluated by Cardiology. Lab showed elevated LFT and her ultrasound was concerning for gallbladder sludge without definitive cholecystitis. Recommendations --continue on current dose of Prograf ,will check another trough level in a.m., goal trough 6-8 --continue CellCept 500 4 times a day and Prednisone 50 mg daily --initially patient was having significant nausea and vomiting, there was concern that patient may not tolerate oral anti rejection medication, contacted with the transplant center and the transplant surgeon suggested patient should be transferred to [facility] since he has a new transplant. However after discussion with the patient after while patient felt he was feeling better, nausea and vomiting resolved. Transplant center was contacted again and suggested since patient was feeling better he can stay for now and they will schedule for elective cholecystectomy next week. Patient already scheduled to go for transplant follow-up next Wednesday. If there is any clinical deterioration or patient is unable to take his anti rejection medications will transfer him as our pharmacy does not carry any IV tacrolimus at this point. Will follow Thank you for allowing me to participate in your patient's care. It was a pleasure to see Nura
[2017-12-15] MEDS: CARVEDILOL 6.25 MG TAB PO SCH (16:45)
[2017-12-15] MEDS ORDERED: TACROLIMUS 1 MG CAP PO SCH (21:00)
[2017-12-15] MEDS ORDERED: TAMSULOSIN HCL 0.4 MG CAP PO SCH (21:00)
[2017-12-15 22:48] LABS: CKMB 2.4 ng/ml (0.5-3.6)
[2017-12-16] VITALS (7 sets, daily range): BP systolic 95–112; BP diastolic 57–74; PULSE 66–78; TEMP 36.6–37; O2SAT 97–100
[2017-12-16] MEDS: SODIUM CHLORIDE 0.9% 1000ML 1,000 ML IV SCH (02:15)
[2017-12-16 06:48] LABS: HEMATOCRIT 27.2 % (42-52); HEMOGLOBIN 9.6 g/dL (14.0-18.0); MEAN CELL VOLUME 97.1 fL (80-100); MEAN CORPUSCULAR HEMOGLOBIN 34.3 pg (25-34); MEAN CORPUSCULAR HGB CONC 35.3 g/dl (32-36); RED CELL DISTRIBUTION WIDTH CV 14.6 % (11.5-14.5); RED CELL DISTRIBUTION WIDTH SD 51.5 fL (36.4-46.3); WHITE BLOOD COUNT 4.56 K/uL (4.8-10.8)
[2017-12-16 06:52] LABS: MEAN PLATELET VOLUME 10.1 fL (7.4-10.4); PLATELET COUNT 96 K/uL (130-400)
[2017-12-16 07:20] LABS: ALBUMIN 2.5 gm/dl (3.4-5.0); CALCIUM 9.1 mg/dl (8.5-10.1); CREATININE 2.12 mg/dl (0.60-1.40); POTASSIUM 4.6 mmol/L (3.5-5.1)
[2017-12-16 07:22] LABS: TOTAL PROTEIN 5.3 gm/dl (6.4-8.2)
[2017-12-16] MEDS: CARVEDILOL 6.25 MG TAB PO SCH (07:30)
[2017-12-16] MEDS: ALLOPURINOL 300 MG TAB PO SCH (08:13)
[2017-12-16] MEDS: ACYCLOVIR 200 MG CAP PO SCH (08:14)
[2017-12-16] MEDS: SULFAMETHOXAZOLE/TRIMETHOPRIM 400/80MG TAB PO SCH (08:14)
[2017-12-16] MEDS: MYCOPHENOLATE MOFETIL 250 MG CAP (CELLCEPT) PO SCH ×2 (08:14→11:59)
[2017-12-16] MEDS: NYSTATIN SUSP 500,000 U/5 ML UDC PO SCH ×2 (08:14→11:59)
[2017-12-16] MEDS ORDERED: PIPERACILL/TAZOBAC CONSULT ACTIVE PRN (08:30)
--- NOTE | 2017-12-16 09:31 | Gastrointestinal Consultation ---
Gastrointestinal Consultation Date of Consultation: Dec 16, 2017 Attending Physician: Gina Moreira PA-C Consulting Physician: Dr. Chaves/LISSET Bruce Reason for Consultation: Elevated lfts History of Present Illness Patient is a 56 year old male with a history of end-stage renal disease presumably from glomerulonephritis previously receiving dialysis approximately 3 weeks status post renal transplant. Patient reports having an uncomplicated postoperative course until yesterday morning. He was awaken from sleep with a sudden onset of right upper quadrant pain. He states "I thought I was having a heart attack or a bad case of heartburn". Concerned, he presented to the ER for further evaluation. On arrival, he was given a dose of Morphine IV. Afterwards, patient states he became nauseated and vomited. Work up at that time time included a biliary ultrasound which demonstrated a sludge filled and distended gall bladder without evidence of cholelithiasis, acute cholecystitis or biliary ductal dilation. Transaminases were mildly elevated at that time as well as his troponin. Cardiology has evaluated the patient and no acute cardiac process is suspected as serial ECGs have been unremarkable. Elevated troponin is suspected a chronic finding. Liver panel has further elevated since admission and was as follows: TB 2.3, DB 1.3, AST 576, ALT 929, and ALP 306. Lipase was normal at 92. He is scheduled for a MRCP today. Since admission, his nausea with vomiting and abdominal pain have resolved. Patient denies any pruritus, jaundice or other GI complaints. Patient is afebrile and has been started on IV Zosyn. Past Medical/Surgical History Medical Problems: (1) Elevated troponin Status: Acute (2) Kidney disease Status: Chronic (3) Substernal precordial chest pain Status: Acute Social History Problems: (1) Renal transplant recipient Status: Acute Past Medical History: 1. Hypertension 2. ESRD 3. Duodenal ulcer 4. Diverticulosis Past Surgical History: 1. EGD 2. Colonoscopy 3. Knee arthroscopy 4. AV fistula 5. Renal transplant Family History Diabetes mellitus FH: heart disease Kidney disease Negative for GI malignancy or IBD Social History Smoking Status: Never Smoker Alcohol Use: none Drug Use: none Marital Status: Occupation Status: employed Allergies Coded Allergies: No Known Allergies (Verified , 12/15/17) Current Medications Home Meds and Scripts Medications Dose Route/Sig Max Daily Dose Days Date Category Dose Instructions Cellcept (Mycophenolate Mofetil) 500 Mg Tab 500 Mg PO QID 12/15/17 Reported Prednisone 5 Mg Tab 5 Mg PO DIRECTED 12/15/17 Reported decrease dose to 5 mg on 12/30/17 Prednisone 10 Mg Tab 10 Mg PO DIRECTED 12/15/17 Reported on 12/17 to decrease from 15mg to 10 mg Prednisone 10 Mg Tab 15 Mg PO QAM 12/15/17 Reported Prograf (Tacrolimus) 1 Mg Cap 1 Mg PO QPM 12/15/17 Reported Prograf (Tacrolimus) 1 Mg Cap 2 Mg PO QAM 12/15/17 Reported Zovirax (Acyclovir) 200 Mg Cap 400 Mg PO BID 12/15/17 Reported Nystatin Suspension (Nystatin) 1 Ml Susp 500,000 PO QID 12/15/17 Reported swish and swallow Bactrim 400MG/80MG (Sulfamethoxazole-Trimethoprim) 1 Tab Tab 1 Tab PO DAILY 12/15/17 Reported Flomax (Tamsulosin Hcl) 0.4 Mg Cap 0.4 Mg PO HS 12/15/17 Reported Protonix (Pantoprazole Sodium) 40 Mg Tab 40 Mg PO BID 12/15/17 Reported Coreg (Carvedilol) 12.5 Mg Tab 6.25 Mg PO BIDM 04/23/15 Reported Lipitor (Atorvastatin Calcium) 20 Mg Tab 20 Mg PO QAM 10/01/08 Reported Zyloprim * (Allopurinol) 300 Mg Tab 300 Mg PO QAM 10/01/08 Reported Review of Systems Constitutional: + see HPI Eyes: No problem reported ENT: No problem reported Respiratory: No cough, No shortness of breath Cardiac: No chest pain, No palpitations Abdomen: + see HPI Musculoskeletal: No joint pain, No swelling Male : No problem reported Neuro: No problem reported Psych: No problem reported Skin: No problem reported Physical Exam Date Time Temp Pulse Resp B/P (MAP) Pulse Ox O2 Delivery O2 Flow Rate FiO2 12/16/17 08:00 98 Room Air 12/16/17 07:42 36.8 66 16 95/57 (70) 98 Room Air 12/16/17 05:51 36.6 78 15 98/64 (75) 97 12/16/17 04:00 Room Air 12/16/17 00:02 37.0 75 14 106/58 (74) 97 Room Air 12/16/17 00:00 Room Air 12/15/17 16:00 Room Air 12/15/17 15:40 36.8 78 20 99/65 (76) 99 Room Air 12/15/17 11:30 36.6 92 16 109/64 100 Room Air 12/15/17 10:55 76 18 98 12/15/17 09:16 78 General Appearance: no apparent distress Eyes: EOMI ENT: hearing grossly normal Neck: supple Respiratory/Chest: lungs clear, normal breath sounds, no respiratory distress Cardiovascular: regular rate, rhythm, + systolic murmur Abdomen: normal bowel sounds, non tender, soft, + pertinent finding (RLQ scar with MISBAH drain intact) Extremities: no pedal edema Neurologic/Psych: alert, normal mood/affect, oriented x 3 Skin: warm/dry Laboratory Results Last 24 Hours Test 12/15/17 13:37 12/15/17 21:55 12/16/17 02:00 12/16/17 06:05 Creatine Kinase MB 1.9 ng/ml 2.4 ng/ml Creatine Kinase MB Ratio Troponin I 0.453 ng/ml 0.468 ng/ml Urine Color DK YELLOW Urine Appearance CLEAR Urine pH 5.0 Urine Specific [place] 1.019 Urine Protein 1+ Urine Glucose (UA) 1+ Urine Ketones NEG Urine Occult Blood TRACE Urine Nitrite POS Urine Bilirubin 1+ Urine Urobilinogen NEG Urine Leukocyte Esterase NEG Urine WBC (Auto) 1-5 /hpf Urine RBC (Auto) 0-4 /hpf Urine Hyaline Casts (Auto) 1-5 /lpf Urine Epithelial Cells (Auto) 0-5 /lpf Urine Bacteria (Auto) NEG Urine Yeast (Auto) White Blood Count 4.56 K/uL Red Blood Count 2.80 M/uL Hemoglobin 9.6 g/dL Hematocrit 27.2 % Mean Corpuscular Volume 97.1 fL Mean Corpuscular Hemoglobin 34.3 pg Mean Corpuscular Hemoglobin Concent 35.3 g/dl RDW Standard Deviation 51.5 fL RDW Coefficient of Variation 14.6 % Platelet Count 96 K/uL Mean Platelet Volume 10.1 fL Sodium Level 138 mmol/L Potassium Level 4.6 mmol/L Chloride Level 108 mmol/L Carbon Dioxide Level 21 mmol/L Anion Gap 8.0 mmol/L Blood Urea Nitrogen 33 mg/dl Creatinine 2.12 mg/dl Est Creatinine Clear Calc Drug Dose 47.0 ml/min Estimated GFR () 39.1 Estimated GFR (Non- 33.8 BUN/Creatinine Ratio 15.5 Random Glucose 105 mg/dl Calcium Level 9.1 mg/dl Magnesium Level 1.9 mg/dl Total Bilirubin 2.3 mg/dl Direct Bilirubin 1.3 mg/dl Aspartate Amino Transf (AST/SGOT) 576 U/L Alanine Aminotransferase (ALT/SGPT) 929 U/L Alkaline Phosphatase 306 U/L Total Protein 5.3 gm/dl Albumin 2.5 gm/dl Globulin 2.8 gm/dl Albumin/Globulin Ratio 0.9 Lipase 92 U/L Impression Patient is a 57 year old male with a history of ESRD status post renal transplant admitted with acute onset of RUQ pain and n/v (now resolved) with abnormal gall bladder ultrasound and elevated liver panel. Plan Due to worsening transaminitis, would recommend this patient be transferred to [facility] for continued observation and medical management. The patient would be too high risk for any local intervention in the event MRCP would be positive and he would require urgent ERCP/cholecystectomy. Recommend continued supportive medical management with IV antibiotics as prescribed. Agree with LISSET Bruce as above Patient was discharged prior to my evaluation.
[2017-12-16] MEDS ORDERED: PIPERACILL/TAZOBAC IV 3.375 GM in DEXTROSE 5% 100ML IV ONE (09:45)
--- NOTE | 2017-12-16 09:58 | CARDIOLOGY PROGRESS NOTE ---
DATE: 12/16/2017 SUBJECTIVE: Mr. Carbajal is ambulating within his room without complaints of chest pain, dyspnea, or abdominal discomfort. We have discussed his transfer to [facility] for attention directed to his gallbladder. OBJECTIVE: VITAL SIGNS: Blood pressure is 100/60 with a regular pulse of 66. Respiratory rate is 18. The patient is afebrile at 36.8 degrees Celsius. Saturation is 98% on room air. NECK: Supple with full carotid upstrokes. No carotid bruits. Jugular venous pressure is flat at 90 degrees. There is no thyromegaly. CARDIOVASCULAR: Reveals a regular rhythm with normal S1 and S2. No S3 or S4, or murmurs are noted. LUNGS: Clear without rales, rhonchi, or wheezes. ABDOMEN: Soft without bruits. A MISBAH drain in place. EXTREMITIES: Reveal no edema. LABORATORY DATA: CBC notes hemoglobin of 9.6, hematocrit 27.2, white count 4.5, platelet count 96,000. Electrolytes note a sodium of 138, potassium 4.6, chloride 108, bicarb 21, BUN 33, creatinine 2.12, glucose 105. Troponin I level 0.468. CK is 29 with an MB fraction of 1.9. EKG notes sinus rhythm with occasional PVCs. IMPRESSION AND PLAN: 1. Atypical chest discomfort -- not cardiac in origin. Troponin I level is chronically elevated. CK is normal. Left ventricular systolic function also normal without wall motion abnormality. No further cardiac evaluation necessary. 2. Transient mild cardiomyopathy -- resolved. Cardiac catheterization in March 2017 noted only luminal irregularities. 3. Severe pulmonary hypertension. 4. Status post renal transplant. 5. Gallbladder abnormality -- patient to be transferred to [facility] for further evaluation realizing his recent renal transplant.
--- NOTE | 2017-12-16 10:20 | Nephrology Progress Note ---
Nephrology Progress Note Date of Service Dec 16, 2017. Chief Complaint F/U for chronic kidney disease status post recent live donor renal transplant Subjective Nura was seen and examined in his room this am. Overall feeling better, N/V resolved. BP, renal function stable. LFT worsening. Review of Systems A complete review of systems was performed. Pertinent positives are noted above. All other systems are negative. Vital Signs Last 8 Hrs Date Time Temp Pulse Resp B/P (MAP) Pulse Ox O2 Delivery O2 Flow Rate FiO2 12/16/17 08:00 98 Room Air 12/16/17 07:42 36.8 66 16 95/57 (70) 98 Room Air 12/16/17 05:51 36.6 78 15 98/64 (75) 97 12/16/17 04:00 Room Air Last Recorded Weight Weight (Kilograms): 97.300 Physical Exam GENERAL: middle aged the male, AAA x 3, pleasant, healthy-appearing, not in any distress. NECK: Supple, no JVD. RESPIRATORY: Normal breathing efforts, no accessory muscle use, clear to auscultation bilaterally, no wheezes or rales. CARDIOVASCULAR: S1, S2 normal, rate rhythm regular. ABDOMEN: soft, allograft at Rt LQ non tender, MISBAH drain with serous collection EXTREMITY: No lower extremity edema NEURO: speech fluent. PSYCHIATRY: Normal mood and judgment Family History Diabetes mellitus FH: heart disease Kidney disease Social History Smoking Status: Never smoker Drug Use: none Marital Status: Housing Status: lives with significant other Occupation: employed Laboratory Results Past 24 Hours 12/16/17 06:05 12/16/17 06:05 Test 12/15/17 13:37 12/15/17 21:55 12/16/17 02:00 12/16/17 06:05 Creatine Kinase MB 1.9 ng/ml (0.5-3.6) 2.4 ng/ml (0.5-3.6) Creatine Kinase MB Ratio (0-3.0) (0-3.0) Troponin I 0.453 ng/ml (0-0.045) 0.468 ng/ml (0-0.045) Urine Color DK YELLOW Urine Appearance CLEAR (CLEAR) Urine pH 5.0 (4.5-7.5) Urine Specific [place] 1.019 (1.000-1.030) Urine Protein 1+ (NEG) Urine Glucose (UA) 1+ (NEG) Urine Ketones NEG (NEG) Urine Occult Blood TRACE (NEG) Urine Nitrite POS (NEG) Urine Bilirubin 1+ (NEG) Urine Urobilinogen NEG (NEG) Urine Leukocyte Esterase NEG (NEG) Urine WBC (Auto) 1-5 /hpf (0-5) Urine RBC (Auto) 0-4 /hpf (0-4) Urine Hyaline Casts (Auto) 1-5 /lpf (0-5) Urine Epithelial Cells (Auto) 0-5 /lpf (0-5) Urine Bacteria (Auto) NEG (NEG) Urine Yeast (Auto) (NONE PRSENT) Red Blood Count 2.80 M/uL (4.7-6.1) Mean Corpuscular Volume 97.1 fL (80-100) Mean Corpuscular Hemoglobin 34.3 pg (25-34) Mean Corpuscular Hemoglobin Concent 35.3 g/dl (32-36) RDW Standard Deviation 51.5 fL (36.4-46.3) RDW Coefficient of Variation 14.6 % (11.5-14.5) Mean Platelet Volume 10.1 fL (7.4-10.4) Anion Gap 8.0 mmol/L (3-11) Est Creatinine Clear Calc Drug Dose 47.0 ml/min Estimated GFR () 39.1 Estimated GFR (Non- 33.8 BUN/Creatinine Ratio 15.5 (10-20) Calcium Level 9.1 mg/dl (8.5-10.1) Magnesium Level 1.9 mg/dl (1.8-2.4) Total Bilirubin 2.3 mg/dl (0.2-1) Direct Bilirubin 1.3 mg/dl (0-0.2) Aspartate Amino Transf (AST/SGOT) 576 U/L (15-37) Alanine Aminotransferase (ALT/SGPT) 929 U/L (12-78) Alkaline Phosphatase 306 U/L (45-117) Total Protein 5.3 gm/dl (6.4-8.2) Albumin 2.5 gm/dl (3.4-5.0) Globulin 2.8 gm/dl (2.5-4.0) Albumin/Globulin Ratio 0.9 (0.9-2) Lipase 92 U/L (73-393) Allergies Coded Allergies: No Known Allergies (Verified , 12/15/17) Medications Current Inpatient Medications Medications (Trade) Dose Ordered Sig/Inés Route Start Time Stop Time Status Last Admin Dose Admin Acetaminophen (Tylenol Tab) 650 mg Q4H PRN PO 12/15/17 08:45 01/14/18 08:44 12/15/17 13:48 650 MG Al Hydrox/Mg Hydrox/Simethicone (Maalox Max Susp) 15 ml Q4H PRN PO 12/15/17 08:45 01/14/18 08:44 Magnesium Hydroxide (Milk Of Magnesia Susp) 30 ml Q12H PRN PO 12/15/17 08:45 01/14/18 08:44 Ondansetron HCl (Zofran Inj) 4 mg Q6H PRN IV 12/15/17 08:45 01/14/18 08:44 12/15/17 13:44 4 MG Nitroglycerin (Nitrostat Tab) 0.4 mg UD PRN SL 12/15/17 08:45 01/14/18 08:44 Polyethylene (Miralax Powder Packet) 17 gm DAILY PRN PO 12/15/17 08:45 01/14/18 08:44 Hydromorphone HCl (Dilaudid Inj) 0.5 mg Q3H PRN IV 12/15/17 08:45 12/29/17 08:44 Acyclovir (Zovirax Cap) 400 mg BID PO 12/15/17 09:00 01/14/18 08:59 12/16/17 08:14 400 MG Allopurinol (Zyloprim Tab) 300 mg QAM PO 12/15/17 09:00 01/14/18 08:59 12/16/17 08:13 300 MG Carvedilol (Coreg Tab) 6.25 mg BIDM PO 12/15/17 16:45 01/14/18 17:59 Mycophenolate Mofetil (Cellcept Cap) 500 mg QID PO 12/15/17 13:00 01/14/18 12:59 12/16/17 08:14 500 MG Nystatin (Mycostatin Susp) 5 ml QID PO 12/15/17 13:30 12/25/17 13:29 12/16/17 08:14 5 ML Prednisone (PredniSONE TAB) 5 mg DAILY PO 12/30/17 09:00 01/29/18 08:59 Prednisone (PredniSONE TAB) 15 mg QAM PO 12/15/17 09:00 12/16/17 21:00 12/16/17 08:14 15 MG Prednisone (PredniSONE TAB) 10 mg DAILY PO 12/17/17 09:00 12/29/17 21:00 Trimethoprim/ Sulfamethoxazole (Septra 400/80MG Tab) 1 tab DAILY PO 12/15/17 09:00 01/14/18 08:59 12/16/17 08:14 1 TAB Tacrolimus (Prograf Cap) 1 mg QPM PO 12/15/17 21:00 01/14/18 20:59 12/15/17 21:00 1 MG Tacrolimus (Prograf Cap) 2 mg QAM PO 12/15/17 09:00 01/14/18 08:59 12/15/17 13:39 2 MG Tamsulosin HCl (Flomax Cap) 0.4 mg HS PO 12/15/17 21:00 01/14/18 20:59 12/15/17 21:00 0.4 MG Pantoprazole Sodium 40 mg/ Syringe 10 ml @ 5 mls/min DAILY@11 IV 12/16/17 11:00 01/15/18 10:59 Sodium Chloride 1,000 ml @ 75 mls/hr [id number] IV 12/15/17 12:30 01/14/18 12:29 12/16/17 02:15 75 MLS/HR Promethazine HCl 12.5 mg/Sodium Chloride 50.5 ml @ 204 mls/hr Q6H PRN IV 12/15/17 14:30 01/14/18 14:29 Piperacillin Sod/ Tazobactam Sod 3.375 gm/Dextrose 115 ml @ 28.75 mls/ hr Q8H IV 12/16/17 16:00 12/26/17 15:59 Miscellaneous Information (Consult) 1 ea UD PRN N/A 12/16/17 08:30 01/15/18 08:29 Impression 57-year-old gentlemen with end-stage renal disease status post recent donor renal transplant on 11/18/2017, uncomplicated, has been doing well since the transplant, renal function continues to improve, creatinine came down to 2.0 , electrolyte acceptable. Blood pressure and volume status acceptable. He has been tolerating immunosuppressants, on tacrolimus 2 mg in a.m., 1 mg p.m., CellCept and taper dose of prednisone. Also on Bactrim and acyclovir for prophylaxis. Presented to the hospital with an episode of epigastric and chest pain, no EKG changes, currently symptom resolved, troponin remain mildly elevated which is chronic. Evaluated by Cardiology. Lab showed elevated LFT and her ultrasound was concerning for gallbladder sludge without definitive cholecystitis. Recommendations --continue on current dose of Prograf, CellCept 500 4 times a day and Prednisone 50 mg daily. Renal function stable. --since LFT worsening, pt may need further eval and possible Sx and since we do not have IF prograf, it would be best to transfer pt to [facility]. Will follow while pt is here
[2017-12-16] MEDS: TACROLIMUS 1 MG CAP PO SCH (10:48)
[2017-12-16] MEDS ORDERED: PANTOprazole INJ 40 MG in SYRINGE 0 ML IV SCH (11:00)
[2017-12-16] MEDS ORDERED: PIPERACILL/TAZOBAC IV 3.375 GM in DEXTROSE 5% 100ML 100 ML IV SCH (16:00)
[2017-12-17 09:23] LABS: FK506 TACROLIMUS HIGHLY SENS SEE REFERENCE REPORT
== END 2017-12-16 13:46 | disposition home or self-care (01) | DRG 444 ==
LOC: EDBD 06:04 → C.EDA 06:05 → C.2E 08:49 → ENRESERV 09:14
PROVIDERS: ADMIT Family Medicine; ATTEND Family Medicine
DX: K82.9 Disease of gallbladder, unspecified (principal); N18.6 End stage renal disease; Z94.0 Kidney transplant status; I50.22 Chronic systolic (congestive) heart failure; I24.8 Other forms of acute ischemic heart disease; K22.10 Ulcer of esophagus without bleeding; D61.818 Other pancytopenia; I42.0 Dilated cardiomyopathy; I11.0 Hypertensive heart disease with heart failure; E83.42 Hypomagnesemia; K26.7 Chronic duodenal ulcer without hemorrhage or perforation; M10.9 Gout, unspecified; R79.89 Other specified abnormal findings of blood chemistry; D63.1 Anemia in chronic kidney disease; I27.20 Pulmonary hypertension, unspecified; E78.5 Hyperlipidemia, unspecified; I07.1 Rheumatic tricuspid insufficiency; R74.0 Nonspecific elevation of levels of transaminase and lactic acid dehydrogenase [LDH]; Z83.3 Family history of diabetes mellitus; Z84.1 Family history of disorders of kidney and ureter; Z82.49 Family history of ischemic heart disease and other diseases of the circulatory system

== ENCOUNTER 2022-02-23 11:40 | Inpatient (IN) ==
[2022-02-23] MEDS ORDERED: SODIUM CHLORIDE 0.9% 500 ML IV STA (11:51)
[2022-02-23] MEDS ORDERED: KETAMINE HCL INJ 50 MG/ML 10 ML VIAL ONE (12:04)
[2022-02-23] MEDS ORDERED: NITROGLYCERIN/D5W 100MCG/ML 20ML SYR ONE (12:06)
[2022-02-23] MEDS ORDERED: MIDAZOLAM HCL 1 MG/ML 2ML VIAL ONE (12:06)
[2022-02-23] MEDS ORDERED: niCARdipine HCL INJ 2.5 MG/ML 10 ML AMP ONE (12:06)
[2022-02-23] MEDS ORDERED: fentaNYL citrate 100 MCG/2 ML VIAL ONE (12:06)
[2022-02-23] MEDS ORDERED: HEPARIN (PORCINE) 1000 UNIT/ML 10 ML (CATH LAB USE ONLY) ONE (12:06)
[2022-02-23] MEDS ORDERED: LIDOCAINE 1% LOCAL 20 ML VIAL ONE (12:07)
--- NOTE | 2022-02-23 12:09 | Emergency Department Note ---
Impression & Plan Cardiac arrest, Third degree heart block, Bundle branch block, right ED Provider Note NAME: MYLA BARGER II AGE: 61 SEX: M : 1960 ARRIVES VIA: Ambulance INFORMANT: Patient, EMS, the patient's ED PROVIDER(S): Lalito Ashford DO CHIEF COMPLAINT: Syncope HPI: The patient is a 61-year-old male who presented to the emergency department for evaluation after having a syncopal episode at work. I did receive a prehospital notification about the patient. He apparently had an abnormal EKG. Reportedly he had shortness of breath but upon arrival to the emergency department the patient denies having any chest pain or shortness of breath. He had an episode of syncope while at work. His significant other called 911. She noticed his head fell backward and he started having sonorous respirations. He was found to have ectopy as well as what looks like a second-degree block type II. He has no history of this. On route to the hospital he complained of nausea and had another episode of syncope. At this time he had P waves but no QRS complexes. This occurred for approximately 5 seconds. The patient did not receive CPR. Transcutaneous pacer was not placed prior to arrival. On my initial evaluation the patient was awake and alert. He was sinus rhythm with ectopy. He does have a history of renal transplant at [facility] in 2018. At that time he had a screening cardiac catheterization which showed no acute disease according to him and his significant other. The patient denies having any lower extremity swelling. He denies having any decreased urine output. He has had no new medications that he can think of. ROS: See above HPI for pertinent positives & negatives. A total of 10 systems reviewed and were otherwise negative. PAST MEDICAL HISTORY: See Below PAST SURGICAL HISTORY: See Below FAMILY HISTORY: See Below SOCIAL HISTORY: See Below HOME MEDICATIONS: See Below ALLERGIES: See Below VITALS: See Below PHYSICAL EXAMINATION: GENERAL: Patient is awake alert in no acute distress patient is resting comfortably and showing no signs of anxiety EYES: The conjunctivae are clear. The pupils are round and reactive. EARS, NOSE, MOUTH AND THROAT: The nose is without any evidence of any deformity. Mucous membranes are moist. Tongue is midline. NECK: The neck is nontender and supple. RESPIRATORY: Normal respiratory effort is noted there is no evidence of wheezing rhonchi or rales CARDIOVASCULAR: Ectopy was noted auscultation. There is no definite murmur. GASTROINTESTINAL: The abdomen is soft. Abdomen is nontender. MUSCULOSKELETAL/EXTREMITIES: There is no evidence of gross deformity full range of motion is noted in the hips and shoulders. SKIN: Skin is warm and dry. Trace pedal edema was noted bilaterally. There was a dialysis fistula in the left upper extremity. There was a palpable thrill. NEUROLOGIC: Patient is awake alert and oriented x3. Strength is symmetric. MEDICAL DECISION MAKING: The patient is a 61-year-old male who presented to the emergency department for an evaluation of syncope. The patient was found to be in heart block upon arrival to the emergency department. The patient had 1 episode of syncope again with the sinus arrest. CPR was begun. The patient was placed under transc utaneous pacemaker. The patient was given ketamine to facilitate the pacer. He had significant improvement in his mental status as well as his blood pressure. I discussed the patient's condition with the postpartum rn. He was taken to the Make Up Worker for emergent transvenous pacer placement. I discussed this case with the [facility]'s group. They have agreed to evaluate the patient for further management and disposition. Triage Nursing notes reviewed. Prior medical records reviewed Vital Signs: reviewed and remarkable for elevated blood pressure. Differential diagnosis: Vasovagal event, dehydration, infection, hypoglycemia, electrolyte abnormalities, cardiac sources, intracerebral event, pulmonary embolism, seizure, toxicologic, neurologic, as well as other pathologies. ER treatment provided: See below Diagnostics interpreted by me: ECG: EKG was obtained in the emergency department. My interpretation is sinus bradycardia 59 bpm. PACs were noted with a right bundle branch block pattern. This was compared to a tracing from December 16, 2017. The right bundle branch block is new compared to the previous tracing. Prehospital monitor strips were reviewed. There was an episode of complete heart block noted with what appeared to be escape ventricular beats. The patient did have syncope during this episode when the monitor strip was taken. Cardiac Monitoring: An order was placed for continuous cardiac monitoring. The monitor shows a rate of 97 bpm. The patient was found to have intermittent episodes of heart block with bradycardic rhythms between 40 and 60. He was also found to have sinus rhythm. He was also found to have a paced rhythm when the transcutaneous pacemaker was applied and working. Laboratory studies: As stated above and show below. Imaging studies: See below Consultation(s): I discussed his case with Dr. Reynoso who is the postpartum rn. He evaluated the patient in the emergency department. I discussed this case with Dr. Sagastume who is on-call for the [facility] hospitalist group. They will evaluate the patient in the emergency department. ED COURSE: Patient went into sinus arrest in room B1. The transcutaneous pacer was placed. CPR was begun. Initially a CODE BLUE was called but he had good capture with the transcutaneous pacer so a heart alert was called. Dr. Reynoso p resented to the emergency department to evaluate the patient. Procedures: Transcutaneous pacing. Critical Care: I have personally spent greater than 35 minutes of critical care time in the direct management of this patient. This includes bedside care, interpretation of diagnostic studies, and testing, discussion with consultants, patient, and f amily members, and other required patient management activities. This 35 minutes is in excess of all separately billable procedures. Past Med/Surg History Medical History Anemia Chronic renal insufficiency Duodenal ulcer GI bleed Hx of gout Hypercholesterolemia Hypertension Obstructive sleep apnea Surgical History Kidney transplant recipient S/P arteriovenous (AV) fistula creation Family History Grandmother (Paternal) Myocardial infarction Denies family history of Ovarian cancer Prostate cancer Breast cancer Colorectal cancer Social History Smoking Status: Unknown if ever smoked Second Hand Exposure: No; Hx Alcohol Use: Yes (Several times a year) Hx Substance Use: No Preferred Language: Nepali marital status: current occupational status: employed Feels Safe at Home: Yes Dental Care, Regularly: Yes Physical Activity Frequency: 5-6 Times per Week Seatbelt Use: always Sunscreen Use: Yes Allergies Allergies Allergy/AdvReac Type Severity Reaction Status Date / Time aspirin Allergy Severe Not able Verified 02/09/22 13:26 to swallow Home Meds Home Medications Medication Instructions Recorded Confirmed cholecalciferol (vitamin D3) 50 2,000 units PO DAILY tab 12/07/19 05/23/22 mcg (2,000 unit) tablet tacrolimus 1 mg tablet,extended 3 mg PO DAILY 10/21/21 02/09/22 release 24 hr (Envarsus XR) famotidine 20 mg tablet (Pepcid) 20 mg PO DAILY tab 02/09/22 02/09/22 Previous Rx's Medication Instructions Recorded prednisolone 5 mg tablet 5 mg PO DAILY #30 tab 05/02/19 tamsulosin 0.4 mg capsule 0.4 mg PO DAILY #90 cap 05/02/19 atorvastatin 20 mg tablet 20 mg PO DAILY #90 tab 06/25/21 allopurinol 300 mg tablet 300 mg PO DAILY #90 tab 01/12/22 lactulose 10 gram/15 mL (15 mL) 10 g PO DAILY PRN #60 ml 02/09/22 oral solution polyethylene glycol 3350 17 gram 17 g PO DAILY PRN #14 ea 02/10/22 oral powder packet Results & Data (ED) Home Medications Current Medication List: was personally reviewed by me Laboratory Data Attestation: I reviewed the patient's lab results. Result diagrams: 02/23/22 11:55 02/23/22 11:55 Lab Results 02/23/22 02/23/22 Range/Units 11:55 11:59 WBC 8.07 (4.8-10.8) K/uL RBC 4.20 L (4.7-6.1) M/uL Hgb 13.9 L (14.0-18.0) g/dL POC Hgb 14.6 (14.0-18.0) g/dl Hct 41.3 L (42-52) % POC Hct 43 (42-52) % MCV 98.3 (80-100) fL MCH 33.1 (25-34) pg MCHC 33.7 (32-36) g/dL RDW Std Deviation 47.4 H (36.4-46.3) fL RDW Coeff of Katherine 13.3 (11.5-14.5) % POC Sodium 141 (135-144) mmol/L POC Potassium 4.2 (3.3-5.0) mmol/L POC Chloride 111 (101-112) mmol/L POC Total CO2 21 L (24-31) mmol/L POC Anion Gap 15.0 L (16-25) mmol/L POC BUN 28 H (7-18) mg/dl POC Creatinine 1.5 H (0.6-1.3) mg/dl POC Glucose (other) 158 H (70-99) mg/dl POC Ioniz Calcium Evelyn 1.28 (1.12-1.32) mmol/l Imaging Data Radiologist's Impression: Chest X-Ray 02/23/22 11:51 XR chest 1V portable HISTORY: 61 years-old Male Chest Pain acute atypical chest pain COMPARISON: Chest radiographs 11/28/2021, chest CT 02/07/2022 TECHNIQUE: Portable AP view of the chest FINDINGS: The cardiac silhouette is enlarged. Pulmonary vascular congestion with interstitial coarsening. No pneumothorax, large pleural effusion or lobar airspace consolidation. Degenerative changes of the shoulders and spine. IMPRESSION: Cardiomegaly with pulmonary vascular congestion. ACT 112: Negative or not required by law. The above report was generated using voice recognition software. It may contain grammatical, syntax or spelling errors. Electronically signed by: Ronald Bonilla M.D. 02/23/2022 12:17 PM Discharge Plan Visit Data Chief Complaint: Syncope Stated Complaint: SYNCOPE, SOB ED Provider: Lalito Ashford Discharge Problem: Cardiac arrest, Third degree heart block, Bundle branch block, right Patient Disposition: Being Evaluated by Hospitalist Forms Stand Alone Forms: My [facility] [employer] Prescriptions Prescriptions: No Action prednisolone 5 mg tablet 5 mg PO DAILY Qty: 30 RF: 0 tamsulosin 0.4 mg capsule 0.4 mg PO DAILY Qty: 90 RF: 3 atorvastatin 20 mg tablet 20 mg PO DAILY Qty: 90 RF: 3 allopurinol 300 mg tablet 300 mg PO DAILY Qty: 90 RF: 3 polyethylene glycol 3350 17 gram powder in packet 17 g PO DAILY PRN (Reason: constipation) Qty: 14 RF: 0 famotidine [Pepcid] 20 mg tablet 20 mg PO DAILY RF: 0 cholecalciferol (vitamin D3) 2,000 unit tablet 2,000 units PO DAILY RF: 0 lactulose 10 gram/15 mL (15 mL) solution 10 g PO DAILY PRN (Reason: constipation) Qty: 60 RF: 1 Envarsus XR 1 mg tablet extended release 24 hr 3 mg PO DAILY RF: 0 Referrals Referrals: Yari Ashby MD [Primary Care Provider] -
[2022-02-23 12:12] LABS: iSTAT Creatinine 1.5 mg/dl (0.6-1.3); iSTAT Hemoglobin 14.6 g/dl (14.0-18.0); iSTAT Ionized Calcium 1.28 mmol/l (1.12-1.32); iSTAT Potassium 4.2 mmol/L (3.3-5.0)
[2022-02-23] MEDS ORDERED: ATROPINE SULFATE 0.1 MG/ML 10ML SYR IV ONE (12:15)
--- NOTE | 2022-02-23 12:18 | XRay Report ---
XR chest 1V portable HISTORY: 61 years-old Male Chest Pain acute atypical chest pain COMPARISON: Chest radiographs 11/28/2021, chest CT 02/07/2022 TECHNIQUE: Portable AP view of the chest FINDINGS: The cardiac silhouette is enlarged. Pulmonary vascular congestion with interstitial coarsening. No pn eumothorax, large pleural effusion or lobar airspace consolidation. Degenerative changes of the shoul ders and spine. IMPRESSION: Cardiomegaly with pulmonary vascular congestion. ACT 112: Negative or not required by law. The above report was generated using voice recognition software. It may contain grammatical, syntax o r spelling errors. Electronically signed by: Ronald Bonilla M.D. 02/23/2022 12:17 PM
[2022-02-23 12:26] LABS: Hematocrit (blood only) 41.3 % (42-52); Hemoglobin 13.9 g/dL (14.0-18.0); Mean Corpuscular Hemoglobin 33.1 pg (25-34); Mean Corpuscular Hgb Conc 33.7 g/dL (32-36); Mean Corpuscular Volume 98.3 fL (80-100); RDW Coefficient of Variation 13.3 % (11.5-14.5); RDW Standard Deviation 47.4 fL (36.4-46.3); White Blood Count 8.07 K/uL (4.8-10.8)
[2022-02-23] MEDS ORDERED: KETAMINE HCL INJ 50 MG/ML 10 ML VIAL IV ONE (12:30)
[2022-02-23 12:34] LABS: Mean Platelet Volume 11.4 fL (7.4-10.4); Platelet Count 99 K/uL (130-400)
[2022-02-23 12:54] LABS: Basophils # (auto) 0.01 K/uL (0-0.2); Basophils % (auto) 0.1 %; Eosinophils # (auto) 0.21 K/uL (0-0.5); Eosinophils % (auto) 2.6 %; Immature Granulocytes # (auto) 0.03 K/uL (0.00-0.02); Immature Granulocytes % (auto) 0.4 %; Lymphocytes # (auto) 1.03 K/uL (1.2-3.4); Lymphocytes % (auto) 12.8 %; Monocytes # (auto) 0.63 K/uL (0.11-0.59); Monocytes % (auto) 7.8 %; Neutrophils # (auto) 6.16 K/uL (1.4-6.5); Neutrophils % (auto) 76.3 %; RBC Morphology Unremarkable
[2022-02-23] MEDS ORDERED: ONDANSETRON INJ 2 MG/ML 2 ML VIAL ONE ×2 (13:07→13:20)
[2022-02-23 13:23] LABS: Alanine Aminotransferase 17 U/L (7-52); Albumin Globulin Ratio 1.6 (0.9-2); Albumin Level 3.8 gm/dl (3.4-5.0); Alkaline Phosphatase 55 U/L (34-104); Anion Gap 9 (3-11); BUN Creatinine Ratio 14.9 (10-20); Bilirubin,Total 0.9 mg/dl (0.2-1.0); Blood Urea Nitrogen 24 mg/dl (6-23); Calcium 9.9 mg/dl (8.5-10.1); Carbon Dioxide 20 mmol/L (21-32); Chloride 110 mmol/L (98-107); Est GFR (African American) 53.1 ml/min; Est GFR (Non-African American) 45.8 ml/min; Globulin 2.4 gm/dl (2.5-4.0); Glucose 154 mg/dl (70-99(Fasting)); Lipase 19 U/L (11-82); Magnesium 1.5 mg/dl (1.7-2.4); Sodium 139 mmol/L (136-145); Total Protein 6.2 gm/dl (6.0-8.3); Troponin I High Sensitivity 53.9 pg/ml (0-20)
[2022-02-23] MEDS ORDERED: ICU PROTOCOL FOR HYPERGLYCEMIA PRN ×2 (13:25→14:06)
[2022-02-23] MEDS ORDERED: SODIUM CHLORIDE 0.9% 1000ML 1,000 ML IV SCH (13:30)
--- NOTE | 2022-02-23 13:49 | Cardiology Consultation ---
Date of Consultation February 23, 2022 Assessment & Plan (1) Third degree heart block: Recurrent syncope in the setting of complete heart block. Currently being transcutaneously paced hemodynamically stable. Electrolytes, thyroid, Lyme pending. Is not on AV reji agents. Has longstanding evidence of conduction system disease on prior ECGs. Plan to proceed with placement of transvenous pacemaker. We will also evaluate coronary arteries in setting of questionable now left bundle branch block morphology on ECG and mildly elevated HsTrop. History of Present Illness Attending Physician: Rashel Reynoso MD History of Present Illness Mr. Carbajal is a 61-year-old man post renal transplant (11/[address] [facility] for ? Glomerulonephritis) seen emergently in the ED after heart alert activated due to syncope and reported complete heart block requiring transcutaneous pacing. Patient seen while being actively transcutaneously paced. Had received ketamine in the ED and unable to provide history. Per Dr. Ashford, patient's has been in usual state of health recently. Today was at work when initially passed out. Reportedly had an additional episode in route with complete heart block on monitor. Additional presyncopal event in ED. Cardiac history remarkable for prior dilated cardiomyopathy now with recovered EF, minimal CAD on pretransplant cardiac cath 03/2017, prior pulmonary hypertension, PVCs. Longstanding prolonged QRS with nonspecific interventricular delay. Baseline creatinine now around 1.6. Other medical issues include hypertension, dyslipidemia, gout. Allergies Allergy/AdvReac Type Severity Reaction Status Date / Time aspirin Allergy Severe Not able Verified 02/23/22 12:31 to swallow Home Medications Medication Instructions Recorded Confirmed Type cholecalciferol (vitamin D3) 50 2,000 units PO QAM tab 08/26/19 02/23/22 History mcg (2,000 unit) tablet tacrolimus 1 mg tablet,extended 3 mg PO QAM 10/21/21 02/23/22 History release 24 hr (Envarsus XR) allopurinol 300 mg tablet 300 mg PO QAM 02/23/22 02/23/22 History atorvastatin 20 mg tablet 20 mg PO HS 02/23/22 02/23/22 History mycophenolate sodium 360 mg 360 mg PO BID 02/23/22 02/23/22 History tablet,delayed release prednisolone 5 mg tablet 5 mg PO QAM 02/23/22 02/23/22 History tamsulosin 0.4 mg capsule 0.4 mg PO HS 02/23/22 02/23/22 History Patient History Medical History Anemia Chronic renal insufficiency Duodenal ulcer GI bleed Hx of gout Hypercholesterolemia Hypertension Obstructive sleep apnea Surgical History Kidney transplant recipient S/P arteriovenous (AV) fistula creation Family History Grandmother (Paternal) Myocardial infarction Denies family history of Ovarian cancer Prostate cancer Breast cancer Colorectal cancer Social History Smoking Status: Unknown if ever smoked Second Hand Exposure: No; Hx Alcohol Use: Yes (Several times a year) Hx Substance Use: No Preferred Language: Eritrean marital status: current occupational status: employed Feels Safe at Home: Yes Dental Care, Regularly: Yes Physical Activity Frequency: 5-6 Times per Week Seatbelt Use: always Sunscreen Use: Yes Review of Systems Review of Systems: Unobtainable due to reduced consciousness Physical Exam Physical Exam: General: Sleepy, does not respond to questions post ketamine, being transcutaneously paced HEENT: Sclerae anicteric Lungs: Clear to auscultation anteriorly Cardiac: Regular rate no murmurs. Vascular: 2+ radial Abdomen: Soft, nontender Extremities: Well perfused, no peripheral edema Results & Data ([facility]) Vital Signs (Past 12 Hours) Vital Signs Temp Pulse Pulse Resp BP BP BP 02/23/22 13:35 80 16 154/85 H 02/23/22 13:20 80 16 172/96 H 02/23/22 12:19 97 H 17 149/74 H 02/23/22 12:18 94 H 16 135/75 02/23/22 12:12 92 H 17 144/86 H 02/23/22 12:05 144 H 02/23/22 12:01 0 L 02/23/22 12:00 32 L 02/23/22 11:40 98.6 F 60 16 129/72 Pulse Ox 02/23/22 13:35 96 02/23/22 13:20 96 02/23/22 12:19 100 02/23/22 12:18 100 02/23/22 12:12 100 02/23/22 12:05 02/23/22 12:01 02/23/22 12:00 02/23/22 11:40 97 PG Care Time/CCT Total # of Minutes Spent Total Time Spent with Patient: Total time spent is greater than 50% in coordination of care (as documented) at patient's floor/unit and/or counseling patient: Coding Level of Care Code 31474 Inpt Consult Level 4 Diagnoses Third degree heart block I44.2
[2022-02-23] MEDS ORDERED: LORazepam 2 MG/1 ML VIAL ONE (14:01)
--- NOTE | 2022-02-23 14:05 | Cardiac Catheterization ---
[facility] Data: Book Trimmer Cardiac Status Clinical evaluation leading to the procedure CAD Presenation: Sx unlikely to be ischemic Diagnostic Physicians Name: Rashel Reynoso MD Closure Device Recommendations: Medical Therapy and/or Counseling Cardiac Cath Procedure Full Procedure Date February 23, 2022 Pre-Procedure Diagnosis Pre-Procedure Diagnosis: Non STEMI and Arrhythmia AUC Score AUC Score: 7 Post-Procedure Diagnosis Post-Procedure Diagnosis: Mild CAD and Normal Intracardiac Pressures Procedure(s) Performed Procedure(s) Performed: Coronary Angiography, Left Heart Cath, Temporary Pacemaker and Ultrasound Guided Vascular Access Curve Saw Operator Rashel Reynoso MD Shaft Repairer(s) Washhouse Worker Estimated Blood Loss Estimated Blood Loss: 10 Medication(s) Medication(s): Heparin, Lidocaine 1%, Nicardipine and Nitroglycerin Summary of Findings Indication: Complete heart block, syncope Access: 6 Fr right radial artery under ultrasound guidance, 6 Fr right jugular vein under ultrasound guidance Catheters: [place], diagnostic JR4, transvenous pacemaker Findings: LM -normal caliber, angiographically normal LAD -calcified, medium caliber, luminal irregularities, extends to apex. D1, D2 without disease. Circumflex -medium caliber, 20 to 30% mid segment disease. Large OM 3, left PLB without disease. RCA -dominant, medium caliber, 20 to 30% mid segment disease. LVEDP -4 Arterial Closure: TR band Procedure: Transvenous pacemaker navigated from right IJ into RV under fluoroscopic guidance Adequate pacing confirmed at outputs <1 mA Final settings VVI at 80 bpm, 5 mA Summary: 1. Mild nonobstructive coronary artery disease -20 to 30% mid circumflex 20 to 30% mid RCA 2. Normal intracardiac filling pressure 3. Successful placement of transvenous temporary pacemaker Recommendations: Follow-up thyroid, Lyme studies, echocardiogram Discussed with EP about likely permanent pacemaker placement Continued ASCVD risk factor modification Hemodynamics Rest Ao:: 97/70/83 Final Ao: 97/59/74 LV: 101/4 Recommendations Recommendations: Medical Therapy and/or Counseling Specimens Specimens: None Radiation Exposure (mGy) 1031 Contrast (mls) 40 Anesthesia Moderate 9982-7799 Procedural Complication(s) None Disposition ICU I attest to the content of the Intraoperative Record and any orders documented therein. Any exceptions are noted below. cisimpleG Card Cath Procedure Codes Cardiac Catheterization Procedure 1: Cardiovascular Cath Procedures: 75029 Coronaries and LHC (+/-LV) Therapeutic Services & Ancillary Proc Procedure 1: Cardiovascular Tx and Anc Procedures: 91899 Temp Pacer Insert Procedure 2: Cardiovascular Tx and Anc Procedures: 15369 Ultrasonic Guidance Vascular Access Procedure 3: Cardiovascular Tx and Anc Procedures: 03120 Ultrasonic Guidance Vascular Access Moderate Sedation Procedure 1: Sedation/Anesthesia: 86869 Mod Sedation by the same physician;Init15 Min Child Age 5 & Up PG Care Time/CCT Total # of Minutes Spent Total Time Spent with Patient: Total time spent is greater than 50% in coordination of care (as documented) at patient's floor/unit and/or counseling patient:
[2022-02-23] MEDS ORDERED: LORazepam 2 MG/1 ML VIAL IV PRN (14:06)
[2022-02-23] MEDS ORDERED: PROMETHAZINE HCL 12.5 MG in SODIUM CHLORIDE 0.9% 50 ML IV PRN (14:06)
--- NOTE | 2022-02-23 14:21 | History & Physical Report ---
Date of Service February 23, 2022 Assessment & Plan (1) Third degree heart block: Plan: Presents with cardiac arrest and third-degree heart block causing syncope Transcutaneously paced in the ER for brief round of CPR Transferred urgently to cardiac Library Media Assistant for transvenous pacer placement, left heart cath with minimal nonobstructive coronary artery disease and normal filling pressures Lyme titer negative, TSH pending Troponin mildly elevated on arrival at 53. ECG with third-degree heart block and new right bundle branch block -Admit to ICU -Appreciate sky diver consultation -Continue transvenous pacing and plan for PPM tomorrow, n.p.o. after midnight -Replace magnesium with 2 g IV magnesium -Follow BMP, magnesium in the morning, replace electrolytes as needed -Follow-up TSH -Trend serial troponin -Pressor support as needed -Check echocardiogram (2) Nausea & vomiting: Plan: Related to syncope and heart block Antiemetics as needed-Zofran, Phenergan, Ativan as needed Continue IV fluids Advance diet as tolerated (3) Cardiac arrest: Plan: Secondary to third-degree heart block (4) Bundle branch block, right: Plan: New onset Cardiac cath with minimal nonobstructive disease (5) Kidney transplant recipient: Plan: Remains on prednisolone, mycophenolate, and tacrolimus-continue all these meds- his tacrolimus XR will have to be brought in from home Nephrology has been consulted by the sky diver Creatinine is at baseline today 1.6 but did receive dye load through cardiac catheterization Follow BMP Continue IV fluids at 50 mils per hour (6) Anemia: Plan: Hemoglobin mildly low at 13.9, borderline macrocytic, with mildly low platelets Likely secondary to immune suppression plus chronic kidney disease Follow CBC (7) Secondary hyperparathyroidism of renal origin: Plan: Noted, followed by nephrology (8) CKD (chronic kidney disease) stage 3, GFR 30-59 ml/min: Plan: Creatinine at baseline Follows with nephrology Avoid nephrotoxins and renally dose medications Follow BMP (9) Obstructive sleep apnea: Plan: Not on CPAP therapy (10) Hx of gout: Plan: Hold home allopurinol for now (11) Hypercholesterolemia: Plan: Continue statin Plan: DVT prophylaxis-SCDs Disposition-admit to ICU Admission and Anticipated Discharge Date Admission Date: February 23, 2022 History of Present Illness Chief Complaint: Passing out Primary Care Provider: Yari Ashby MD This patient is a 61-year-old male with a history of renal transplant at [facility] in 2018, gout, hyperlipidemia, HTN, who presents to the ER after passing out at work. He was in his usual state of health when he was at work today and he was sitting and his noticed that his head went backwards and he started having sonorous respirations. An ambulance was called and he was found to have ectopy and a second-degree heart block type II. He had another episode of syncope preceded by nausea and was noted by EMS to have 5 seconds of P waves but no QRS complexes but did not receive CPR. When he first came to the ER, he was noted to be in a sinus rhythm with ectopy but then had another episode of syn cope with sinus arrest and had a brief period of CPR and a CODE BLUE. He was placed on transcutaneous pacing and given ketamine. After this his mentation significantly improved as well as his blood pressure. A heart alert was called he was taken to the Library Media Assistant for emergent transvenous pacer placement. His left heart cath showed minimal nonobstructive coronary artery disease and normal intracardiac filling pressure. I saw him after he was transferred to the ICU postintervention and he was drowsy after receiving Ativan for nausea. He was having some intermittent ventricular ectopy thought to be secondary to the transvenous catheter. Allergies Allergy/AdvReac Type Severity Reaction Status Date / Time aspirin Allergy Severe Not able Verified 02/23/22 12:31 to swallow Home Medications Medication Instructions Recorded Confirmed Type cholecalciferol (vitamin D3) 50 2,000 units PO QAM tab 08/26/19 02/23/22 History mcg (2,000 unit) tablet tacrolimus 1 mg tablet,extended 3 mg PO QAM 10/21/21 02/23/22 History release 24 hr (Envarsus XR) allopurinol 300 mg tablet 300 mg PO QAM 02/23/22 02/23/22 History atorvastatin 20 mg tablet 20 mg PO HS 02/23/22 02/23/22 History mycophenolate sodium 360 mg 360 mg PO BID 02/23/22 02/23/22 History tablet,delayed release prednisolone 5 mg tablet 5 mg PO QAM 02/23/22 02/23/22 History tamsulosin 0.4 mg capsule 0.4 mg PO HS 02/23/22 02/23/22 History Past Med/Surg History Medical History Anemia Chronic renal insufficiency CKD (chronic kidney disease) stage 3, GFR 30-59 ml/min Duodenal ulcer GI bleed Hx of gout Hypercholesterolemia Hypertension Obstructive sleep apnea Surgical History Kidney transplant recipient S/P arteriovenous (AV) fistula creation Family History Grandmother (Paternal) Myocardial infarction Denies family history of Ovarian cancer Prostate cancer Breast cancer Colorectal cancer Social History Smoking Status: Never smoker Second Hand Exposure: No; Hx Alcohol Use: No Hx Substance Use: No Preferred Language: Polish Communication Ability: Effective Warp Preparer Required: No Beliefs That Will Affect Care: None marital status: Current Living Situation: Spouse current occupational status: employed Feels Safe at Home: Yes Safety Concerns: Feels Safe At This Time Dental Care, Regularly: Yes Physical Activity Frequency: 5-6 Times per Week Seatbelt Use: always Sunscreen Use: Yes Review of Systems Review of Systems: All systems reviewed & are unremarkable except as noted in HPI & below Physical Exam Constitutional: WD/WN, vitals as above Eyes: + anicteric sclerae ENMT: external ear and nose normal, oropharynx normal Neck: trachea midline, no thyromegaly Respiratory: normal respiratory effort, lungs clear to auscultation Cardiovascular: RRR, no murmur, no edema Right IJ catheter in place Chest (Breasts): Chest: normal inspection of chest Gastrointestinal (Abdomen): normal bowel sounds, soft, nontender, no hepatosplenomegaly Musculoskeletal: Extremities: extremities normal to inspection; no cyanosis and no clubbing Skin: no rashes, warm and dry Neurologic: moves all extremities and awake (But drowsy); no focal motor deficits and not confused Psychiatric: Orientation: alert, oriented x 3 and cooperative Lymphatic: no lymphedema Results & Data Results & Data ([facility]) Vital Signs (Past 12 Hours) Vital Signs Temp Pulse Pulse Resp BP BP BP 02/23/22 13:35 80 16 154/85 H 02/23/22 13:20 80 16 172/96 H 02/23/22 12:19 97 H 17 149/74 H 02/23/22 12:18 94 H 16 135/75 02/23/22 12:12 92 H 17 144/86 H 02/23/22 12:05 144 H 02/23/22 12:01 0 L 02/23/22 12:00 32 L 02/23/22 11:40 37 C 60 16 129/72 Pulse Ox 02/23/22 13:35 96 02/23/22 13:20 96 02/23/22 12:19 100 02/23/22 12:18 100 02/23/22 12:12 100 02/23/22 12:05 02/23/22 12:01 02/23/22 12:00 02/23/22 11:40 97 Laboratory Results 02/23/22 02/23/22 02/23/22 Range/Units 17:32 14:42 14:35 WBC (4.8-10.8) K/uL RBC (4.7-6.1) M/uL Hgb (14.0-18.0) g/dL POC Hgb (14.0-18.0) g/dl Hct (42-52) % POC Hct (42-52) % MCV (80-100) fL MCH (25-34) pg MCHC (32-36) g/dL RDW Std Deviation (36.4-46.3) fL RDW Coeff of Katherine (11.5-14.5) % Plt Count (130-400) K/uL MPV (7.4-10.4) fL Immature Gran % (Auto) % Neut % (Auto) % Lymph % (Auto) % [place] % (Auto) % Eos % (Auto) % Baso % (Auto) % Neut # (Auto) (1.4-6.5) K/uL Lymph # (Auto) (1.2-3.4) K/uL [place] # (Auto) (0.11-0.59) K/uL Eos # (Auto) (0-0.5) K/uL Baso # (Auto) (0-0.2) K/uL Immature Gran # (Auto) (0.00-0.02) K/uL RBC Morphology PT INR APTT PTT Ratio POC Sodium (135-144) mmol/L Sodium (136-145) mmol/L POC Potassium (3.3-5.0) mmol/L Potassium POC Chloride (101-112) mmol/L Chloride (98-107) mmol/L Carbon Dioxide (21-32) mmol/L POC Total CO2 (24-31) mmol/L Anion Gap (3-11) POC Anion Gap (16-25) mmol/L POC BUN (7-18) mg/dl BUN (6-23) mg/dl Creatinine (0.6-1.4) mg/dl POC Creatinine (0.6-1.3) mg/dl Est Cr Clr Drug Dosing Est GFR ( Amer) ml/min Est GFR (Non-Af Amer) ml/min BUN/Creatinine Ratio (10-20) Glucose (70-99(Fasting)) mg/dl POC Glucose 116 H (70-99) mg/dl POC Glucose (other) (70-99) mg/dl Calcium (8.5-10.1) mg/dl POC Ioniz Calcium Evelyn (1.12-1.32) mmol/l Magnesium (1.7-2.4) mg/dl Total Bilirubin (0.2-1.0) mg/dl AST ALT (7-52) U/L Alkaline Phosphatase (34-104) U/L Troponin I High Sens 107.5 H* D (0-20) pg/ml Total Protein (6.0-8.3) gm/dl Albumin (3.4-5.0) gm/dl Globulin (2.5-4.0) gm/dl Albumin/Globulin Ratio (0.9-2) Lipase (11-82) U/L Nasal Screen MRSA (PCR) Negative (Negative) Lyme Disease IgG Ab (Negative) Lyme Disease IgM Ab (Negative) SARS-CoV-2, RNA, NAAT (NEGATIVE) 02/23/22 02/23/22 02/23/22 Range/Units 14:27 14:27 14:27 WBC (4.8-10.8) K/uL RBC (4.7-6.1) M/uL Hgb (14.0-18.0) g/dL POC Hgb (14.0-18.0) g/dl Hct (42-52) % POC Hct (42-52) % MCV (80-100) fL MCH (25-34) pg MCHC (32-36) g/dL RDW Std Deviation (36.4-46.3) fL RDW Coeff of Katherine (11.5-14.5) % Plt Count (130-400) K/uL MPV (7.4-10.4) fL Immature Gran % (Auto) % Neut % (Auto) % Lymph % (Auto) % [place] % (Auto) % Eos % (Auto) % Baso % (Auto) % Neut # (Auto) (1.4-6.5) K/uL Lymph # (Auto) (1.2-3.4) K/uL [place] # (Auto) (0.11-0.59) K/uL Eos # (Auto) (0-0.5) K/uL Baso # (Auto) (0-0.2) K/uL Immature Gran # (Auto) (0.00-0.02) K/uL RBC Morphology PT 12.6 H INR 1.2 H APTT 56.9 H* PTT Ratio 2.1 POC Sodium (135-144) mmol/L Sodium (136-145) mmol/L POC Potassium (3.3-5.0) mmol/L Potassium 4.5 POC Chloride (101-112) mmol/L Chloride (98-107) mmol/L Carbon Dioxide (21-32) mmol/L POC Total CO2 (24-31) mmol/L Anion Gap (3-11) POC Anion Gap (16-25) mmol/L POC BUN (7-18) mg/dl BUN (6-23) mg/dl Creatinine (0.6-1.4) mg/dl POC Creatinine (0.6-1.3) mg/dl Est Cr Clr Drug Dosing Est GFR ( Amer) ml/min Est GFR (Non-Af Amer) ml/min BUN/Creatinine Ratio (10-20) Glucose (70-99(Fasting)) mg/dl POC Glucose (70-99) mg/dl POC Glucose (other) (70-99) mg/dl Calcium (8.5-10.1) mg/dl POC Ioniz Calcium Evelyn (1.12-1.32) mmol/l Magnesium (1.7-2.4) mg/dl Total Bilirubin (0.2-1.0) mg/dl AST 20 ALT (7-52) U/L Alkaline Phosphatase (34-104) U/L Troponin I High Sens (0-20) pg/ml Total Protein (6.0-8.3) gm/dl Albumin (3.4-5.0) gm/dl Globulin (2.5-4.0) gm/dl Albumin/Globulin Ratio (0.9-2) Lipase (11-82) U/L Nasal Screen MRSA (PCR) (Negative) Lyme Disease IgG Ab Negative (Negative) Lyme Disease IgM Ab Negative (Negative) SARS-CoV-2, RNA, NAAT (NEGATIVE) 02/23/22 02/23/22 02/23/22 Range/Units 11:59 11:55 11:55 WBC (4.8-10.8) K/uL RBC (4.7-6.1) M/uL Hgb (14.0-18.0) g/dL POC Hgb 14.6 (14.0-18.0) g/dl Hct (42-52) % POC Hct 43 (42-52) % MCV (80-100) fL MCH (25-34) pg MCHC (32-36) g/dL RDW Std Deviation (36.4-46.3) fL RDW Coeff of Katherine (11.5-14.5) % Plt Count (130-400) K/uL MPV (7.4-10.4) fL Immature Gran % (Auto) % Neut % (Auto) % Lymph % (Auto) % [place] % (Auto) % Eos % (Auto) % Baso % (Auto) % Neut # (Auto) (1.4-6.5) K/uL Lymph # (Auto) (1.2-3.4) K/uL [place] # (Auto) (0.11-0.59) K/uL Eos # (Auto) (0-0.5) K/uL Baso # (Auto) (0-0.2) K/uL Immature Gran # (Auto) (0.00-0.02) K/uL RBC Morphology PT Cancelled INR Cancelled APTT Cancelled PTT Ratio Cancelled POC Sodium 141 (135-144) mmol/L Sodium 139 (136-145) mmol/L POC Potassium 4.2 (3.3-5.0) mmol/L Potassium TNP POC Chloride 111 (101-112) mmol/L Chloride 110 H (98-107) mmol/L Carbon Dioxide 20 L (21-32) mmol/L POC Total CO2 21 L (24-31) mmol/L Anion Gap 9 (3-11) POC Anion Gap 15.0 L (16-25) mmol/L POC BUN 28 H (7-18) mg/dl BUN 24 H (6-23) mg/dl Creatinine 1.61 H (0.6-1.4) mg/dl POC Creatinine 1.5 H (0.6-1.3) mg/dl Est Cr Clr Drug Dosing Not Reportable Est GFR ( Amer) 53.1 ml/min Est GFR (Non-Af Amer) 45.8 ml/min BUN/Creatinine Ratio 14.9 (10-20) Glucose 154 H (70-99(Fasting)) mg/dl POC Glucose (70-99) mg/dl POC Glucose (other) 158 H (70-99) mg/dl Calcium 9.9 (8.5-10.1) mg/dl POC Ioniz Calcium Evelyn 1.28 (1.12-1.32) mmol/l Magnesium 1.5 L (1.7-2.4) mg/dl Total Bilirubin 0.9 (0.2-1.0) mg/dl AST TNP ALT 17 (7-52) U/L Alkaline Phosphatase 55 (34-104) U/L Troponin I High Sens 53.9 H* (0-20) pg/ml Total Protein 6.2 (6.0-8.3) gm/dl Albumin 3.8 (3.4-5.0) gm/dl Globulin 2.4 L (2.5-4.0) gm/dl Albumin/Globulin Ratio 1.6 (0.9-2) Lipase 19 (11-82) U/L Nasal Screen MRSA (PCR) (Negative) Lyme Disease IgG Ab (Negative) Lyme Disease IgM Ab (Negative) SARS-CoV-2, RNA, NAAT (NEGATIVE) 02/23/22 02/23/22 Range/Units 11:55 11:36 WBC 8.07 (4.8-10.8) K/uL RBC 4.20 L (4.7-6.1) M/uL Hgb 13.9 L (14.0-18.0) g/dL POC Hgb (14.0-18.0) g/dl Hct 41.3 L (42-52) % POC Hct (42-52) % MCV 98.3 (80-100) fL MCH 33.1 (25-34) pg MCHC 33.7 (32-36) g/dL RDW Std Deviation 47.4 H (36.4-46.3) fL RDW Coeff of Katherine 13.3 (11.5-14.5) % Plt Count 99 L (130-400) K/uL MPV 11.4 H (7.4-10.4) fL Immature Gran % (Auto) 0.4 % Neut % (Auto) 76.3 % Lymph % (Auto) 12.8 % [place] % (Auto) 7.8 % Eos % (Auto) 2.6 % Baso % (Auto) 0.1 % Neut # (Auto) 6.16 (1.4-6.5) K/uL Lymph # (Auto) 1.03 L (1.2-3.4) K/uL [place] # (Auto) 0.63 H (0.11-0.59) K/uL Eos # (Auto) 0.21 (0-0.5) K/uL Baso # (Auto) 0.01 (0-0.2) K/uL Immature Gran # (Auto) 0.03 H (0.00-0.02) K/uL RBC Morphology Unremarkable PT INR APTT PTT Ratio POC Sodium (135-144) mmol/L Sodium (136-145) mmol/L POC Potassium (3.3-5.0) mmol/L Potassium POC Chloride (101-112) mmol/L Chloride (98-107) mmol/L Carbon Dioxide (21-32) mmol/L POC Total CO2 (24-31) mmol/L Anion Gap (3-11) POC Anion Gap (16-25) mmol/L POC BUN (7-18) mg/dl BUN (6-23) mg/dl Creatinine (0.6-1.4) mg/dl POC Creatinine (0.6-1.3) mg/dl Est Cr Clr Drug Dosing Est GFR ( Amer) ml/min Est GFR (Non-Af Amer) ml/min BUN/Creatinine Ratio (10-20) Glucose (70-99(Fasting)) mg/dl POC Glucose (70-99) mg/dl POC Glucose (other) (70-99) mg/dl Calcium (8.5-10.1) mg/dl POC Ioniz Calcium Evelyn (1.12-1.32) mmol/l Magnesium (1.7-2.4) mg/dl Total Bilirubin (0.2-1.0) mg/dl AST ALT (7-52) U/L Alkaline Phosphatase (34-104) U/L Troponin I High Sens (0-20) pg/ml Total Protein (6.0-8.3) gm/dl Albumin (3.4-5.0) gm/dl Globulin (2.5-4.0) gm/dl Albumin/Globulin Ratio (0.9-2) Lipase (11-82) U/L Nasal Screen MRSA (PCR) (Negative) Lyme Disease IgG Ab (Negative) Lyme Disease IgM Ab (Negative) SARS-CoV-2, RNA, NAAT NEGATIVE (NEGATIVE) Diagnostic Findings Chest X-Ray 02/23/22 11:51 XR chest 1V portable HISTORY: 61 years-old Male Chest Pain acute atypical chest pain COMPARISON: Chest radiographs 11/28/2021, chest CT 02/07/2022 TECHNIQUE: Portable AP view of the chest FINDINGS: The cardiac silhouette is enlarged. Pulmonary vascular congestion with interstitial coarsening. No pneumothorax, large pleural effusion or lobar airspace consolidation. Degenerative changes of the shoulders and spine. IMPRESSION: Cardiomegaly with pulmonary vascular congestion. ACT 112: Negative or not required by law. The above report was generated using voice recognition software. It may contain grammatical, syntax or spelling errors. Electronically signed by: Ronald Bonilla M.D. 02/23/2022 12:17 PM ECG Additional Comments: ECG with third-degree heart block, right bundle branch block, rate 59 Code Status & VTE Plan Code Status Full code VTE Prophylaxis Plan VTE Prophylaxis will be ordered: Yes PG Care Time/CCT Total # of Minutes Spent Total Time Spent with Patient: Total time spent is greater than 50% in coordination of care (as documented) at patient's floor/unit and/or counseling patient: Coding Level of Care Code 49055 Initial Inpt Care Lvl 3 Diagnoses Nausea & vomiting R11.2 Third degree heart block I44.2 Cardiac arrest I46.9 Bundle branch block, right I45.10 Obstructive sleep apnea G47.33 Hx of gout Z87.39 Hypercholesterolemia E78.00 Kidney transplant recipient Z94.0 Anemia D64.9 Secondary hyperparathyroidism of renal origin N25.81 CKD (chronic kidney disease) stage 3, GFR 30-59 ml/min N18.30
--- NOTE | 2022-02-23 14:22 | Critical Care Consultation ---
Date of Consultation February 23, 2022 Assessment & Plan (1) Cardiac arrest: (2) Third degree heart block: (3) Kidney transplant recipient: (4) Nausea & vomiting: Impression: 61-year-old male status post kidney transplant presenting now with third-degree heart block requiring emergent transvenous pacing. Recommendations: 1. Neurologic: No current issues. Continue to follow clinically. 2. Cardiovascular: Third-degree heart block. Unclear etiology. Lyme serologies are pending. Transvenous pacer in place. Continue pacing. Formal consultation with electrophysiology pending. Suspect patient will likely require permanent pacemaker placement in the next 24 hours. Maintain bedrest while pacing wire in place. Continue lipid-lowering agent. 3. Pulmonary: No current issues. Continue oxygen to maintain saturation at or above 88%. 4. GI: Nausea. Suspect this is related to potential low flow straight in the patient's intermittent cardiac arrest. Continue antiemetics with Zofran, Phenergan, and as needed Ativan. If persists, may require imaging and additional laboratory evaluation. Okay to advance diet as tolerated. N.p.o. after midnight for potential procedure in the next 24 hours. 5. Renal: History of kidney transplant. We will consult nephrology for dosing of renal suppressive medications. ICU replacement electrolyte protocol to be initiated. 6. Heme-onc: No current issues. Continue to follow clinically. 7. ID: No current issues. 8. Endocrine: Glycemic control per protocol. Thanks for the opportunity of assisting in the care of management this patient. Feel free to contact us if we can be of additional assistance. Case was discussed with bedside critical care nurse as well as with patient and family at bedside. Total of 40 minutes critical care time was spent evaluation management this patient with life-threatening illness. History of Present Illness Attending Physician: Rashel Reynoso MD History of Present Illness Asked by cardiology to assist in evaluation management this patient who presented with syncopal episode and found to be in complete heart block. History is obtained from discussion with the patient as well as his is at bedside and review of electronic medical record. 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 He is followed by Dr. Herrera in the outpatient setting and is on prednisone and tacrolimus. His creatinine has been stable. The patient was brought to the emergency room today after suffering a syncopal event at home. He had an additional syncopal event in the emergency room was found to be in third-degree heart block. Transcutaneous pacing was initiated and he was taken urgently to the [facility]. A transvenous pacemaker was placed with appropriate capture. His blood pressure improved. He is brought to the ICU post procedure. He continues to experience some nausea unresponsive to Ativan. Patient has not had any antecedent medical issues. He was seen in the emergency room about a month ago after falling off of a ladder. Allergies Allergy/AdvReac Type Severity Reaction Status Date / Time aspirin Allergy Severe Not able Verified 02/23/22 12:31 to swallow Home Medications Medication Instructions Recorded Confirmed Type cholecalciferol (vitamin D3) 50 2,000 units PO QAM tab 08/26/19 02/23/22 History mcg (2,000 unit) tablet tacrolimus 1 mg tablet,extended 3 mg PO QAM 10/21/21 02/23/22 History release 24 hr (Envarsus XR) allopurinol 300 mg tablet 300 mg PO QAM 02/23/22 02/23/22 History atorvastatin 20 mg tablet 20 mg PO HS 02/23/22 02/23/22 History mycophenolate sodium 360 mg 360 mg PO BID 02/23/22 02/23/22 History tablet,delayed release prednisolone 5 mg tablet 5 mg PO QAM 02/23/22 02/23/22 History tamsulosin 0.4 mg capsule 0.4 mg PO HS 02/23/22 02/23/22 History Patient History Medical History Anemia Chronic renal insufficiency Duodenal ulcer GI bleed Hx of gout Hypercholesterolemia Hypertension Obstructive sleep apnea Surgical History Kidney transplant recipient S/P arteriovenous (AV) fistula creation Family History Grandmother (Paternal) Myocardial infarction Denies family history of Ovarian cancer Prostate cancer Breast cancer Colorectal cancer Social History Smoking Status: Unknown if ever smoked Second Hand Exposure: No; Hx Alcohol Use: Yes (Several times a year) Hx Substance Use: No Preferred Language: Wolof marital status: current occupational status: employed Feels Safe at Home: Yes Dental Care, Regularly: Yes Physical Activity Frequency: 5-6 Times per Week Seatbelt Use: always Sunscreen Use: Yes Review of Systems Review of Systems: Please refer to ER notes. No additions or deletions Physical Exam Constitutional: well developed; no acute distress Eyes: no scleral abnormality and no corneal abnormality Neck: normal visual inspection and trachea midline Respiratory: normal respiratory effort Auscultation: lungs clear to auscultation bilaterally Cardiovascular: Rate/Rhythm: regular rate Heart Sounds: normal S1, normal S2 and + murmur Extremities: + pedal edema and + AV fistula Musculoskeletal: Extremities: no cyanosis and no clubbing Skin: normal turgor; no lesions Neurologic: Motor/Sensory: no tremor and no asterixis Psychiatric: Orientation: alert and oriented x 3 Results & Data Results & Data ([facility]) Vital Signs (Past 12 Hours) Vital Signs Temp Pulse Pulse Resp BP BP BP 02/23/22 13:35 80 16 154/85 H 02/23/22 13:20 80 16 172/96 H 02/23/22 12:19 97 H 17 149/74 H 02/23/22 12:18 94 H 16 135/75 02/23/22 12:12 92 H 17 144/86 H 02/23/22 12:05 144 H 02/23/22 12:01 0 L 02/23/22 12:00 32 L 02/23/22 11:40 37 C 60 16 129/72 Pulse Ox 02/23/22 13:35 96 02/23/22 13:20 96 02/23/22 12:19 100 02/23/22 12:18 100 02/23/22 12:12 100 02/23/22 12:05 02/23/22 12:01 02/23/22 12:00 02/23/22 11:40 97 Critical Care Results & Data Vital Signs (Past 12 Hours) Vital Signs Temp Pulse Pulse Resp BP BP BP 02/23/22 13:35 80 16 154/85 H 02/23/22 13:20 80 16 172/96 H 02/23/22 12:19 97 H 17 149/74 H 02/23/22 12:18 94 H 16 135/75 02/23/22 12:12 92 H 17 144/86 H 02/23/22 12:05 144 H 02/23/22 12:01 0 L 02/23/22 12:00 32 L 02/23/22 11:40 37 C 60 16 129/72 Pulse Ox 02/23/22 13:35 96 02/23/22 13:20 96 02/23/22 12:19 100 02/23/22 12:18 100 02/23/22 12:12 100 02/23/22 12:05 02/23/22 12:01 02/23/22 12:00 02/23/22 11:40 97 Lab & Micro Results (Past 24 Hours) RBC 4.20 M/uL (4.7-6.1) L 02/23/22 WBC 8.07 K/uL (4.8-10.8) 02/23/22 Hgb 13.9 g/dL (14.0-18.0) L 02/23/22 Hct 41.3 % (42-52) L 02/23/22 MCV 98.3 fL (80-100) 02/23/22 MCH 33.1 pg (25-34) 02/23/22 MCHC 33.7 g/dL (32-36) 02/23/22 RDW Standard Deviation 47.4 fL (36.4-46.3) H 02/23/22 RDW Coefficient of Variation 13.3 % (11.5-14.5) 02/23/22 Plt Count 99 K/uL (130-400) L 02/23/22 MPV 11.4 fL (7.4-10.4) H 02/23/22 Neutrophils (%) (Auto) 76.3 % 02/23/22 Lymphocytes (%) (Auto) 12.8 % 02/23/22 Monocytes # (Auto) 0.63 K/uL (0.11-0.59) H 02/23/22 Eosinophils # (Auto) 0.21 K/uL (0-0.5) 02/23/22 Immature Granulocyte % (Auto) 0.4 % 02/23/22 Neutrophils # (Auto) 6.16 K/uL (1.4-6.5) 02/23/22 Lymphocytes # (Auto) 1.03 K/uL (1.2-3.4) L 02/23/22 Monocytes # (Auto) 0.63 K/uL (0.11-0.59) H 02/23/22 Eosinophils # (Auto) 0.21 K/uL (0-0.5) 02/23/22 Basophils # (Auto) 0.01 K/uL (0-0.2) 02/23/22 Immature Granulocyte # (Auto) 0.03 K/uL (0.00-0.02) H 02/23/22 Red Blood Cell Morphology Unremarkable 02/23/22 Na 139 mmol/L (136-145) 02/23/22 K TNP 02/23/22 Cl 110 mmol/L (98-107) H 02/23/22 CO2 20 mmol/L (21-32) L 02/23/22 Anion Gap 9 (3-11) 02/23/22 BUN 24 mg/dl (6-23) H 02/23/22 Creatinine 1.61 mg/dl (0.6-1.4) H 02/23/22 Estimated GFR ( Amer) 53.1 ml/min 02/23/22 Estimated GFR (Non-Af Amer) 45.8 ml/min 02/23/22 BUN/Creatinine Ratio 14.9 (10-20) 02/23/22 Glu 154 mg/dl (70-99(Fasting)) H 02/23/22 Ca 9.9 mg/dl (8.5-10.1) 02/23/22 Total Bilirubin 0.9 mg/dl (0.2-1.0) 02/23/22 AST TNP 02/23/22 ALT 17 U/L (7-52) 02/23/22 Alkaline Phosphatase 55 U/L (34-104) 02/23/22 TP 6.2 gm/dl (6.0-8.3) 02/23/22 Albumin 3.8 gm/dl (3.4-5.0) 02/23/22 Globulin 2.4 gm/dl (2.5-4.0) L 02/23/22 Albumin/Globulin Ratio 1.6 (0.9-2) 02/23/22 Mg 1.5 mg/dl (1.7-2.4) L 02/23/22 11:55 02/23/22 Calcium Level 9.9 mg/dl (8.5-10.1) 02/23/22 11:55 02/23/22 Diagnostic Findings (Past 24 Hours) Chest X-Ray 02/23/22 11:51 XR chest 1V portable HISTORY: 61 years-old Male Chest Pain acute atypical chest pain COMPARISON: Chest radiographs 11/28/2021, chest CT 02/07/2022 TECHNIQUE: Portable AP view of the chest FINDINGS: The cardiac silhouette is enlarged. Pulmonary vascular congestion with interstitial coarsening. No pneumothorax, large pleural effusion or lobar airspace consolidation. Degenerative changes of the shoulders and spine. IMPRESSION: Cardiomegaly with pulmonary vascular congestion. ACT 112: Negative or not required by law. The above report was generated using voice recognition software. It may contain grammatical, syntax or spelling errors. Electronically signed by: Ronald Bonilla M.D. 02/23/2022 12:17 PM I & O Totals 24 Hours 02/22/22 02/23/22 02/24/22 06:59 06:59 06:59 Intake Total 500 / 500 Balance 500 / 500 Cumulative 02/23/22 11:31 thru 02/23/22 12:41 Intake Total 500 Balance 500 RT Ventilator Mngmt (Last Documented) Ventilator Ordered Settings Respiratory Rate 16 02/23/22 13:35 Ventilator - PT Measurements Respiratory Rate 16 Coding Level of Care Code Critical Care 1st 30-74 mins Diagnoses Cardiac arrest I46.9 Third degree heart block I44.2 Kidney transplant recipient Z94.0 Nausea & vomiting R11.2
[2022-02-23] MEDS: NORMOSOL-R 1,000 ML IV SCH (14:30)
[2022-02-23 14:58] LABS: Potassium 4.5 mmol/L (3.5-5.1)
[2022-02-23 15:06] LABS: INR 1.2 (0.9-1.1); Partial Thromboplastin Ratio 2.1; Prothrombin Time 12.6 Seconds (9.0-12.0)
[2022-02-23 15:12] LABS: Partial Thromboplastin Time 56.9 Seconds (21.0-31.0)
[2022-02-23 15:44] LABS: Lyme Ab IgM w/WB Rflx Negative (Negative)
[2022-02-23] MEDS: MAGNESIUM SULFATE / D5W 1 GM/100 ML BAG IV SCH ×2 (15:45→17:06)
[2022-02-23 15:46] LABS: Lyme Ab IgG w/WB Rflx Negative (Negative)
[2022-02-23] MEDS: ICU ELECTROLYTE REPLACEMENT PROTOCOL SCH (18:37)
[2022-02-23] MEDS: TAMSULOSIN HCL 0.4 MG CAP PO SCH (21:23)
[2022-02-23] MEDS: ATORVASTATIN 20 MG TAB PO SCH (21:23)
[2022-02-23] MEDS: MYCOPHENOLATE SODIUM 180 MG TAB PO SCH (21:23)
[2022-02-24] MEDS: NORMOSOL-R 1,000 ML IV SCH (04:22)
[2022-02-24 05:46] LABS: Basophils # (auto) 0.02 K/uL (0-0.2); Basophils % (auto) 0.3 %; Eosinophils # (auto) 0.11 K/uL (0-0.5); Eosinophils % (auto) 1.4 %; Hematocrit (blood only) 41.8 % (42-52); Hemoglobin 13.4 g/dL (14.0-18.0); Immature Granulocytes # (auto) 0.03 K/uL (0.00-0.02); Immature Granulocytes % (auto) 0.4 %; Lymphocytes # (auto) 0.52 K/uL (1.2-3.4); Lymphocytes % (auto) 6.5 %; Mean Corpuscular Hemoglobin 31.2 pg (25-34); Mean Corpuscular Hgb Conc 32.1 g/dL (32-36); Mean Corpuscular Volume 97.2 fL (80-100); Mean Platelet Volume 11.4 fL (7.4-10.4); Monocytes # (auto) 0.88 K/uL (0.11-0.59); Monocytes % (auto) 11.1 %; Neutrophils # (auto) 6.39 K/uL (1.4-6.5); Neutrophils % (auto) 80.3 %; Platelet Count 100 K/uL (130-400); RDW Coefficient of Variation 13.5 % (11.5-14.5); RDW Standard Deviation 47.7 fL (36.4-46.3); White Blood Count 7.95 K/uL (4.8-10.8)
[2022-02-24 06:29] LABS: Alanine Aminotransferase 15 U/L (7-52); Albumin Level 3.5 gm/dl (3.4-5.0); Alkaline Phosphatase 52 U/L (34-104); Anion Gap 6 (3-11); Aspartate Aminotransferase 16 U/L (13-39); BUN Creatinine Ratio 15.9 (10-20); Bilirubin Direct 0.2 mg/dl (0-0.2); Blood Urea Nitrogen 25 mg/dl (6-23); Calcium 9.3 mg/dl (8.5-10.1); Carbon Dioxide 23 mmol/L (21-32); Chloride 110 mmol/L (98-107); Est GFR (African American) 54.7 ml/min; Est GFR (Non-African American) 47.2 ml/min; Glucose 100 mg/dl (70-99(Fasting)); Phosphorus 2.4 mg/dl (2.5-4.9); Potassium 4.7 mmol/L (3.5-5.1); Sodium 139 mmol/L (136-145); Total Protein 5.4 gm/dl (6.0-8.3)
[2022-02-24] MEDS: ICU ELECTROLYTE REPLACEMENT PROTOCOL SCH ×2 (07:27→18:28)
--- NOTE | 2022-02-24 07:36 | Critical Care Progress Note ---
Date of Service February 24, 2022 Assessment & Plan (1) Cardiac arrest: (2) Third degree heart block: (3) Kidney transplant recipient: (4) Nausea & vomiting: Plan: Impression: 61-year-old male status post kidney transplant presenting now with third-degree heart block requiring emergent transvenous pacing. 24-hour events: Patient remained hemodynamically stable but paced. Recommendations: 1. Neurologic: No current issues. Continue to follow clinically. 2. Cardiovascular: Third-degree heart block. Lyme serologies are negative. Transvenous pacer in place. Continue pacing. Anticipate permanent pacemaker today. N.p.o. for now. Continue lipid-lowering agent. Elevated troponin however relatively clean coronaries on cardiac catheterization. Formal echocardiogram pending 3. Pulmonary: No current issues. On room air 4. GI: Nausea. Now resolved. NPO. 5. Renal: History of kidney transplant. Nephrology consult pending given renal transplant and immunosuppression regiment. ICU replacement electrolyte protocol to be initiated. 6. Heme-onc: No current issues. Continue to follow clinically. 7. ID: No current issues. 8. Endocrine: Glycemic control per protocol. Once the patient's pacemaker is in place, he can be transferred out of the intensive care unit to the telemetry floor under the care of the hospitalist. Critical care services will sign off once the permanent pacemaker is in place. Discussed on multidisciplinary rounds and with patient and bedside critical care nurse. Admission and Anticipated Discharge Date Admission Date: February 23, 2022 Subjective Patient seen and examined. EMR reviewed. Patient's nausea is resolved. He denies chest pain palpitations. No shortness of breath. He continues to be 100% paced. Review of Systems Review of Systems: All systems reviewed & are unremarkable except as noted in Subjective Physical Exam Constitutional: well developed; no acute distress Eyes: no scleral abnormality and no corneal abnormality Neck: normal visual inspection and trachea midline Respiratory: normal respiratory effort Auscultation: lungs clear to auscultation bilaterally Cardiovascular: Rate/Rhythm: regular rate Heart Sounds: normal S1, normal S2 and + murmur Extremities: + pedal edema and + AV fistula Musculoskeletal: Extremities: no cyanosis and no clubbing Skin: normal turgor; no lesions Neurologic: Motor/Sensory: no tremor and no asterixis Psychiatric: Orientation: alert and oriented x 3 Results & Data Results & Data ([facility]) Vital Signs (Past 12 Hours) Vital Signs Temp Pulse Resp BP Pulse Ox 02/24/22 05:31 88 28 H 89/47 L 98 02/24/22 05:00 80 15 87/51 L 02/24/22 04:30 80 18 99/66 L 97 02/24/22 04:00 80 14 99/64 L 95 02/24/22 03:00 80 16 93/60 L 96 02/24/22 02:30 80 19 95/65 L 96 02/24/22 02:00 80 17 02/24/22 01:30 80 15 100/61 95 02/24/22 01:00 81 18 02/24/22 00:30 80 16 105/62 94 02/24/22 00:03 36.8 C 83 17 83/58 L 02/24/22 00:00 80 17 98 02/23/22 23:54 80 02/23/22 23:00 80 16 92/63 L 02/23/22 22:50 80 22 98/59 L 97 02/23/22 22:40 84 16 91/69 L 02/23/22 22:30 106 H 14 95/66 L 02/23/22 22:00 81 16 90/62 L 02/23/22 21:50 82 25 H 92/73 L 98 02/23/22 21:40 86 19 99/68 L 02/23/22 21:30 80 18 94/66 L 96 02/23/22 21:21 87 17 84/64 L 96 02/23/22 21:10 81 16 107/62 94 02/23/22 21:00 80 19 111/75 95 02/23/22 20:50 82 16 100/65 95 02/23/22 20:40 82 22 94/64 L 96 02/23/22 20:30 80 16 92/68 L 97 02/23/22 20:21 80 17 108/64 97 02/23/22 20:10 85 23 110/76 97 02/23/22 20:01 81 26 H 116/76 98 02/23/22 20:00 86 18 97 02/23/22 19:50 80 18 139/81 98 02/23/22 19:40 82 17 121/88 97 Critical Care Results & Data Vital Signs (Past 12 Hours) Vital Signs Temp Pulse Resp BP Pulse Ox 02/24/22 05:31 88 28 H 89/47 L 98 02/24/22 05:00 80 15 87/51 L 02/24/22 04:30 80 18 99/66 L 97 02/24/22 04:00 80 14 99/64 L 95 02/24/22 03:00 80 16 93/60 L 96 02/24/22 02:30 80 19 95/65 L 96 02/24/22 02:00 80 17 02/24/22 01:30 80 15 100/61 95 02/24/22 01:00 81 18 02/24/22 00:30 80 16 105/62 94 02/24/22 00:03 36.8 C 83 17 83/58 L 02/24/22 00:00 80 17 98 02/23/22 23:54 80 02/23/22 23:00 80 16 92/63 L 02/23/22 22:50 80 22 98/59 L 97 02/23/22 22:40 84 16 91/69 L 02/23/22 22:30 106 H 14 95/66 L 02/23/22 22:00 81 16 90/62 L 02/23/22 21:50 82 25 H 92/73 L 98 02/23/22 21:40 86 19 99/68 L 02/23/22 21:30 80 18 94/66 L 96 02/23/22 21:21 87 17 84/64 L 96 02/23/22 21:10 81 16 107/62 94 02/23/22 21:00 80 19 111/75 95 02/23/22 20:50 82 16 100/65 95 02/23/22 20:40 82 22 94/64 L 96 02/23/22 20:30 80 16 92/68 L 97 02/23/22 20:21 80 17 108/64 97 02/23/22 20:10 85 23 110/76 97 02/23/22 20:01 81 26 H 116/76 98 02/23/22 20:00 86 18 97 02/23/22 19:50 80 18 139/81 98 02/23/22 19:40 82 17 121/88 97 Lab & Micro Results (Past 24 Hours) RBC 4.30 M/uL (4.7-6.1) L 02/24/22 WBC 7.95 K/uL (4.8-10.8) 02/24/22 Hgb 13.4 g/dL (14.0-18.0) L 02/24/22 Hct 41.8 % (42-52) L 02/24/22 MCV 97.2 fL (80-100) 02/24/22 MCH 31.2 pg (25-34) 02/24/22 MCHC 32.1 g/dL (32-36) 02/24/22 RDW Standard Deviation 47.7 fL (36.4-46.3) H 02/24/22 RDW Coefficient of Variation 13.5 % (11.5-14.5) 02/24/22 Plt Count 100 K/uL (130-400) L 02/24/22 MPV 11.4 fL (7.4-10.4) H 02/24/22 Neutrophils (%) (Auto) 80.3 % 02/24/22 Lymphocytes (%) (Auto) 6.5 % 02/24/22 Monocytes # (Auto) 0.88 K/uL (0.11-0.59) H 02/24/22 Eosinophils # (Auto) 0.11 K/uL (0-0.5) 02/24/22 Immature Granulocyte % (Auto) 0.4 % 02/24/22 Neutrophils # (Auto) 6.39 K/uL (1.4-6.5) 02/24/22 Lymphocytes # (Auto) 0.52 K/uL (1.2-3.4) L 02/24/22 Monocytes # (Auto) 0.88 K/uL (0.11-0.59) H 02/24/22 Eosinophils # (Auto) 0.11 K/uL (0-0.5) 02/24/22 Basophils # (Auto) 0.02 K/uL (0-0.2) 02/24/22 Immature Granulocyte # (Auto) 0.03 K/uL (0.00-0.02) H 02/24/22 Red Blood Cell Morphology Unremarkable 02/23/22 Na 139 mmol/L (136-145) 02/24/22 K 4.7 mmol/L (3.5-5.1) 02/24/22 Cl 110 mmol/L (98-107) H 02/24/22 CO2 23 mmol/L (21-32) 02/24/22 Anion Gap 6 (3-11) 02/24/22 BUN 25 mg/dl (6-23) H 02/24/22 Creatinine 1.57 mg/dl (0.6-1.4) H 02/24/22 Estimated GFR ( Amer) 54.7 ml/min 02/24/22 Estimated GFR (Non-Af Amer) 47.2 ml/min 02/24/22 BUN/Creatinine Ratio 15.9 (10-20) 02/24/22 Glu 100 mg/dl (70-99(Fasting)) H 02/24/22 Ca 9.3 mg/dl (8.5-10.1) 02/24/22 Phosphorus Level 2.4 mg/dl (2.5-4.9) L 02/24/22 Total Bilirubin 1.0 mg/dl (0.2-1.0) 02/24/22 Direct Bilirubin 0.2 mg/dl (0-0.2) 02/24/22 AST 16 U/L (13-39) 02/24/22 ALT 15 U/L (7-52) 02/24/22 Alkaline Phosphatase 52 U/L (34-104) 02/24/22 TP 5.4 gm/dl (6.0-8.3) L 02/24/22 Albumin 3.5 gm/dl (3.4-5.0) 02/24/22 Globulin 2.4 gm/dl (2.5-4.0) L 02/23/22 Albumin/Globulin Ratio 1.6 (0.9-2) 02/23/22 Mg 2.0 mg/dl (1.7-2.4) 02/24/22 05:23 02/24/22 Calcium Level 9.3 mg/dl (8.5-10.1) 02/24/22 05:23 02/24/22 Prothromb Time International Ratio 1.2 (0.9-1.1) H 02/23/22 14:27 02/23/22 Diagnostic Findings (Past 24 Hours) Chest X-Ray 02/23/22 11:51 XR chest 1V portable HISTORY: 61 years-old Male Chest Pain acute atypical chest pain COMPARISON: Chest radiographs 11/28/2021, chest CT 02/07/2022 TECHNIQUE: Portable AP view of the chest FINDINGS: The cardiac silhouette is enlarged. Pulmonary vascular congestion with interstitial coarsening. No pneumothorax, large pleural effusion or lobar airspace consolidation. Degenerative changes of the shoulders and spine. IMPRESSION: Cardiomegaly with pulmonary vascular congestion. ACT 112: Negative or not required by law. The above report was generated using voice recognition software. It may contain grammatical, syntax or spelling errors. Electronically signed by: Ronald Bonilla M.D. 02/23/2022 12:17 PM I & O Totals 24 Hours 02/23/22 02/24/22 02/25/22 06:59 06:59 06:59 Intake Total 1511.333 / 1511.333 Output Total 1050 / 1050 Balance 461.333 / 461.333 Cumulative 02/23/22 11:31 thru 02/24/22 06:49 Intake Total 1511.333 Output Total 1050 Balance 461.333 RT Ventilator Mngmt (Last Documented) Ventilator Ordered Settings Respiratory Rate 28 02/24/22 05:31 Ventilator - PT Measurements Respiratory Rate 28 Coding Level of Care Code 70190 Subseq Hosp Care Lvl 2 Diagnoses Cardiac arrest I46.9 Third degree heart block I44.2 Kidney transplant recipient Z94.0 Nausea & vomiting R11.2
--- NOTE | 2022-02-24 08:11 | Hospitalist Progress Note ---
Date of Service February 24, 2022 Assessment & Plan (1) Third degree heart block: Plan: Presents with cardiac arrest and third-degree heart block causing syncope Transcutaneously paced in the ER for brief round of CPR Transferred urgently to cardiac Shipping And Receiving Specialist for transvenous pacer placement, left heart cath with minimal nonobstructive coronary artery disease and normal filling pressures Lyme titer negative, TSH normal Troponin mildly elevated on arrival at 53. ECG with third-degree heart block and new right bundle branch block - transvenous pacing and plan for PPM 02/24/22 (2) Nausea & vomiting: Plan: Related to syncope and heart block Now resolved Antiemetics as needed-Zofran, Phenergan, Ativan as needed Continue IV fluids Advance diet as tolerated (3) Cardiac arrest: Plan: Secondary to third-degree heart block (4) Bundle branch block, right: Plan: New onset Cardiac cath with minimal nonobstructive disease Suspect intrinsic conduction system disease for permanent pacemaker on 02/24/2022 (5) Kidney transplant recipient: Plan: Remains on prednisolone, mycophenolate, and tacrolimus-continue all these meds- his tacrolimus XR will have to be brought in from home Nephrology has been consulted Creatinine stable despite events (6) Anemia: Plan: Hemoglobin mildly low at 13.9, borderline macrocytic, with mildly low platelets Likely secondary to immune suppression plus chronic kidney disease (7) Secondary hyperparathyroidism of renal origin: Plan: Noted, followed by nephrology (8) CKD (chronic kidney disease) stage 3, GFR 30-59 ml/min: (9) Obstructive sleep apnea: Plan: Not on CPAP therapy (10) Hx of gout: Plan: Hold home allopurinol for now (11) Hypercholesterolemia: Plan: Continue statin Plan: DVT prophylaxis-SCDs Disposition-admit to ICU Admission and Anticipated Discharge Date Admission Date: February 23, 2022 Subjective Pt is doing well feels much better with temporary pacemaker, no shortness of breath Review of Systems Review of Systems: Mild distress and fatigue no headache, no visual changes no speech or swallowing issues no chest pain, pressure or palpitations Temporary pacer in right IJ no shortness of breath, cough or wheezes no abdominal pain, nausea or vomiting, diarrhea or constipation no dysuria, hematuria or frequency no focal joint pain or swelling no back pain, CVA tenderness or radicular pain no bruising, bleeding or rashes no focal signs of weakness or numbness or altered sensation no complaints of anxiety or depression.. Physical Exam Physical Exam: The patient appeared well nourished and normally developed. Vital signs as documented. Head exam is normocephalic atraumatic Neck is without JVD, thyromegaly, or carotid bruits. Temporary pacer in the right IJ Lungs are clear to auscultation, no focal loss of breath sounds Cardiac exam, Rhythm is regular.. He has not paced but definitely has Mobitz type II on monitor Abdominal exam reveals normal bowel sounds, soft non tender, no masses Extremities are nonedematous and both pedal pulses are present Neurologic exam is alert and oriented, no focal loss of strength or sensation Skin is without bruises or rashes Psychologically is without concerns for anxiety or depression.. Results & Data Results & Data ([facility]) Vital Signs (Past 12 Hours) Vital Signs Temp Pulse Resp BP Pulse Ox 02/24/22 05:31 88 28 H 89/47 L 98 02/24/22 05:00 80 15 87/51 L 02/24/22 04:30 80 18 99/66 L 97 02/24/22 04:00 80 14 99/64 L 95 02/24/22 03:00 80 16 93/60 L 96 02/24/22 02:30 80 19 95/65 L 96 02/24/22 02:00 80 17 02/24/22 01:30 80 15 100/61 95 02/24/22 01:00 81 18 02/24/22 00:30 80 16 105/62 94 02/24/22 00:03 98.2 F 83 17 83/58 L 02/24/22 00:00 80 17 98 02/23/22 23:54 80 02/23/22 23:00 80 16 92/63 L 02/23/22 22:50 80 22 98/59 L 97 02/23/22 22:40 84 16 91/69 L 02/23/22 22:30 106 H 14 95/66 L 02/23/22 22:00 81 16 90/62 L 02/23/22 21:50 82 25 H 92/73 L 98 02/23/22 21:40 86 19 99/68 L 02/23/22 21:30 80 18 94/66 L 96 02/23/22 21:21 87 17 84/64 L 96 02/23/22 21:10 81 16 107/62 94 02/23/22 21:00 80 19 111/75 95 02/23/22 20:50 82 16 100/65 95 02/23/22 20:40 82 22 94/64 L 96 02/23/22 20:30 80 16 92/68 L 97 02/23/22 20:21 80 17 108/64 97 02/23/22 20:10 85 23 110/76 97 PG Care Time/CCT Total # of Minutes Spent Total Time Spent with Patient: Total time spent is greater than 50% in coordination of care (as documented) at patient's floor/unit and/or counseling patient: Coding Level of Care Code 61819 Subseq Hosp Care Lvl 3 Diagnoses Third degree heart block I44.2 Nausea & vomiting R11.2 Cardiac arrest I46.9 Bundle branch block, right I45.10 Kidney transplant recipient Z94.0 Anemia D64.9 Secondary hyperparathyroidism of renal origin N25.81 CKD (chronic kidney disease) stage 3, GFR 30-59 ml/min N18.30 Obstructive sleep apnea G47.33 Hx of gout Z87.39 Hypercholesterolemia E78.00
[2022-02-24] MEDS: POT PHOSPHATE MONOBASIC W/ SOD TAB PO SCH ×3 (09:00→17:34)
[2022-02-24] MEDS: ENVARSUS PO SCH (09:00)
[2022-02-24] MEDS ORDERED: ENVARSUS PO SCH (09:00)
[2022-02-24] MEDS ORDERED: prednisoLONE sod phosphate 15 MG/5 ML UDP PO SCH (09:00)
[2022-02-24] MEDS: MYCOPHENOLATE SODIUM 180 MG TAB PO SCH ×2 (09:00→20:51)
[2022-02-24] MEDS: MAGNESIUM SULFATE / D5W 1 GM/100 ML BAG IV SCH ×2 (09:03→11:09)
--- NOTE | 2022-02-24 09:52 | Nephrology Consultation ---
Date of Consultation February 24, 2022 Assessment & Plan (1) Kidney transplant recipient: (2) Third degree heart block: (3) Cardiac arrest: (4) Chronic kidney disease, stage 3a: 61-year-old male with history of renal transplant with decent allograft function, baseline creatinine 1.6, admitted at after of out of hospital cardiac arrest secondary to complete heart block. Had transvenous pacer and cardiac catheterization yesterday showing minimum coronary artery disease. Currently clinically stable and plan for permanent pacemaker this afternoon. Renal function staying stable at baseline, blood pressure relatively low but asymptomatic. Has been voiding normally. No sign of volume overload. Hb acceptable. -- Continue current immunosuppressive medication CellCept 360 twice a day, prednisone 5 mg and tacrolimus 3 mg extended release once a day -- monitor renal function and electrolyte closely with recent IV contrast exposure and relatively low blood pressure. Will follow Thank you for allowing me to participate in your patient's care. It was a pleasure to see Nura. the History of Present Illness Attending Physician: Ahmet Anthony MD History of Present Illness Nura Carbajal is a 61-year-old male with PMH Significant for history of renal transplant, gout, hyperlipidemia, HTN admitted after cardiac arrest and found to have complete heart block. nephrology consult was requested to manage immunosuppressive medications. EMR records are reviewed in detail during patient's visit. Nura was in his usual state of health and went to work yesterday and he had a syncopal episode and passed out. EMS was called and he was found to have ectopy and a second-degree heart block type II. He had an additional episode of syncope en route with complete heart block on monitor.In ER, he had another episode of syncope with sinus arrest and had a brief period of CPR and a CODE BLUE. A transcutaneous pacer was placed and he was taken to the [facility] for emergent transvenous pacer placement.Left heart cath showed minimal nonobstructive coronary artery disease. 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 has been having decent renal function since transplant with baseline creatinine staying around 1.6. No history of any rejection or opportunistic infection. Currently on tacrolimus 3 mg extended release, Cellcept 360 mg twice a day and prednisone 5 mg daily. Non smoker. Sister has h/o ESRD s/p transplant, Not known to have any hereditary disease. Works part time, has been in good health. . BP has been generally well controlled, Prior to transplant his blood pressure was running high however since transplant he has not been requiring any antihypertensive medications. On Atorvastatin. On Tamsulosin for BPH. Overall he has been feeling well this morning. BP relatively. Renal function stable at baseline. Allergies Allergy/AdvReac Type Severity Reaction Status Date / Time aspirin Allergy Severe Not able Verified 02/23/22 12:31 to swallow Home Medications Medication Instructions Recorded Confirmed Type cholecalciferol (vitamin D3) 50 2,000 units PO QAM tab 08/26/19 02/23/22 History mcg (2,000 unit) tablet tacrolimus 1 mg tablet,extended 3 mg PO QAM 10/21/21 02/23/22 History release 24 hr (Envarsus XR) allopurinol 300 mg tablet 300 mg PO QAM 02/23/22 02/23/22 History atorvastatin 20 mg tablet 20 mg PO HS 02/23/22 02/23/22 History mycophenolate sodium 360 mg 360 mg PO BID 02/23/22 02/23/22 History tablet,delayed release prednisolone 5 mg tablet 5 mg PO QAM 02/23/22 02/23/22 History tamsulosin 0.4 mg capsule 0.4 mg PO HS 02/23/22 02/23/22 History Patient History Medical History (Updated 02/24/22 @ 10:02 by Joy Medina MD) Anemia Chronic kidney disease, stage 3a Chronic renal insufficiency CKD (chronic kidney disease) stage 3, GFR 30-59 ml/min Duodenal ulcer GI bleed Hx of gout Hypercholesterolemia Hypertension Obstructive sleep apnea Surgical History Kidney transplant recipient S/P arteriovenous (AV) fistula creation Family History Grandmother (Paternal) Myocardial infarction Denies family history of Ovarian cancer Prostate cancer Breast cancer Colorectal cancer Social History Smoking Status: Never smoker Second Hand Exposure: No; Hx Alcohol Use: No Hx Substance Use: No Preferred Language: Yakut Communication Ability: Effective Talent Coordinator Required: No Beliefs That Will Affect Care: None marital status: Current Living Situation: Spouse current occupational status: employed Feels Safe at Home: Yes Safety Concerns: Feels Safe At This Time Dental Care, Regularly: Yes Physical Activity Frequency: 5-6 Times per Week Seatbelt Use: always Sunscreen Use: Yes Review of Systems Review of Systems: detailed review of system was otherwise unremarkable. Physical Exam Constitutional: WD/WN, vitals as above no acute distress Eyes: + anicteric sclerae Neck: normal visual inspection Respiratory: no respiratory distress and no cough Auscultation: lungs clear to auscultation bilaterally Cardiovascular: Rate/Rhythm: regular rate and regular rhythm Extremities: + AV fistula ( Left BC AVF with thrill and bruit.); no edema Gastrointestinal (Abdomen): Inspection/Auscultation: abdomen normal to inspection Musculoskeletal: Extremities: extremities normal to inspection Skin: no rashes Neurologic: no focal motor deficits Psychiatric: Orientation: alert and oriented x 3 Affect: euthymic affect Results & Data ([facility]) Vital Signs (Past 12 Hours) Vital Signs Temp Pulse Resp BP Pulse Ox 02/24/22 09:30 66 17 95 02/24/22 09:20 66 16 96 02/24/22 09:10 66 15 97 02/24/22 09:00 68 11 L 95 02/24/22 08:50 68 23 98 02/24/22 08:40 82 19 97 02/24/22 08:32 80 16 99/70 L 100 02/24/22 08:30 88 26 H 96 02/24/22 08:20 82 2 L 98 02/24/22 08:10 80 22 97 02/24/22 08:00 80 15 99 02/24/22 07:50 80 17 97 02/24/22 07:40 80 17 97 02/24/22 07:30 80 17 103/70 95 02/24/22 07:20 84 19 98 02/24/22 07:10 80 9 L 97 02/24/22 07:00 80 0 L 02/24/22 06:50 83 5 L 02/24/22 06:40 80 16 02/24/22 06:30 80 16 95/56 L 02/24/22 06:20 80 15 02/24/22 06:10 80 17 02/24/22 06:00 82 16 02/24/22 05:50 83 17 02/24/22 05:40 81 18 02/24/22 05:31 88 28 H 89/47 L 98 02/24/22 05:00 80 15 87/51 L 02/24/22 04:30 80 18 99/66 L 97 02/24/22 04:00 80 14 99/64 L 95 02/24/22 03:00 80 16 93/60 L 96 02/24/22 02:30 80 19 95/65 L 96 02/24/22 02:00 80 17 02/24/22 01:30 80 15 100/61 95 02/24/22 01:00 81 18 02/24/22 00:30 80 16 105/62 94 02/24/22 00:03 36.8 C 83 17 83/58 L 02/24/22 00:00 80 17 98 02/23/22 23:54 80 02/23/22 23:00 80 16 92/63 L 02/23/22 22:50 80 22 98/59 L 97 02/23/22 22:40 84 16 91/69 L 02/23/22 22:30 106 H 14 95/66 L 02/23/22 22:00 81 16 90/62 L 02/23/22 21:50 82 25 H 92/73 L 98 PG Care Time/CCT Total # of Minutes Spent Total Time Spent with Patient: Total time spent is greater than 50% in coordination of care (as documented) at patient's floor/unit and/or counseling patient: Coding Level of Care Code 26016 Inpt Consult Level 5 Diagnoses Kidney transplant recipient Z94.0 Third degree heart block I44.2 Cardiac arrest I46.9 Chronic kidney disease, stage 3a N18.31
[2022-02-24] MEDS: prednisoLONE sod phosphate 15 MG/5 ML PO SCH (11:11)
[2022-02-24] MEDS ORDERED: MIDAZOLAM HCL 5 MG/ML 1 ML VIAL ONE ×2 (14:27→15:01)
[2022-02-24] MEDS ORDERED: fentaNYL citrate 100 MCG/2 ML VIAL ONE ×2 (14:27→15:01)
[2022-02-24] MEDS ORDERED: ceFAZolin 330 MG/ML 1 GM VIAL ONE (14:27)
[2022-02-24] MEDS ORDERED: VANCOMYCIN HCL 1000MG/20ML VIAL ONE (14:29)
[2022-02-24] MEDS ORDERED: BUPIVACAINE 0.25% 30 ML VIAL ONE (14:29)
[2022-02-24] MEDS ORDERED: WATER, STERILE FOR INJ 10 ML VIAL ONE (14:29)
[2022-02-24] MEDS ORDERED: LIDOCAINE 1% LOCAL 20 ML VIAL ONE (14:29)
--- NOTE | 2022-02-24 14:30 | Pre Anesthesia Assessment ---
Date of Service February 24, 2022 Pre Sedation Assessment Vital Signs Temp Pulse Pulse Resp BP BP BP 02/24/22 14:06 36.5 C 78 18 112/70 02/24/22 13:47 67 16 119/67 02/24/22 13:00 36.5 C 70 66 16 100/58 L 100/58 L 02/24/22 12:30 61 15 107/54 L 02/24/22 12:00 65 17 02/24/22 11:30 67 16 108/64 02/24/22 11:00 60 16 02/24/22 10:30 66 17 02/24/22 10:00 66 15 104/63 02/24/22 09:30 66 17 02/24/22 09:20 66 16 02/24/22 09:10 66 15 02/24/22 09:00 68 11 L 02/24/22 08:50 68 23 02/24/22 08:40 82 19 02/24/22 08:32 80 16 99/70 L 02/24/22 08:30 88 26 H 02/24/22 08:20 82 2 L 02/24/22 08:10 80 22 02/24/22 08:00 80 15 02/24/22 07:50 80 17 02/24/22 07:40 80 17 02/24/22 07:30 80 17 103/70 02/24/22 07:20 84 19 02/24/22 07:10 80 9 L 02/24/22 07:00 80 0 L 02/24/22 06:50 83 5 L 02/24/22 06:40 80 16 02/24/22 06:30 80 16 95/56 L 02/24/22 06:20 80 15 02/24/22 06:10 80 17 02/24/22 06:00 82 16 02/24/22 05:50 83 17 02/24/22 05:40 81 18 02/24/22 05:31 88 28 H 89/47 L 02/24/22 05:00 80 15 87/51 L 02/24/22 04:30 80 18 99/66 L 02/24/22 04:00 80 14 99/64 L 02/24/22 03:00 80 16 93/60 L 02/24/22 02:30 80 19 95/65 L 06/07/22 02:00 80 17 02/24/22 01:30 80 15 100/61 02/24/22 01:00 81 18 02/24/22 00:30 80 16 105/62 02/24/22 00:03 36.8 C 83 17 83/58 L 02/24/22 00:00 80 17 02/23/22 23:54 80 02/23/22 23:00 80 16 92/63 L 02/23/22 22:50 80 22 98/59 L 02/23/22 22:40 84 16 91/69 L 02/23/22 22:30 106 H 14 95/66 L 02/23/22 22:00 81 16 90/62 L 02/23/22 21:50 82 25 H 92/73 L 02/23/22 21:40 86 19 99/68 L 02/23/22 21:30 80 18 94/66 L 02/23/22 21:21 87 17 84/64 L 02/23/22 21:10 81 16 107/62 02/23/22 21:00 80 19 111/75 02/23/22 20:50 82 16 100/65 02/23/22 20:40 82 22 94/64 L 02/23/22 20:30 80 16 92/68 L 02/23/22 20:21 80 17 108/64 02/23/22 20:10 85 23 110/76 02/23/22 20:01 81 26 H 116/76 02/23/22 20:00 86 18 02/23/22 19:50 80 18 139/81 02/23/22 19:40 82 17 121/88 02/23/22 19:30 81 17 110/74 02/23/22 19:20 80 16 123/72 02/23/22 19:10 94 H 18 133/87 02/23/22 19:00 86 15 108/83 02/23/22 18:10 36.6 C 80 14 122/76 02/23/22 18:00 36.5 C 80 18 125/93 02/23/22 17:10 36.6 C 80 18 117/77 02/23/22 17:00 36.5 C 80 20 118/89 02/23/22 16:10 36.5 C 80 18 119/74 02/23/22 16:00 36.4 C L 80 16 120/74 02/23/22 15:10 36.4 C L 80 15 117/73 02/23/22 15:00 36.5 C 80 14 127/73 02/23/22 14:40 34.4 C L 80 16 116/74 02/23/22 14:30 36.3 C L 81 20 116/74 Pulse Ox 02/24/22 14:06 98 02/24/22 13:47 94 02/24/22 13:00 98 02/24/22 12:30 02/24/22 12:00 02/24/22 11:30 96 02/24/22 11:00 02/24/22 10:30 97 02/24/22 10:00 02/24/22 09:30 95 02/24/22 09:20 96 02/24/22 09:10 97 02/24/22 09:00 95 02/24/22 08:50 98 02/24/22 08:40 97 02/24/22 08:32 100 02/24/22 08:30 96 02/24/22 08:20 98 02/24/22 08:10 97 02/24/22 08:00 99 02/24/22 07:50 97 02/24/22 07:40 97 02/24/22 07:30 95 02/24/22 07:20 98 02/24/22 07:10 97 02/24/22 07:00 02/24/22 06:50 02/24/22 06:40 02/24/22 06:30 02/24/22 06:20 02/24/22 06:10 02/24/22 06:00 02/24/22 05:50 02/24/22 05:40 02/24/22 05:31 98 02/24/22 05:00 02/24/22 04:30 97 02/24/22 04:00 95 02/24/22 03:00 96 02/24/22 02:30 96 02/24/22 02:00 02/24/22 01:30 95 02/24/22 01:00 02/24/22 00:30 94 02/24/22 00:03 02/24/22 00:00 98 02/23/22 23:54 02/23/22 23:00 02/23/22 22:50 97 02/23/22 22:40 06/06/22 22:30 02/23/22 22:00 02/23/22 21:50 98 02/23/22 21:40 02/23/22 21:30 96 02/23/22 21:21 96 02/23/22 21:10 94 02/23/22 21:00 95 02/23/22 20:50 95 02/23/22 20:40 96 02/23/22 20:30 97 02/23/22 20:21 97 02/23/22 20:10 97 02/23/22 20:01 98 02/23/22 20:00 97 02/23/22 19:50 98 02/23/22 19:40 97 02/23/22 19:30 96 02/23/22 19:20 97 02/23/22 19:10 97 02/23/22 19:00 95 02/23/22 18:10 98 02/23/22 18:00 99 02/23/22 17:10 98 02/23/22 17:00 99 02/23/22 16:10 100 02/23/22 16:00 99 02/23/22 15:10 99 02/23/22 15:00 98 02/23/22 14:40 99 02/23/22 14:30 99 Cardiovascular + irregularly irregular Respiratory + respiratory effort normal Pre-Sedation Airway Assessment Smoking Status: Never smoker Hx Sleep Apnea: No Hx Difficult Intubation: No Short, Thick Neck: No Thyromental Distance: > or= 3.5 Finger Breadths Oral Cavity: + WNL Mallampati Class: III ASA: ASA3 NPO Status Date of Last Intake of Fluids: 02/24/22 Date of Last Intake of Solid Food: 02/23/22 Procedure Planning Contraindications for Sedation: none Current Medications Reviewed: Yes Notes The planned sedation has been discussed with the patient. Informed Consent was obtained. I have identified the patient, determined the appropriateness of sedation and have assessed the patient immediately prior to the procedure. All medicine(s) and interventions are by my order.
[2022-02-24] MEDS ORDERED: oxyCODONE HCL IR 5 MG TAB (IMMEDIATE RELEASE) PO PRN (16:04)
--- NOTE | 2022-02-24 16:04 | Post Anesthesia Assessment ---
Date of Service February 24, 2022 Post Sedation Assessment Vital Signs Temp Pulse Pulse Resp BP BP Pulse Ox 02/24/22 14:06 36.5 C 78 18 112/70 98 02/24/22 13:47 67 16 119/67 94 02/24/22 13:00 36.5 C 70 66 16 100/58 L 100/58 L 98 02/24/22 12:30 61 15 107/54 L 02/24/22 12:00 65 17 02/24/22 11:30 67 16 108/64 96 02/24/22 11:00 60 16 02/24/22 10:30 66 17 97 02/24/22 10:00 66 15 104/63 02/24/22 09:30 66 17 95 02/24/22 09:20 66 16 96 02/24/22 09:10 66 15 97 02/24/22 09:00 68 11 L 95 02/24/22 08:50 68 23 98 02/24/22 08:40 82 19 97 02/24/22 08:32 80 16 99/70 L 100 02/24/22 08:30 88 26 H 96 02/24/22 08:20 82 2 L 98 02/24/22 08:10 80 22 97 02/24/22 08:00 80 15 99 02/24/22 07:50 80 17 97 02/24/22 07:40 80 17 97 02/24/22 07:30 80 17 103/70 95 02/24/22 07:20 84 19 98 02/24/22 07:10 80 9 L 97 02/24/22 07:00 80 0 L 02/24/22 06:50 83 5 L 02/24/22 06:40 80 16 02/24/22 06:30 80 16 95/56 L 02/24/22 06:20 80 15 02/24/22 06:10 80 17 02/24/22 06:00 82 16 02/24/22 05:50 83 17 02/24/22 05:40 81 18 02/24/22 05:31 88 28 H 89/47 L 98 02/24/22 05:00 80 15 87/51 L 02/24/22 04:30 80 18 99/66 L 97 02/24/22 04:00 80 14 99/64 L 95 02/24/22 03:00 80 16 93/60 L 96 02/24/22 02:30 80 19 95/65 L 96 02/24/22 02:00 80 17 02/24/22 01:30 80 15 100/61 95 02/24/22 01:00 81 18 02/24/22 00:30 80 16 105/62 94 02/24/22 00:03 36.8 C 83 17 83/58 L 02/24/22 00:00 80 17 98 02/23/22 23:54 80 02/23/22 23:00 80 16 92/63 L 02/23/22 22:50 80 22 98/59 L 97 02/23/22 22:40 84 16 91/69 L 02/23/22 22:30 106 H 14 95/66 L 02/23/22 22:00 81 16 90/62 L 02/23/22 21:50 82 25 H 92/73 L 98 02/23/22 21:40 86 19 99/68 L 02/23/22 21:30 80 18 94/66 L 96 02/23/22 21:21 87 17 84/64 L 96 02/23/22 21:10 81 16 107/62 94 02/23/22 21:00 80 19 111/75 95 02/23/22 20:50 82 16 100/65 95 02/23/22 20:40 82 22 94/64 L 96 02/23/22 20:30 80 16 92/68 L 97 02/23/22 20:21 80 17 108/64 97 02/23/22 20:10 85 23 110/76 97 02/23/22 20:01 81 26 H 116/76 98 02/23/22 20:00 86 18 97 02/23/22 19:50 80 18 139/81 98 02/23/22 19:40 82 17 121/88 97 02/23/22 19:30 81 17 110/74 96 02/23/22 19:20 80 16 123/72 97 02/23/22 19:10 94 H 18 133/87 97 02/23/22 19:00 86 15 108/83 95 02/23/22 18:10 36.6 C 80 14 122/76 98 02/23/22 18:00 36.5 C 80 18 125/93 99 02/23/22 17:10 36.6 C 80 18 117/77 98 02/23/22 17:00 36.5 C 80 20 118/89 99 02/23/22 16:10 36.5 C 80 18 119/74 100 Recovery Score Activity: Moves 4 extremities Respiration: Deep Breath/Cough Circulation: +/-20% PreAnes Value Consciousness: Arouseable (by name) Post Anesthesia Score: 8 Discharge Sedation Level of Care: Fast Track Phase II Post Sedation Plan On clinical assessment, the patient appears to have tolerated the sedation without complications. Patient is recovering as anticipated. Patient will continue to be monitored by nursing and may be discharged when sedation discharge criteria are met per below protocol. Upon Completions of procedure up to 15 minutes continue every 5 minute vital signs and the P.A.R. score; then discharge to a Phase I or Fast Track to Phase II per the following guidelines: * Discharge Patient to appropriate Phase II area if PAR is 8 or greater or return to pre- procedure baseline. The post - procedure orders will be as directed. * If PAR score is less than 8 or not return to pre-procedure baseline then patient will follow Phase I monitoring till PAR is reached for Phase II. The Phase I may be done in procedure room or may call to secure a Phase I area. * If naloxone or flumazenil are used for reversal, hold in Phase I for contin ued monitoring from when last reversal dose was given for a minimum of 60 minutes or longer pending the nurse and/or physician discretion of patient condition before discharge to Phase II. Please call the Sedation Physician to re-evaluate and complete post-note for discharge to Phase II area. Do NOT discharge from procedure sedation or Phase 1 until post- sedation evaluation note is complete by procedure /sedation MD Sedation Discharge Instructions to be given to the patient at discharge to home.
--- NOTE | 2022-02-24 16:04 | Electrophysiology Report ---
Date of Service February 24, 2022 Electrophysiology Procedure Electrophysiology Procedure Report Procedure performed: Implantation of dual-chamber permanent pacemaker with left bundle pacing lead Staff entertainment lawyer: Rashel Casanova MD Indication: The patient is a 61-year-old gentleman who presented with syncope and intermittent complete heart block. He required temporary transvenous pacing. There not appear to be any reversible cause. Based on symptomatic nonreversible AV node dysfunction is felt be a good candidate for dual-chamber permanent pacemaker. Dual-chamber device was selected as he is currently in sinus rhythm and wished to maintain AV synchrony. Procedure in detail: The patient was informed of the risks benefits and alternatives to the intended procedure and she wished to proceed. The was taken to the electrophysiology suite in a fasting state. A preoperative antibiotic had been administered. The patient was monitored electrocardiographically throughout today's procedure and conscious sedation was administered per protocol. The right upper pectoral area was prepped and draped in usual sterile fashion. This area was anesthetized using subcutaneous administration of a xylocaine solution. An incision was made at this site and carried down to the prepectoralis fascia using sharp dissection. Electrocautery was also employed for dissection as well as for hemostasis. A device pocket was fashioned tissues above the pectoralis muscle. Limited right axillary venography was performed in order to identify a suitable target vessel. Subsequent to this maneuver the left axillary vein was accessed using modified Seldinger technique. Sheath was placed over guidewire and used to facilitate passage of a guiding catheter for mapping of the interventricular septum. Pace mapping was performed in order to identify a suitable site for placement of the ventricular lead. Once identified the ventricular lead was advanced into the interventricular septum. The guiding catheter and sheath were subsequently removed and the proximal portion of the lead was then sutured to the prepectoralis pocket using nonabsorbable suture. Pacing lead to the right atrium under fluoroscopic guidance. Adequate sensing and threshold parameters were obtained prior to active fixation of this lead to the endocardial surface. The proximal portion of the lead was then sutured to the prepectoralis fascia using nonabsorbable suture. A sheath was placed over the remaining guidewire and use facilitate passage of theThe device pocket was irrigated with antibiotic solution. The leads were then attached to the device. The device and leads were then placed in the pocket and pocket was closed in 3 layers of absorbable suture. Steri-Strips and sterile dressing were applied. The device was tested noninvasively prior to conclusion the procedure. The patient tolerated procedure well there no immediate complications. Equipment used: New pulse generator: Entry Level [employer]ant [employer]. Model number: [id number] serial number [id number] Right atrial lead: Entry Level Accountant [employer]. Model number: 5076 serial number [id number] Right ventricular lead: Entry Level Accountant [employer]. Model number: 3830 serial number [id number] Measured data: Right atrial lead: P waves measured 2.3 mV. Pacing threshold was 0.75 V at 0.4 ms with a pacing impedance of 570 ohms Right ventricular lead: R waves measured 19.3 mV. Pacing threshold was 0.75 V at 0.4 ms with a pacing impedance of 817 ohms Impression: Successful implantation of dual-chamber permanent pacemaker with left bundle pacing lead [facility] Electrophysiology codes Pacing Procedure 1: Pacin Insert/Replace Pacer A & V PG Moderate Sedation Codes Moderate Sedation Codes Procedure 1: Sedation/Anesthesia: 91522 Mod Sedation by the same physician;Init15 Min Child Age 5 & Up Procedure 2: Sedation/Anesthesia: 02232 Mod Sedation by the same physician; Ea [id number] Minutes
--- NOTE | 2022-02-24 17:32 | XCELERA ---
[id number]
[2022-02-24] MEDS: TAMSULOSIN HCL 0.4 MG CAP PO SCH (20:51)
[2022-02-24] MEDS: ATORVASTATIN 20 MG TAB PO SCH (20:51)
[2022-02-24] MEDS: ceFAZolin 1000MG 1,000 MG/7.5 ML SYR IV SCH (23:28)
[2022-02-25] MEDS: ICU ELECTROLYTE REPLACEMENT PROTOCOL SCH (05:40)
[2022-02-25 06:05] LABS: Basophils # (auto) 0.01 K/uL (0-0.2); Basophils % (auto) 0.1 %; Eosinophils # (auto) 0.19 K/uL (0-0.5); Eosinophils % (auto) 2.8 %; Hematocrit (blood only) 41.7 % (42-52); Hemoglobin 13.4 g/dL (14.0-18.0); Immature Granulocytes # (auto) 0.03 K/uL (0.00-0.02); Immature Granulocytes % (auto) 0.4 %; Lymphocytes # (auto) 0.88 K/uL (1.2-3.4); Lymphocytes % (auto) 12.8 %; Mean Corpuscular Hemoglobin 31.3 pg (25-34); Mean Corpuscular Hgb Conc 32.1 g/dL (32-36); Mean Corpuscular Volume 97.4 fL (80-100); Mean Platelet Volume 11.2 fL (7.4-10.4); Monocytes # (auto) 0.32 K/uL (0.11-0.59); Monocytes % (auto) 4.6 %; Neutrophils # (auto) 5.46 K/uL (1.4-6.5); Neutrophils % (auto) 79.3 %; Platelet Count 100 K/uL (130-400); RDW Coefficient of Variation 13.5 % (11.5-14.5); RDW Standard Deviation 48.1 fL (36.4-46.3); Red Blood Count 4.28 M/uL (4.7-6.1); White Blood Count 6.89 K/uL (4.8-10.8)
[2022-02-25 06:39] LABS: Albumin Level 3.4 gm/dl (3.4-5.0); BUN Creatinine Ratio 16.5 (10-20); Bilirubin Direct 0.1 mg/dl (0-0.2); Bilirubin,Total 0.6 mg/dl (0.2-1.0); Calcium 9.3 mg/dl (8.5-10.1); Creatinine Clr Calc Pharmacy 60.8 ml/min; Est GFR (African American) 49.7 ml/min; Est GFR (Non-African American) 42.9 ml/min; Phosphorus 2.9 mg/dl (2.5-4.9); Potassium 4.5 mmol/L (3.5-5.1); Total Protein 5.6 gm/dl (6.0-8.3)
--- NOTE | 2022-02-25 06:39 | Electrocardiogram Report ---
Test Reason : Blood Pressure : / mmHG Vent. Rate : 059 BPM Atrial Rate : 059 BPM P-R Int : 184 ms QRS Dur : 176 ms QT Int : 492 ms P-R-T Axes : 026 064 -38 degrees QTc Int : 487 ms Sinus bradycardia with Premature atrial complexes Left bundle branch block Abnormal ECG When compared with ECG of 16-DEC-2017 07:32, Premature ventricular complexes are no longer Present Premature atrial complexes are now Present Left bundle branch block is now Present Confirmed by Allan Vasquez ([id number]) on 02/25/2022 6:39:13 AM Referred By: REFERRED SELF Confirmed By:Allan Vasquez
[2022-02-25] MEDS: ceFAZolin 1000MG 1,000 MG/7.5 ML SYR IV SCH (08:00)
[2022-02-25] MEDS: MYCOPHENOLATE SODIUM 180 MG TAB PO SCH (08:01)
[2022-02-25] MEDS: ENVARSUS PO SCH (08:01)
[2022-02-25] MEDS: prednisoLONE sod phosphate 15 MG/5 ML PO SCH (08:02)
--- NOTE | 2022-02-25 09:09 | XRay Report ---
XR chest 2V PA/lateral HISTORY: 61 years-old Male EXACT TIME ORDERED Evaluate for pneumothorax and l status post placement of a right subclavian pacer COMPARISON: 02/23/2022 TECHNIQUE: PA and lateral views of the chest FINDINGS: The cardiac silhouette is enlarged. Status post placement of a dual lead right subclavian pacer. The leads appear intact. Mild linear bibasilar scarring versus atelectasis. No overt pulmonary edema or l obar airspace consolidation. There is decreased pulmonary vascular congestion. No postprocedural pneu mothorax identified. Surgical clips of the upper abdomen. Degenerative changes of the shoulders and s pine. IMPRESSION: Status post placement of a dual-lead right subclavian pacer. No postprocedural pneumothor ax. ACT 112: Negative or not required by law. The above report was generated using voice recognition software. It may contain grammatical, syntax o r spelling errors. Electronically signed by: Ronald Bonilla M.D. 02/25/2022 9:06 AM
--- NOTE | 2022-02-25 09:43 | Cardiology Progress Note ---
Date of Service February 25, 2022 Assessment & Plan (1) Third degree heart block: Plan: status post implantation of dual-chamber permanent pacemaker. No evident complication. Normal device function. From our standpoint the patient could be discharged to day. He should refrain from lifting the right arm above the shoulder behind the neck for 6 weeks. He should keep the wound dry in the Steri-Strips intact until follow-up in our clinic next week. I will arrange t his follow-up visit. Additionally, given his immunocompromised status I would prefer he go home with 5 days of Keflex. 500 milligrams twice daily. Thank you Admission and Anticipated Discharge Date Admission Date: February 23, 2022 Subjective This morning patient claims to be feeling well. Some discomfort at the device implant site, but mild. No breathing difficulty. Review of Systems Review of Systems: Per HPI Physical Exam Physical Exam: evaluation of the device implant site did not reveal any significant ecchymosis. No erythema or drainage. No hematoma. Results & Data ([facility]) Vital Signs (Past 12 Hours) Vital Signs Temp Pulse Resp BP Pulse Ox 02/25/22 08:00 36.5 C 70 15 02/25/22 07:45 69 15 107/61 02/25/22 07:31 86 20 121/80 02/25/22 07:15 76 16 114/70 02/25/22 07:00 73 14 113/78 02/25/22 06:45 74 18 123/79 02/25/22 06:31 77 22 123/75 02/25/22 06:15 67 14 118/74 02/25/22 06:00 73 14 109/83 02/25/22 05:45 64 14 125/78 02/25/22 05:30 67 15 114/67 02/25/22 05:15 70 13 109/78 02/25/22 05:00 67 14 121/84 02/25/22 04:45 69 15 117/81 02/25/22 04:30 67 14 123/83 02/25/22 04:15 67 14 112/79 02/25/22 04:00 68 15 125/88 02/25/22 03:46 70 16 122/85 02/25/22 03:30 66 13 113/82 97 02/25/22 03:15 65 14 120/79 96 02/25/22 03:00 61 12 131/81 100 06/08/22 02:45 65 13 103/71 97 02/25/22 02:30 65 12 107/66 97 02/25/22 02:15 68 14 111/71 97 02/25/22 02:00 64 12 120/72 98 02/25/22 01:45 65 13 97/69 L 96 02/25/22 01:30 64 14 100/67 97 02/25/22 01:15 66 14 101/67 97 02/25/22 01:01 67 14 100/59 L 95 02/25/22 00:45 64 15 106/69 95 02/25/22 00:15 69 15 112/67 95 02/25/22 00:00 67 13 97/58 L 95 02/24/22 23:15 66 13 104/63 94 02/24/22 23:00 66 13 98/64 L 96 02/24/22 22:45 70 14 98/66 L 96 Diagnostic Findings ECHO placed device interrogation was performed. Normal function of both the atrial ventricular leads. Chest x-ray demonstrated normal lead position without pneumothorax
--- NOTE | 2022-02-25 10:16 | Nephrology Progress Note ---
Date of Service February 25, 2022 Assessment & Plan (1) Kidney transplant recipient: (2) Third degree heart block: (3) Cardiac arrest: (4) Chronic kidney disease, stage 3a: Plan: 61-year-old male with history of renal transplant with decent allograft function, baseline creatinine 1.6, admitted at after of out of hospital cardiac arrest secondary to complete heart block. Had transvenous pacer and cardiac catheterization yesterday showing minimum coronary artery disease. Currently clinically stable, had permanent pacemaker placed on 02/24/22 Renal function staying stable close to baseline, blood pressure stable, asymptomatic. Has been voiding normally. No sign of volume overload. Hb acceptable. -- Continue current immunosuppressive medication CellCept 360 twice a day, prednisone 5 mg and tacrolimus 3 mg extended release once a day -- OK to discharged, will check renal panel on 02/27/22 Will follow the Admission and Anticipated Discharge Date Admission Date: February 23, 2022 Michael Lyman was seen and evaluated this am. had Permanent Pacemaker placed yesterday. no overnight events, overall feeling well, blood pressure stable. Creatinine 1.7 this morning, close to baseline, electrolyte acceptable. Review of Systems Review of Systems: detailed review of system was otherwise unremarkable. Physical Exam Constitutional: WD/WN, vitals as above no acute distress Respiratory: Auscultation: lungs clear to auscultation bilaterally Cardiovascular: Rate/Rhythm: regular rate and regular rhythm Extremities: + AV fistula ( Left BC AVF with thrill and bruit.); no edema Musculoskeletal: Extremities: extremities normal to inspection Skin: no rashes Neurologic: no focal motor deficits Psychiatric: Orientation: alert and oriented x 3 Affect: euthymic affect Results & Data ([facility]) Vital Signs (Past 12 Hours) Vital Signs Temp Pulse Resp BP Pulse Ox 02/25/22 08:00 36.5 C 70 15 02/25/22 07:45 69 15 107/61 02/25/22 07:31 86 20 121/80 02/25/22 07:15 76 16 114/70 02/25/22 07:00 73 14 113/78 02/25/22 06:45 74 18 123/79 02/25/22 06:31 77 22 123/75 02/25/22 06:15 67 14 118/74 02/25/22 06:00 73 14 109/83 02/25/22 05:45 64 14 125/78 02/25/22 05:30 67 15 114/67 02/25/22 05:15 70 13 109/78 02/25/22 05:00 67 14 121/84 02/25/22 04:45 69 15 117/81 02/25/22 04:30 67 14 123/83 02/25/22 04:15 67 14 112/79 02/25/22 04:00 68 15 125/88 02/25/22 03:46 70 16 122/85 02/25/22 03:30 66 13 113/82 97 02/25/22 03:15 65 14 120/79 96 02/25/22 03:00 61 12 131/81 100 02/25/22 02:45 65 13 103/71 97 02/25/22 02:30 65 12 107/66 97 02/25/22 02:15 68 14 111/71 97 02/25/22 02:00 64 12 120/72 98 02/25/22 01:45 65 13 97/69 L 96 02/25/22 01:30 64 14 100/67 97 02/25/22 01:15 66 14 101/67 97 02/25/22 01:01 67 14 100/59 L 95 02/25/22 00:45 64 15 106/69 95 02/25/22 00:15 69 15 112/67 95 02/25/22 00:00 67 13 97/58 L 95 02/24/22 23:15 66 13 104/63 94 02/24/22 23:00 66 13 98/64 L 96 02/24/22 22:45 70 14 98/66 L 96 PG Care Time/CCT Total # of Minutes Spent Total Time Spent with Patient: Total time spent is greater than 50% in coordination of care (as documented) at patient's floor/unit and/or counseling patient: Coding Level of Care Code 82799 Subseq Hosp Care Lvl 3 Diagnoses Kidney transplant recipient Z94.0 Third degree heart block I44.2 Cardiac arrest I46.9 Chronic kidney disease, stage 3a N18.31
--- NOTE | 2022-02-25 10:46 | Discharge Summary ---
Date of Service February 25, 2022 Admission HPI Per Admitting Provider This patient is a 61-year-old male with a history of renal transplant at [facility] in 2018, gout, hyperlipidemia, HTN, who presents to the ER after passing out at work. He was in his usual state of health when he was at work today and he was sitting and his noticed that his head went backwards and he started having sonorous respirations. An ambulance was called and he was found to have ectopy and a second-degree heart block type II. He had another episode of syncope preceded by nausea and was noted by EMS to have 5 seconds of P waves but no QRS complexes but did not receive CPR. When he first came to the ER, he was noted to be in a sinus rhythm with ectopy but then had another episode of syncope with sinus arrest and had a brief period of CPR and a CODE BLUE. He was placed on transcutaneous pacing and given ketamine. After this his mentation significantly improved as well as his blood pressure. A heart alert was called he was taken to the [facility] for emergent transvenous pacer placement. His left heart cath showed minimal nonobstructive coronary artery disease and normal intracardiac filling pressure. I saw him after he was transferred to the ICU postintervention and he was drowsy after receiving Ativan for nausea. He was having some intermittent ventricular ectopy thought to be secondary to the transvenous catheter. Principal Diagnosis Acute third-degree heart block Discharge Exam General: A&Ox3. NAD. Cooperative. HEENT: Atraumatic, normocephalic. Pupils equal and reactive. Vision and hearing grossly intact. Pulm: CTAB A&P. -wheezes, -rales, -rhonchi. Symmetrical chest rise. No increase in work of breathing. No respiratory distress. Cardiac: RRR, -mrg. Radial pulses intact and symmetrical. Right upper chest with well-healing incision Steri-Strips intact no erythema/discharge/dehiscence at pacer placement site. Abdominal: Nontender, nondistended, soft. BS present. Extremities: Left AV fistula present, intact, with thrill. Discharge Data Allergies Allergy/AdvReac Type Severity Reaction Status Date / Time aspirin Allergy Severe Not able Verified 02/23/22 12:31 to swallow Consultations 02/23/22 12:09 Consult Cardiac Catheterization Stat 02/23/22 12:19 ED Decision to Admit Stat 02/23/22 13:28 Consult Electro Mechanical Designer Routine 02/23/22 14:06 Consult Nephrology Routine 02/24/22 07:20 Consult Cardiology Routine Procedures Performed Operation Date: 02/23/22 12:30 Actual Procedures p Cineradiography w/Routine Exam - Geovany Reynoso MD p Cath, Left with Cors and Vent - Geovany Reynoso MD p Ins/RemTemporary Transvenous Pacer - Geovany Reynoso MD Operation Date: 02/24/22 14:30 Actual Procedures p Pacer with A/V Leads (Dual) - Rashel Casanova MD s Venogram, Unilateral - Rashel Casanova MD Ordered Studies 02/23/22 12:04 CL Cath Imgs for PACS use only Stat 02/24/22 11:45 EP Lab Images for PACS ONCE Hospital Course (1) Third degree heart block: Nura is a 7-year-old male who presented with cardiac arrest and third- degree heart block causing syncope. Cardiac catheterization did not show clinically significant obstructive coronary disease. Lyme testing was negative. Patient underwent transcutaneous pacing in ER with CPR, and was transferred urgently to the cardiac [facility]. EKG did show new right bundle branch block and third-degree heart block. Following placement of a dual-chamber pacer patient clinically improved and felt at his normal baseline at time of discharge. Creatinine slightly high end of normal for patient, does have a history of renal transplant on immunosuppressive's. Was continued on Keflex 500 mg twice daily for 5 days due to potential for immunosuppression. To do as outpatient: 1. Follow-up with cardiology 2. Follow-up with PCP 3. Complete Keflex 100 mg twice daily x5-day course prophylactic 4. [facility] 02/27/2022 to follow creatinine and electrolytes, follow-up to PCP and nephrology Presents with cardiac arrest and third-degree heart block causing syncope Transcutaneously paced in the ER for brief round of CPR Transferred urgently to cardiac [facility] for transvenous pacer placement, left heart cath with minimal nonobstructive coronary artery disease and normal filling pressures Lyme titer negative, TSH normal Troponin mildly elevated on arrival at 53. ECG with third-degree heart block and new right bundle branch block Successfully dual-chamber pacemaker without complication (2) Nausea & vomiting: Related to syncope and heart block Now resolved Antiemetics as needed-Zofran, Phenergan, Ativan as needed Diet advanced during admission, patient doing clinically well at discharge (3) Cardiac arrest: Secondary to third-degree heart block (4) Bundle branch block, right: New onset Cardiac cath with minimal nonobstructive disease Suspect intrinsic conduction system disease for permanent pacemaker on 02/24/2022 (5) Kidney transplant recipient: Remains on prednisolone, mycophenolate, and tacrolimus-continue all these meds-his tacrolimus XR will have to be brought in from home Nephrology has been consulted Creatinine stable despite events (6) Anemia: Hemoglobin mildly low at 13.9, borderline macrocytic, with mildly low platelets Likely secondary to immune suppression plus chronic kidney disease (7) Secondary hyperparathyroidism of renal origin: Noted, followed by nephrology (8) CKD (chronic kidney disease) stage 3, GFR 30-59 ml/min: (9) Obstructive sleep apnea: Not on CPAP therapy (10) Hx of gout: Hold home allopurinol for now (11) Hypercholesterolemia: Continue statin Total Time Total Time Spent Total Time Spent (In Minutes): Time spend day of discharge 55 minutes including direct patient care, documentation, review of labs and images, and coordination of care. Discharge Plan Discharge Items Patient Disposition: Home - Self-Care Reason For Visit: HEART BLOCK Discharge Diagnosis: Third-degree heart block Activity: As commented below Activity Comment: no lifting right arm above the shoulder behind the neck for 6 weeks Bathing Comment: keep wound dry and Steri-Strips intact until follow-up in cardiology Non-emergency contact: Primary Care Provider and Collection Manager Call non-emergency contact if: you have any medication questions and your symptoms worsen Follow-up/Referrals: Geovany Reynoso MD [Physician] - Yari Ashby MD [Primary Care Provider] - Diet: Dialysis Renal and Heart Healthy Ambulatory Orders: Basic Metabolic Panel (Routine) Timeframe: 2 Days Location: Determined by Patient Ordered By: Abimael Bustillos Attending Provider Instructions: You were seen in the hospital for third-degree heart block, a condition where the electrical signal in the top of the heart does not communicate with the bottom of the heart. You had a dual-chamber permanent pacemaker placed by cardiology and did well. You had a cardiac catheterization which did not show evidence of clinically significant obstructive coronary disease. Your Lyme testing was negative. Given your transplant and concern for immunocompromise status it is been recommended that you continue 5 days of Keflex, he did not show signs of infection at time of discharge. Please continue 500 mg of Keflex twice daily for 5 days. Follow-up appointments are being scheduled for you with cardiology and your primary care physician as noted above if you do not receive a call to confirm these appointments within 48 hours, please contact their offices directly at the number above. You should be seen by your primary care physician for follow-up within 1 week. You should have blood work drawn this 02/27/2022 to follow your kidney function and electrolytes. Please follow-up on this blood work with your primary care physician. If you develop any new or worsening symptoms including fever, chills, sweats, chest pain, chest pressure, difficulty breathing, uncontrolled nausea/vomiting, rash, wheezing, passing out or nearly passing out, bleeding, black/bloody bowel movements, or other new or concerning symptoms please call your primary care physician, or call 911 for re-evaluation in the emergency department if you are very concerned. Pending Studies at Discharge: No Stand-Alone Forms: [facility] Fun, Smoking Cessation Medications and DC Order Prescriptions: New cephalexin 500 mg capsule 500 mg PO Q12H 5 Days Qty: 10 RF: 0 Continued cholecalciferol (vitamin D3) 2,000 unit tablet 2,000 units PO QAM RF: 0 Envarsus XR 1 mg tablet extended release 24 hr 3 mg PO QAM RF: 0 mycophenolate sodium 360 mg tablet,delayed release (DR/EC) 360 mg PO BID RF: 0 atorvastatin 20 mg tablet 20 mg PO HS RF: 0 tamsulosin 0.4 mg capsule 0.4 mg PO HS RF: 0 allopurinol 300 mg tablet 300 mg PO QAM RF: 0 prednisolone 5 mg tablet 5 mg PO QAM RF: 0 Discharge Orders: Discharge Order (Routine); Ordered 02/25/22 Ordered By: Abimael Horvath Admission Data Admit Date/Time: 02/23/22 13:28 Attending Provider: Abimael Horvath Admit Provider: Geovany Reynoso Primary Care Provider: Yari Ashby Other Providers: Geovany Reynoso ; Minerva Sagatsume ; Dallas Paniagua ; Kamryn Lynn ; Onesimo Perez ; Nakul Becerra ; Joy Medina ; Luis Alberto Morris ; Rashel Casanova Coding Level of Care Code D/C DAY MANAGEMENT >30 MINS Diagnoses Third degree heart block I44.2 Nausea & vomiting R11.2 Cardiac arrest I46.9 Bundle branch block, right I45.10 Kidney transplant recipient Z94.0 Anemia D64.9 Secondary hyperparathyroidism of renal origin N25.81 CKD (chronic kidney disease) stage 3, GFR 30-59 ml/min N18.30 Obstructive sleep apnea G47.33 Hx of gout Z87.39 Hypercholesterolemia E78.00
--- NOTE | 2022-02-25 22:01 | Electrocardiogram Report ---
Test Reason : Blood Pressure : / mmHG Vent. Rate : 062 BPM Atrial Rate : 065 BPM P-R Int : 214 ms QRS Dur : 170 ms QT Int : 460 ms P-R-T Axes : 036 078 267 degrees QTc Int : 466 ms Atrial-paced rhythm with prolonged AV conduction Left bundle branch block Abnormal ECG When compared with ECG of 23-FEB-2022 11:51, Electronic atrial pacemaker has replaced Sinus rhythm Confirmed by Allan Vasquez ([id number]) on 02/25/2022 10:01:34 PM Referred By: REFERRED SELF Confirmed By:Allan Vasquez
== END 2022-02-25 11:44 | disposition home or self-care (01) | DRG 242 ==
LOC: ED 11:40 → OR 12:28 → 1E 13:28 → SUATTDRO 13:28